=== PATIENT | male | born 1945 | race Caucasian/White ===

== ENCOUNTER → 2016-10-08 | Outpatient (CLI) | payer OTHER ==
[~2016-10-08] MED LIST: ASPI-586 PO; diclofenac; sertraline
--- OUTSIDE RECORDS SUMMARY | 2016-10-08 10:46 | XMS REPORT | Continuity of Care Document ---
Author Author [facility] Organization [facility] Address Unknown Phone Unavailable Care Team Providers Care Pot Annealer Name Role Phone PCP Unavailable Source Comments Some departments are not documenting in the electronic medical record. If you do not see the information that you expected, contact Release of Information in the Health Information Management department at [phone] for further assistance in locating additional records.[facility] Active Allergies and Adverse Reactions Allergen Noted Date Severity Reactions Comments Codeine 10/11/2006 High Allergy recorded in SMS: Codeine~Reactions: NAUSEA Current Medications Not on file Active Problems Not on file Social History Tobacco Use Types Packs/Day Years Used Date Never Assessed Plan of Care Health Maintenance Due Date Last Done Comments Physical (Comprehensive) 1952 Exam Pertussis Vaccine 1957 Tetanus Vaccine 1963 Colorectal Cancer 02/13/1996 Screening Shingles Vaccine 2006 Prevnar/Pneumovax (#1) 2011 Influenza Vaccine 03/28/2016 Results from Last 3 Months Not on file
--- NOTE | 2016-10-09 15:28 | Diagnostic Imaging Report ---
EXAMINATION: PET-CT. TECHNIQUE: Serum glucose level at the time of the study is: 100 mg/dL. 11.2 mCi of FDG was administered intravenously followed by obtaining PET images with corresponding noncontrast CT scan images. The CT scan was performed for anatomic correlation and attenuation correction and was not performed according to the diagnostic protocol of the areas covered. The scan was performed over the whole body. INDICATION: Pulmonary nodules. FINDINGS: The brain demonstrates symmetric FDG uptake with no definite focal lesion identified. There is slightly asymmetric, more prominent increased FDG uptake in the posterior aspect of the nasopharynx which does not appear to be associated with an obvious mass based on the CT scan. There is also diffuse activity seen in the tongue and palate region. This is possibly inflammatory or physiologic. There is also prominent muscle activity in the root of the neck seen with no definitive hypermetabolic lymph node in the cervical chain seen. In the lung, there is a hypermetabolic nodule with a maximum SUV of 6.2 cm in the right upper lobe. This is associated with the CT scan measurement of 1 cm. In the left upper lobe, there is a larger nodule measuring 1.5 cm. This has minimally enlarged compared to the 08/16/2016 CT scan. The maximum SUV in this left upper lobe nodule at the level of the aortic arch is 10. There is no other hypermetabolic lung nodule and no hypermetabolically enlarged lymph node in the mediastinum or wes on either side. Images of the abdomen and pelvis demonstrate excretion of contrast in the urinary tract. There is right hip replacement. No hypermetabolic mass or enlarged lymph node is seen. There is an infrarenal AAA seen measuring 5.1 cm in maximum caliber. This is extending into the iliac arteries with a right common iliac aneurysm measuring 2 cm extending to the iliac bifurcation with normal caliber of the internal iliac and external iliac arteries on the right side. The left common iliac artery is also dilated just proximal to the bifurcation at 1.5 cm in caliber. There is no hypermetabolic suspicious mass seen in the lower extremities. There is right knee replacement resulting in beam hardening artifacts. IMPRESSION: 1. Hypermetabolic suspicious pulmonary nodules in the right upper lobe and in the left upper lobe with no associated hilar or mediastinal lymphadenopathy. No other suspicious hypermetabolic activity is seen. These nodules are most likely related to synchronous early lung cancers. 2. Significant increased FDG activity around the oral cavity and nasopharynx is favored to be physiologic or inflammatory in nature. Correlate with physical exam. 3. Infrarenal abdominal aortic aneurysm measuring 5.1 CM in caliber. The findings were discussed with the Dr. Lunsford at the [place], by Dr. Amina Jo 10/10/2016 2 PM. Dictated by: Dictated on workstation # [id number]
== END ==
LOC: RAD 10:43
PROVIDERS: ATTEND Internal Medicine
DX: D38.1 Neoplasm of uncertain behavior of trachea, bronchus and lung (principal)
CPT/HCPCS: 78816

== ENCOUNTER → 2016-10-14 | Outpatient (CLI) | payer OTHER ==
[~2016-10-14] MED LIST changes: +GADOBUTROL 7.5 MMOL/7.5 ML (GADAVIST) VIAL IV ONE
--- OUTSIDE RECORDS SUMMARY | 2016-10-14 11:28 | XMS REPORT | Continuity of Care Document ---
Author Author [facility] Organization [facility] Address Unknown Phone Unavailable Care Team Providers Care Carnallite Plant Operator Name Role Phone PCP Unavailable Source Comments Some departments are not documenting in the electronic medical record. If you do not see the information that you expected, contact Release of Information in the Health Information Management department at [phone] for further assistance in locating additional records.[facility] Active Allergies and Adverse Reactions Allergen [...]
--- NOTE | 2016-10-14 13:25 | Diagnostic Imaging Report ---
PROCEDURE: MR imaging of the brain with and without contrast. TECHNIQUE: Multiplanar, multisequence MR imaging of the brain was performed with and without contrast. INDICATION: Right eye ptosis. Lung nodules. 7 mL of Gadovist is administered intravenously. FINDINGS: There is no diffusion restriction to suggest an acute infarct or other diffusion abnormality. The brain parenchyma demonstrates minimal periventricular and deep white matter T2 hyperintense signal abnormality without associated significant mass effect or postcontrast enhancement compatible with chronic microvascular ischemic changes. This is expected for the patient's age. There is no enhancing mass. No demyelinating plaques. There is no hydrocephalus. No extra-axial fluid collection is seen. The central vascular flow voids appear unremarkable. The pituitary gland is normal in size. No hypothalamic or pineal region mass. There is mild mucosal thickening seen in the maxillary sinuses and mucus retention cyst in the right maxillary sinus. The orbits appear symmetric with no gross abnormality identified in the globes, the extraocular muscles or the optic nerves. IMPRESSION: No acute infarct or enhancing mass. Dictated by: Dictated on workstation # [id number]
== END ==
LOC: RAD 11:25
PROVIDERS: ATTEND Psychiatry & Neurology Neurology
DX: H02.401 Unspecified ptosis of right eyelid (principal)
CPT/HCPCS: 70553

== ENCOUNTER → 2016-10-17 | Day surgery (SDC) | payer OTHER ==
[2016-10-17] VITALS (14 sets, daily range): BP systolic 130–179; BP diastolic 73–101
[~2016-10-17] VITALS: Ht 170.2 cm; Wt 72.6 kg
[~2016-10-17] MED LIST changes: -GADOBUTROL 7.5 MMOL/7.5 ML (GADAVIST) VIAL IV ONE; +HYDROcodone/APAP 5 MG/325 MG (LORTAB) TAB PO PRN; +LIDOCAINE 1% INJ 20 ML (XYLOCAINE) VIAL INJ ONE; +LIDOCAINE 1% INJ 20 ML (XYLOCAINE) VIAL ONE; +fentaNYL INJECTION 100 MCG/2 ML AMP ONE
[2016-10-17 07:30] LABS: MEAN PLATELET VOLUME 10.5 FL (7.4-10.4); RED BLOOD COUNT 4.98 10^6/uL (4.35-5.85); RED CELL DISTRIBUTION WIDTH 14.2 % (10.0-14.5); WHITE BLOOD COUNT 8.4 10^3/uL (4.3-11.0)
[2016-10-17 07:40] LABS: PROTHROMBIN TIME PATIENT 13.3 SEC (12.2-14.7)
--- NOTE | 2016-10-17 09:44 | Diagnostic Imaging Report ---
EXAMINATION: CT-guided biopsy-lung. INDICATION: Bilateral suspicious lung nodules may represent synchronous primary tumors. Current history and physical and other medical records are reviewed prior to the procedure. CONSENT: Informed consent was obtained from the patient. The risks, benefits, potential complications and alternatives were reviewed and all questions answered to the patient's satisfaction. The patient's vital signs, cardiac rhythm, and pulse oximetry were observed throughout the procedure by qualified nursing personnel. Sedation/medications: none. FINDINGS: 1.5 cm suspicious left upper lobe nodule. PROCEDURE: After maximal sterile barrier technique preparation and draping, 1% lidocaine was utilized for local anesthesia. With the patient in supine position, and via anterior intercostal approach, a 19-gauge guide needle is introduced into the left upper lobe nodule under CT scan guidance. After confirming adequate positioning with saved CT images, multiple 20 gauge core biopsy specimens were obtained. Autologous blood patch injected in the tract as the guide needle was removed The patient tolerated the procedure well with no immediate complications. IMPRESSION: Successful CT-guided biopsy of left upper lobe pulmonary nodule. Dictated by: Dictated on workstation # [id number]
--- NOTE | 2016-10-17 09:44 | Discharge Instructions ---
Discharge Instructions Home Medicaitons Changes Hold any current blood thinner home medications for [24 hours]. VERONICA MURPHY MD Oct 17, 2016 09:44
--- NOTE | 2016-10-17 13:28 | Diagnostic Imaging Report ---
Portable upright radiograph of the chest. INDICATION: Post lung biopsy. FINDINGS: There is left basilar opacity likely related to atelectasis. There is no pneumothorax. Left suprahilar pulmonary nodule is seen. The right apical nodule seen on the recent CT and PET scan studies is faintly visualized. The heart size is normal. IMPRESSION: Left basilar mild atelectasis. Left suprahilar and right upper lobe nodule. Dictated by: Dictated on workstation # [id number]
--- OUTSIDE RECORDS SUMMARY | 2016-10-20 08:27 | XMS REPORT | Continuity of Care Document ---
Author Author [facility] Organization [facility] Address Unknown Phone Unavailable Care Team Providers Care Personal Financial Representative Name Role Phone PCP Unavailable Source Comments Some departments are not documenting in the electronic medical record. If you do not see the information that you expected, contact Release of Information in the Health Information Management department at [phone] for further assistance in locating additional records.[facility] Active Allergies and Adverse Reactions Allergen Noted Date Severity Reactions Comments Codeine 10/11/2006 High Allergy recorded in SMS: Codeine~Reactions: NAUSEA Current Medications Not on file Active Problems Not on file Social History Tobacco Use Types Packs/Day Years Used Date Never Assessed Plan of Care Health Maintenance Due Date Last Done Comments Hepatitis C Screening 1945 Physical (Comprehensive) 1953 Exam Pertussis Vaccine 1957 Tetanus Vaccine 1963 Colorectal Cancer 02/13/1996 Screening Shingles Vaccine 2006 Prevnar/Pneumovax (#1) 2011 Influenza Vaccine 03/28/2017 Results from Last 3 Months Not on file
== END | disposition home or self-care (01) ==
LOC: DELPENDDIS → RAD 06:53
PROVIDERS: ATTEND Internal Medicine
DX: C34.12 Malignant neoplasm of upper lobe, left bronchus or lung (principal); I25.10 Atherosclerotic heart disease of native coronary artery without angina pectoris; I10 Essential (primary) hypertension; Z95.5 Presence of coronary angioplasty implant and graft
CPT/HCPCS: 36415; 71035; 77012; 81235; 85027; 85610; 85730; 88305; 88344; 88368; 88381

== ENCOUNTER 2016-12-24 10:25 | Day surgery (SDC) | payer OTHER ==
[2016-12-24] VITALS (15 sets, daily range): BP systolic 109–187; BP diastolic 66–115
[~2016-12-24] VITALS: Ht 170.2 cm; Wt 72.6 kg
[~2016-12-24 10:25] MED LIST changes: -HYDROcodone/APAP 5 MG/325 MG (LORTAB) TAB PO PRN; -LIDOCAINE 1% INJ 20 ML (XYLOCAINE) VIAL INJ ONE; -LIDOCAINE 1% INJ 20 ML (XYLOCAINE) VIAL ONE; -fentaNYL INJECTION 100 MCG/2 ML AMP ONE
[2016-12-24] MEDS ORDERED: LIDOCAINE 1% INJ 20 ML (XYLOCAINE) VIAL INJ ONE (10:45)
[2016-12-24 10:51] LABS: RED BLOOD COUNT 5.31 10^6/uL (4.35-5.85); RED CELL DISTRIBUTION WIDTH 14.1 % (10.0-14.5); WHITE BLOOD COUNT 10.1 10^3/uL (4.3-11.0)
[2016-12-24 11:09] LABS: PROTHROMBIN TIME PATIENT 12.6 SEC (12.2-14.7)
--- NOTE | 2016-12-24 13:22 | Pre-Procedure Progress Note ---
Pre-Procedure Progress Note H&P Reviewed The H&P was reviewed, patient examined and no changes noted. Date H&P Reviewed: December 24, 2016 Time H&P Reviewed: 12:00 Pre-Procedure Diagnosis: lung nodule VERONICA MURPHY MD December 24, 2016 13:22
--- NOTE | 2016-12-24 13:23 | Discharge Instructions ---
Discharge Instructions Home Medicaitons Changes Hold Aspirin for [24 hours]. VERONICA MURPHY MD December 24, 2016 13:23
[2016-12-24] MEDS ORDERED: HYDROcodone/APAP 5 MG/325 MG (LORTAB) TAB PO PRN (13:30)
--- NOTE | 2016-12-24 14:14 | Diagnostic Imaging Report ---
EXAMINATION: CT-guided biopsy-lung. INDICATION: Right upper lobe nodule suspicious for cancer. The patient has a biopsy-proven left upper lobe lung cancer. Current history and physical and other medical records are reviewed prior to the procedure. CONSENT: Informed consent was obtained from the patient. The risks, benefits, potential complications and alternatives were reviewed and all questions answered to the patient's satisfaction. The patient's vital signs, cardiac rhythm, and pulse oximetry were observed throughout the procedure by qualified nursing personnel. Sedation/medications: none. FINDINGS: Right upper lobe suspicious nodule. PROCEDURE: After maximal sterile barrier technique preparation and draping, 1% lidocaine was utilized for local anesthesia. With the patient in right side down position, and via posterior intercostal approach, a 19-gauge guide needle is introduced into the right upper lobe nodule under CT scan guidance. After confirming adequate positioning with saved CT images, multiple 20 gauge core biopsy specimens were obtained. 3 cc of autologous blood patch injected in the tract as the guide needle was removed The patient tolerated the procedure well with no immediate complications. Expected small amount of hemorrhage is seen around the nodule however. IMPRESSION: Successful CT-guided biopsy of right upper lobe nodule. Dictated by: Dictated on workstation # [id number]
--- NOTE | 2016-12-24 15:45 | Diagnostic Imaging Report ---
EXAMINATION: Portable expiratory upright view of the chest. INDICATION: Lung nodule status post biopsy. FINDINGS: There is consolidation in the right upper lobe, compatible with a small to moderate pulmonary hemorrhage around the biopsy site. There is mild left basilar atelectasis. No pneumothorax. No significant effusion. The heart size is normal. IMPRESSION: Small to moderate pulmonary hemorrhage in the right upper lobe near the biopsy site. No pneumothorax. Dictated by: Dictated on workstation # [id number]
== END 2016-12-24 17:25 | disposition home or self-care (01) ==
LOC: RAD 10:25
PROVIDERS: ATTEND Internal Medicine Hematology & Oncology
DX: C34.11 Malignant neoplasm of upper lobe, right bronchus or lung (principal); C34.12 Malignant neoplasm of upper lobe, left bronchus or lung; F17.210 Nicotine dependence, cigarettes, uncomplicated; I25.10 Atherosclerotic heart disease of native coronary artery without angina pectoris; I11.0 Hypertensive heart disease with heart failure; I50.32 Chronic diastolic (congestive) heart failure; J44.9 Chronic obstructive pulmonary disease, unspecified; F43.10 Post-traumatic stress disorder, unspecified; Z95.5 Presence of coronary angioplasty implant and graft; Z85.818 Personal history of malignant neoplasm of other sites of lip, oral cavity, and pharynx; Z85.830 Personal history of malignant neoplasm of bone; Z92.21 Personal history of antineoplastic chemotherapy; Z92.3 Personal history of irradiation
CPT/HCPCS: 36415; 71035; 77012; 85027; 85610; 85730; 88305; 88344

== ENCOUNTER 2017-02-20 10:00 | Outpatient (RCR) | payer OTHER ==
[2017-02-20 10:32] LABS: BASOPHILS % (AUTO) 0 % (0-10); EOSINOPHILS # (AUTO) 0.9 10^3/uL (0.0-0.3); EOSINOPHILS % (AUTO) 17 % (0-10); LYMPHOCYTES # (AUTO) 0.9 X 10^3 (1.0-4.0); LYMPHOCYTES % (AUTO) 16 % (12-44); MEAN CORPUSCULAR HEMOGLOBIN 29 PG (25-34); MEAN CORPUSCULAR HGB CONC 33 G/DL (32-36); MEAN CORPUSCULAR VOLUME 88 FL (80-99); MEAN PLATELET VOLUME 9.8 FL (7.4-10.4); MONOCYTES # (AUTO) 0.9 X 10^3 (0.0-1.0); MONOCYTES % (AUTO) 16 % (0-12); NEUTROPHILS # (AUTO) 2.9 X 10^3 (1.8-7.8); NEUTROPHILS % (AUTO) 52 % (42-75); PLATELET COUNT 160 10^3/uL (130-400); RED BLOOD COUNT 4.78 10^6/uL (4.35-5.85); RED CELL DISTRIBUTION WIDTH 14.6 % (10.0-14.5); WHITE BLOOD COUNT 5.6 10^3/uL (4.3-11.0)
[2017-02-20 11:45] LABS: ALANINE AMINOTRANSFERASE 14 U/L (0-55); ALBUMIN 3.7 GM/DL (3.2-4.5); ANION GAP 10 MMOL/L (5-14); ASPARTATE AMINO TRANSFERASE 19 U/L (5-34); BILIRUBIN,TOTAL 0.4 MG/DL (0.1-1.0); BLOOD UREA NITROGEN 8 MG/DL (7-18); BUN/CREATININE RATIO 12; CALCIUM 8.8 MG/DL (8.5-10.1); CARBON DIOXIDE 25 MMOL/L (21-32); CHLORIDE 98 MMOL/L (98-107); CREATININE SERUM 0.68 MG/DL (0.60-1.30); GFR ESTIMATED > 60; GLUCOSE 104 MG/DL (70-105); POTASSIUM 4.5 MMOL/L (3.6-5.0); SODIUM 133 MMOL/L (135-145); TOTAL PROTEIN 6.5 GM/DL (6.4-8.2)
== END 2017-02-25 11:45 | disposition home or self-care (01) ==
LOC: ONC 10:00
PROVIDERS: ATTEND Internal Medicine Hematology & Oncology
DX: C34.12 Malignant neoplasm of upper lobe, left bronchus or lung (principal); C34.11 Malignant neoplasm of upper lobe, right bronchus or lung; F17.210 Nicotine dependence, cigarettes, uncomplicated; I25.10 Atherosclerotic heart disease of native coronary artery without angina pectoris; I11.0 Hypertensive heart disease with heart failure; I50.32 Chronic diastolic (congestive) heart failure; J44.9 Chronic obstructive pulmonary disease, unspecified; E11.9 Type 2 diabetes mellitus without complications; F43.10 Post-traumatic stress disorder, unspecified; Z85.818 Personal history of malignant neoplasm of other sites of lip, oral cavity, and pharynx; Z85.830 Personal history of malignant neoplasm of bone; Z92.21 Personal history of antineoplastic chemotherapy; Z92.3 Personal history of irradiation; Z79.899 Other long term (current) drug therapy
CPT/HCPCS: 36415; 80053; 84153; 84439; 84443; 85025; 99213; 99214

== ENCOUNTER → 2017-05-28 | Outpatient (CLI) | payer OTHER ==
[~2017-05-28] MED LIST changes: +CATHETER FLUSH 10 ML SYR IV PRN; +IOHEXOL 350 MG/ML 100 ML (OMNIPAQUE 350) VIAL IV ONE; +NS 100 ML (IVPB) BAG IV ONE
--- NOTE | 2017-05-28 16:24 | Diagnostic Imaging Report ---
EXAMINATION: CT neck and chest performed with intravenous contrast. 100 mL of Omnipaque 350 is administered intravenously. INDICATION: Lung cancer. COMPARISON: PET/CT of 10/08/2016. FINDINGS: CT NECK: There is mucosal thickening seen in the supraglottic aspect of the larynx in a diffuse fashion without a focal area of a discrete mass lesion identified. The rest of the mucosal pharyngeal space appear unremarkable. The thyroid, the parotid and the submandibular glands appear unremarkable. No significantly enlarged lymph nodes are seen in the cervical chain. The visualized portions of the orbits appear grossly unremarkable. There is mild mucosal retention cyst in the inferior aspect of the right maxillary sinus and mild mucosal thickening along the medial aspect of the mastoid air cells bilaterally. The middle ear cavities are clear. The osseous structures demonstrate no destructive mass. CT CHEST: There is a 1 cm right lung apex nodule and a 0.9 cm left upper lobe nodule. The right lung apex nodule is unchanged from 10/08/2016 exam. The left upper lobe nodule is significantly smaller compared to prior measurements of 1.5 cm. The lungs demonstrate otherwise no significant consolidation, mass or other suspicious nodule. There is nonspecific tiny nodule measuring 3 mm in the lateral aspect of the right upper lobe, appears to be stable from 08/16/2016 exam of uncertain significance. The heart size is normal. No mediastinal mass. No significantly enlarged lymph node is seen. No hilar or axillary significant lymphadenopathy. No aortic dissection. No pericardial or pleural effusion. The osseous structures appear grossly unremarkable. IMPRESSION: CT NECK: Mucosal thickening in a diffuse fashion in the supraglottic larynx of uncertain etiology. Consider inflammatory or infectious laryngitis. No definite focal mass. ENT evaluation is recommended. CT CHEST: 1. Significant improvement in the left upper lobe nodule measuring now 0.9 cm. 2. Stable 1 cm right lung apex nodule. 3. Indeterminate stable 3 mm lateral right upper lobe nodule seen on axial image 17. Followup exams recommended. Dictated by: Dictated on workstation # [id number]
== END ==
LOC: RAD 11:49
PROVIDERS: ATTEND Internal Medicine Hematology & Oncology
DX: C34.11 Malignant neoplasm of upper lobe, right bronchus or lung (principal); R91.8 Other nonspecific abnormal finding of lung field; J38.7 Other diseases of larynx
CPT/HCPCS: 70491; 71260

== ENCOUNTER 2017-06-03 14:23 | Outpatient (RCR) | payer OTHER ==
[2017-04-29 14:36] LABS: BASOPHILS % (AUTO) 0 % (0-10); EOSINOPHILS # (AUTO) 0.7 10^3/uL (0.0-0.3); EOSINOPHILS % (AUTO) 11 % (0-10); HEMATOCRIT 42 % (40-54); HEMOGLOBIN 14.5 G/DL (13.3-17.7); LYMPHOCYTES % (AUTO) 17 % (12-44); MEAN CORPUSCULAR HEMOGLOBIN 30 PG (25-34); MEAN CORPUSCULAR HGB CONC 34 G/DL (32-36); MEAN CORPUSCULAR VOLUME 86 FL (80-99); MEAN PLATELET VOLUME 9.8 FL (7.4-10.4); MONOCYTES # (AUTO) 0.9 X 10^3 (0.0-1.0); MONOCYTES % (AUTO) 14 % (0-12); NEUTROPHILS # (AUTO) 3.7 X 10^3 (1.8-7.8); NEUTROPHILS % (AUTO) 59 % (42-75); PLATELET COUNT 176 10^3/uL (130-400); RED CELL DISTRIBUTION WIDTH 14.7 % (10.0-14.5); WHITE BLOOD COUNT 6.3 10^3/uL (4.3-11.0)
[2017-04-29 14:56] LABS: ALANINE AMINOTRANSFERASE 13 U/L (0-55); ALBUMIN 3.9 GM/DL (3.2-4.5); ALKALINE PHOSPHATASE 56 U/L (40-136); BILIRUBIN,TOTAL 0.5 MG/DL (0.1-1.0); BUN/CREATININE RATIO 17; CALCIUM 8.7 MG/DL (8.5-10.1); CARBON DIOXIDE 28 MMOL/L (21-32); CHLORIDE 98 MMOL/L (98-107); GFR ESTIMATED > 60; GLUCOSE 66 MG/DL (70-105); POTASSIUM 4.4 MMOL/L (3.6-5.0); SODIUM 133 MMOL/L (135-145); TOTAL PROTEIN 6.9 GM/DL (6.4-8.2)
[~2017-06-03 14:23] MED LIST changes: -CATHETER FLUSH 10 ML SYR IV PRN; -IOHEXOL 350 MG/ML 100 ML (OMNIPAQUE 350) VIAL IV ONE; -NS 100 ML (IVPB) BAG IV ONE
[2017-06-03 14:43] LABS: BASOPHILS % (AUTO) 0 % (0-10); EOSINOPHILS # (AUTO) 1.1 10^3/uL (0.0-0.3); EOSINOPHILS % (AUTO) 12 % (0-10); HEMATOCRIT 44 % (40-54); HEMOGLOBIN 15.1 G/DL (13.3-17.7); LYMPHOCYTES # (AUTO) 1.2 X 10^3 (1.0-4.0); LYMPHOCYTES % (AUTO) 13 % (12-44); MEAN CORPUSCULAR HEMOGLOBIN 30 PG (25-34); MEAN CORPUSCULAR HGB CONC 35 G/DL (32-36); MEAN CORPUSCULAR VOLUME 86 FL (80-99); MEAN PLATELET VOLUME 9.8 FL (7.4-10.4); MONOCYTES # (AUTO) 1.3 X 10^3 (0.0-1.0); MONOCYTES % (AUTO) 14 % (0-12); NEUTROPHILS # (AUTO) 5.6 X 10^3 (1.8-7.8); NEUTROPHILS % (AUTO) 62 % (42-75); PLATELET COUNT 182 10^3/uL (130-400); RED BLOOD COUNT 5.05 10^6/uL (4.35-5.85); RED CELL DISTRIBUTION WIDTH 14.6 % (10.0-14.5); WHITE BLOOD COUNT 9.2 10^3/uL (4.3-11.0)
[2017-06-03 15:01] LABS: ALANINE AMINOTRANSFERASE 14 U/L (0-55); ALBUMIN 3.9 GM/DL (3.2-4.5); ALKALINE PHOSPHATASE 64 U/L (40-136); BILIRUBIN,TOTAL 0.5 MG/DL (0.1-1.0); BUN/CREATININE RATIO 14; CARBON DIOXIDE 25 MMOL/L (21-32); CHLORIDE 98 MMOL/L (98-107); CREATININE SERUM 0.69 MG/DL (0.60-1.30); GFR ESTIMATED > 60; GLUCOSE 95 MG/DL (70-105); POTASSIUM 4.8 MMOL/L (3.6-5.0); SODIUM 133 MMOL/L (135-145); TOTAL PROTEIN 6.8 GM/DL (6.4-8.2)
== END 2017-07-28 | disposition home or self-care (01) ==
LOC: ONC 14:23
PROVIDERS: ATTEND Internal Medicine Hematology & Oncology
DX: C34.12 Malignant neoplasm of upper lobe, left bronchus or lung (principal); C34.11 Malignant neoplasm of upper lobe, right bronchus or lung; F17.210 Nicotine dependence, cigarettes, uncomplicated; I25.10 Atherosclerotic heart disease of native coronary artery without angina pectoris; I11.0 Hypertensive heart disease with heart failure; I50.32 Chronic diastolic (congestive) heart failure; J44.9 Chronic obstructive pulmonary disease, unspecified; E11.9 Type 2 diabetes mellitus without complications; F43.10 Post-traumatic stress disorder, unspecified; E53.8 Deficiency of other specified B group vitamins; Z85.818 Personal history of malignant neoplasm of other sites of lip, oral cavity, and pharynx; Z85.830 Personal history of malignant neoplasm of bone; Z92.21 Personal history of antineoplastic chemotherapy; Z92.3 Personal history of irradiation; Z79.899 Other long term (current) drug therapy
CPT/HCPCS: 36415; 80053; 85025; 99213

== ENCOUNTER 2017-10-03 10:33 | Emergency (ER) | payer OTHER ==
[~2017-10-03] VITALS: Ht 170.2 cm; Wt 68.0 kg
[2017-10-03] MEDS ORDERED: OFLO10DR24 OT (10:43)
[2017-10-03] MEDS ORDERED: AMOX500C2 PO (10:43)
--- NOTE | 2017-10-03 10:44 | ED EENT ---
History of Present Illness General Chief Complaint: Pediatric Illness/Problems Stated Complaint: RT EAR DRAINAGE/HARD OF HEARING PT Source: patient Exam Limitations: no limitations History of Present Illness Date Seen by Provider: Oct 03, 2017 Time Seen by Provider: 10:40 Initial Comments To ER with reports of right ear drainage for the past 2 or 3 days. He slept with his hearing aid and last night and awakened with crust around the hearing aid and a painful right ear. Timing/Duration: abrupt Severity: moderate Location: ear (R) Associated Symptoms: denies symptoms Allergies and Home Medications Allergies Coded Allergies: No Known Drug Allergies (Unverified , 10/14/16) Home Medications Aspirin 81 Mg Tablet.dr, 81 MG PO DAILY, (Reported) Patient Home Medication List Home Medication List Reviewed: Yes Review of Systems Constitutional: see HPI Eyes: No Symptoms Reported Ears: See HPI, Pain, Purulent Discharge Nose: no symptoms reported Mouth: no symptoms reported Throat: no symptoms reported Respiratory: no symptoms reported Cardiovascular: no symptoms reported Musculoskeletal: no symptoms reported Past Qgbblau-Yslyku-Nuhnmh Hx Patient Social History Type Used: Cigarettes Recent Foreign Travel: No Contact w/Someone Who Travel: No Physical Exam General Appearance: WD/WN, no apparent distress Eyes: bilateral eye normal inspection, bilateral eye PERRL, bilateral eye EOMI Ears: right ear other (tympanic membrane unable to be visualized due to the purulent drainage and swelling of the ear canal. There is swelling and drainage in the ear canal.), bilateral ear auricle normal Mouth/Throat: normal mouth inspection, pharynx normal Neck: non-tender, full range of motion Cardiovascular: regular rate, rhythm, no murmur Respiratory: normal breath sounds, no respiratory distress, no accessory muscle use Gastrointestinal: normal bowel sounds Neurologic/Psychiatric: alert, normal mood/affect Skin: normal color, warm/dry There is no erythema or tenderness over the mastoid process. Departure Impression Impression: Primary Impression: Otitis externa Disposition: HOME, SELF-CARE Condition: Stable Departure-Patient Inst. Decision time for Depature: 10:41 Referrals: NO,LOCAL PHYSICIAN (PCP/Family) Primary Care Physician Patient Instructions: Outer Ear Infection Add. Discharge Instructions: 1. Apply the eardrops as directed.. Do not wear your hearing aid in the right ear for the next 5 days 2. Oral antibiotics as directed. Follow-up with your doctor next week for recheck. Return to ER for any worsening. All discharge instructions reviewed with patient and/or family. Voiced understanding. Scripts Ofloxacin (Floxin) 10 Ml Drops 10 DROPS OT BID for 7 Days, #1 DROPS Prov: HUBERT CASANOVA APRN 10/03/17 Amoxicillin (Amoxicillin) 500 Mg Capsule 500 MG PO TID, #21 CAP Prov: HUBERT CASANOVA APRN 10/03/17 HUBERT CASANOVA APRN Oct 03, 2017 10:44
--- OUTSIDE RECORDS SUMMARY | 2017-10-05 04:20 | XMS REPORT | Clinical Summary ---
Author Author [facility] Organization [facility] Address Unknown Phone Unavailable Care Team Providers Care Step Down Specialist Name Role Phone PCP Unavailable Source Comments Some departments are not documenting in the electronic medical record. If you do not see the information that you expected, contact Release of Information in the Health Information Management department at [phone] for further assistance in locating additional records.[facility] Allergies Active Allergy Reactions Severity Noted Date Comments [place] 10/11/2006 Allergy recorded in SMS: Codeine~Reactions: NAUSEA Current Medications Not on file Active Problems Not on file Social History Tobacco Use Types Packs/Day Years Used Date Never Assessed Sex Assigned at Date Recorded Not on file Last Filed Vital Signs Not on file Plan of Treatment Health Maintenance Due Date Last Done Comments HEPATITIS C SCREENING 1945 PHYSICAL (COMPREHENSIVE) 1952 EXAM PERTUSSIS VACCINE 1957 TETANUS VACCINE 1963 COLORECTAL CANCER 02/13/1996 SCREENING SHINGLES VACCINE 2006 PREVNAR/PNEUMOVAX (#1) 2011 INFLUENZA VACCINE 04/27/2018 Results Not on filefrom Last 3 Months
== END 2017-10-03 10:49 | disposition home or self-care (01) ==
LOC: EDUNIT# 10:33 → ER 10:34
DX: H60.91 Unspecified otitis externa, right ear (principal); Z79.82 Long term (current) use of aspirin
CPT/HCPCS: 99282

== ENCOUNTER → 2017-11-11 | Outpatient (CLI) | payer OTHER ==
[~2017-11-11] MED LIST changes: +AMOX500C2 PO; +BARIUM SUSPENSION 2.1% (VANILLA SILQ) 450 ML PO ONE; +CATHETER FLUSH 10 ML SYR IV PRN; +IOHEXOL 350 MG/ML 100 ML (OMNIPAQUE 350) VIAL IV ONE; +NS 250 ML (IVPB) BAG IV ONE; +OFLO10DR24 OT
--- NOTE | 2017-11-11 12:38 | Diagnostic Imaging Report ---
INDICATION: History of throat and lung carcinoma. TECHNIQUE: CT imaging of the neck, chest, abdomen following the administration of contrast. CORRELATION STUDY: 05/28/2017. FINDINGS: CT neck: There is again seen rather extensive mucosal thickening enhancement and inflammatory type change about supraglottic soft tissues as well as of the base of the oropharynx. There is some circumferential narrowing present. This perhaps is slightly less severe from prior study. While there is diffuse enhancement, definitive enhancing mass lesion is not otherwise suggested. The vallecula appears to be slightly less edematous enhancement at the base of the oral pharynx. Parapharyngeal fat planes are maintained. Few prominent but nonpathologic enlarged cervical lymph nodes are present. The parotid glands are unremarkable. Submandibular glands are distorted. Rather extensive mucosal thickening and calcification of the carotid arteries including common carotid artery, carotid bifurcation as well as internal carotid arteries with significant areas of narrowing suggested. Asymmetrically smaller right internal jugular vein. Mild asymmetric areas of mucosal thickening particularly ethmoid air cells. Patient is edentulous. There is opacification multiple mastoid air cells, changed from prior study. Extensive intracranial vascular calcification. A significant narrowing and/or perhaps near occlusion of the distal vertebral arteries particularly on the left. CT CHEST: Heart size within normal limits. Coronary artery calcification with at least moderate severity. No pathologically enlarged mediastinal lymph nodes. Calcified right hilar lymph nodes present. Advanced emphysematous change but the lung parenchyma. Irregular parenchymal density in the posterior right upper lobe is present. There is a slightly more focal solid component centrally measuring 8 mm, previously measuring approximately 10 mm. However, there is increasing surrounding groundglass changes. Several, at least 3 small nodules in the right lower lobe are present. At least one of these may be calcified. Largest measures up to 4-5 mm. Consolidated, scarlike formation with distortion of central aspect left upper lung field appears generally stable. This extends to the left wes. CT ABDOMEN: Liver, gallbladder, spleen, pancreas and adrenal glands unchanged and unremarkable. Low-density mass superior pole left kidney favoring probable cyst. There is presence of a fusiform infrarenal abdominal aortic aneurysm. Aneurysmal sac size 5.8 x 5.2 cm. Moderate peripheral thrombus is noted with irregular contour of the contrast opacified channel. May be very small dissection at the proximal aspect. The aneurysm extends beyond the area imaged likely at the level of the aortic bifurcation. Calcification of the take off of the great vessels is present. Aneurysm appears increased in size from study of one year earlier measuring 5.1 x 4.5 cm at that time. Partially visualized gastrointestinal tract demonstrates no evidence for obstruction. Few prominent fluid filled loops of small bowel left mid abdomen. Very faint sclerosis over the right iliac bone of unknown etiology or significance at this time. Mild loss of vertebral body height are present of the thoracic and lumbar spine. No acute appearing compression deformity. IMPRESSION: CT neck: 1. Extensive edema, thickening, enhancement inflammatory appearance about the supraglottic soft tissues. This appears perhaps slightly less pronounced. Definitive focal enhancing mass lesion does not appear to be present. 2. Extensive vascular calcification including carotid arteries and vertebral arteries. Scattered areas of narrowing both intracranially and extracranially are present. CT CHEST: 1. Relatively stable, scarlike linear parenchymal density about the left upper lobe. 2. Nodule over the right lung apex persists with solid component generally stable. However, surrounding groundglass opacity appears adversely changed. This could be inflammatory in nature, neoplasm is definitely in the differential at this time. 3. Multiple additional smaller nodules are present. These may very well reflect a calcified and noncalcified granulomas. Followup imaging evaluation is recommended. CT ABDOMEN: 1. Negative for abdominal metastatic disease. 2. Presence of an infrarenal abdominal aortic aneurysm incompletely visualized. The visualized segment measuring 5.8 x 5.2 cm. Does appear increased in size since prior study of September 2016. Report was faxed to Yissel/fire management officer of Dr Latia Alfredo by arun at 12:39 p.m. Dictated by: Dictated on workstation # [id number]
== END ==
LOC: RAD 09:48
PROVIDERS: ATTEND Internal Medicine Hematology & Oncology
DX: C34.11 Malignant neoplasm of upper lobe, right bronchus or lung (principal); I65.23 Occlusion and stenosis of bilateral carotid arteries; R60.0 Localized edema; I67.2 Cerebral atherosclerosis; I71.4 Abdominal aortic aneurysm, without rupture; Z85.819 Personal history of malignant neoplasm of unspecified site of lip, oral cavity, and pharynx
CPT/HCPCS: 70491; 71260; 74160

== ENCOUNTER 2017-11-18 14:10 | Outpatient (RCR) | payer OTHER ==
[2017-08-26 14:35] LABS: BASOPHILS % (AUTO) 0 % (0-10); EOSINOPHILS % (AUTO) 12 % (0-10); HEMATOCRIT 43 % (40-54); HEMOGLOBIN 15.1 G/DL (13.3-17.7); LYMPHOCYTES # (AUTO) 1.3 X 10^3 (1.0-4.0); LYMPHOCYTES % (AUTO) 17 % (12-44); MEAN CORPUSCULAR HEMOGLOBIN 30 PG (25-34); MEAN CORPUSCULAR HGB CONC 35 G/DL (32-36); MEAN CORPUSCULAR VOLUME 87 FL (80-99); MEAN PLATELET VOLUME 9.6 FL (7.4-10.4); MONOCYTES # (AUTO) 1.1 X 10^3 (0.0-1.0); MONOCYTES % (AUTO) 14 % (0-12); NEUTROPHILS # (AUTO) 4.5 X 10^3 (1.8-7.8); NEUTROPHILS % (AUTO) 57 % (42-75); PLATELET COUNT 183 10^3/uL (130-400); RED BLOOD COUNT 4.96 10^6/uL (4.35-5.85); RED CELL DISTRIBUTION WIDTH 14.8 % (10.0-14.5); WHITE BLOOD COUNT 7.9 10^3/uL (4.3-11.0)
[2017-08-26 15:03] LABS: ALANINE AMINOTRANSFERASE 14 U/L (0-55); ALBUMIN 3.7 GM/DL (3.2-4.5); ALKALINE PHOSPHATASE 57 U/L (40-136); BILIRUBIN,TOTAL 0.4 MG/DL (0.1-1.0); BUN/CREATININE RATIO 12; CALCIUM 8.7 MG/DL (8.5-10.1); CARBON DIOXIDE 27 MMOL/L (21-32); CHLORIDE 97 MMOL/L (98-107); CREATININE SERUM 0.66 MG/DL (0.60-1.30); GFR ESTIMATED > 60; GLUCOSE 81 MG/DL (70-105); POTASSIUM 4.4 MMOL/L (3.6-5.0); SODIUM 132 MMOL/L (135-145); TOTAL PROTEIN 6.5 GM/DL (6.4-8.2)
[2017-11-11 10:16] LABS: BASOPHILS % (AUTO) 0 % (0-10); EOSINOPHILS # (AUTO) 1.2 10^3/uL (0.0-0.3); EOSINOPHILS % (AUTO) 19 % (0-10); HEMATOCRIT 41 % (40-54); HEMOGLOBIN 13.8 G/DL (13.3-17.7); LYMPHOCYTES # (AUTO) 1.1 X 10^3 (1.0-4.0); LYMPHOCYTES % (AUTO) 18 % (12-44); MEAN CORPUSCULAR HEMOGLOBIN 30 PG (25-34); MEAN CORPUSCULAR HGB CONC 34 G/DL (32-36); MEAN CORPUSCULAR VOLUME 89 FL (80-99); MEAN PLATELET VOLUME 9.8 FL (7.4-10.4); MONOCYTES # (AUTO) 0.9 X 10^3 (0.0-1.0); MONOCYTES % (AUTO) 15 % (0-12); NEUTROPHILS # (AUTO) 2.8 X 10^3 (1.8-7.8); NEUTROPHILS % (AUTO) 47 % (42-75); PLATELET COUNT 214 10^3/uL (130-400); RED BLOOD COUNT 4.59 10^6/uL (4.35-5.85); RED CELL DISTRIBUTION WIDTH 14.5 % (10.0-14.5)
[2017-11-11 10:37] LABS: ALANINE AMINOTRANSFERASE 9 U/L (0-55); ALBUMIN 3.6 GM/DL (3.2-4.5); ALKALINE PHOSPHATASE 63 U/L (40-136); BILIRUBIN,TOTAL 0.4 MG/DL (0.1-1.0); BUN/CREATININE RATIO 13; CALCIUM 8.5 MG/DL (8.5-10.1); CARBON DIOXIDE 28 MMOL/L (21-32); CHLORIDE 95 MMOL/L (98-107); CREATININE SERUM 0.77 MG/DL (0.60-1.30); GFR ESTIMATED > 60; GLUCOSE 143 MG/DL (70-105); POTASSIUM 3.9 MMOL/L (3.6-5.0); SODIUM 129 MMOL/L (135-145); TOTAL PROTEIN 6.2 GM/DL (6.4-8.2)
[~2017-11-18 14:10] MED LIST changes: -BARIUM SUSPENSION 2.1% (VANILLA SILQ) 450 ML PO ONE; -CATHETER FLUSH 10 ML SYR IV PRN; -IOHEXOL 350 MG/ML 100 ML (OMNIPAQUE 350) VIAL IV ONE; -NS 250 ML (IVPB) BAG IV ONE
== END 2017-11-24 | disposition home or self-care (01) ==
LOC: ONC 14:10
PROVIDERS: ATTEND Internal Medicine Hematology & Oncology
DX: C34.12 Malignant neoplasm of upper lobe, left bronchus or lung (principal); C34.11 Malignant neoplasm of upper lobe, right bronchus or lung; F17.210 Nicotine dependence, cigarettes, uncomplicated; I25.10 Atherosclerotic heart disease of native coronary artery without angina pectoris; I11.0 Hypertensive heart disease with heart failure; I50.32 Chronic diastolic (congestive) heart failure; J44.9 Chronic obstructive pulmonary disease, unspecified; E11.9 Type 2 diabetes mellitus without complications; F43.10 Post-traumatic stress disorder, unspecified; E53.8 Deficiency of other specified B group vitamins; Z85.818 Personal history of malignant neoplasm of other sites of lip, oral cavity, and pharynx; Z85.830 Personal history of malignant neoplasm of bone; Z92.21 Personal history of antineoplastic chemotherapy; Z92.3 Personal history of irradiation; Z79.899 Other long term (current) drug therapy
CPT/HCPCS: 36415; 80053; 82378; 84443; 85025; 99213

== ENCOUNTER → 2017-11-21 | Outpatient (CLI) | payer OTHER, MEDICARE ==
[~2017-11-21] MED LIST changes: +GADOBUTROL 7.5 MMOL/7.5 ML (GADAVIST) VIAL IV ONE
--- NOTE | 2017-11-21 17:49 | Diagnostic Imaging Report ---
PROCEDURE: MRI lumbar spine with and without contrast. TECHNIQUE: Multiplanar, multisequence MRI of the lumbar spine was performed with and without contrast. INDICATION: Low back pain, no known injury. History of head and neck cancer as well as lung cancer. COMPARISON: Relevant comparisons limited to CT fusion PET performed on 10/08/2016. FINDINGS: There is abnormal marrow replacement T1 hypo and T2 hyperintense in the L3 vertebral body with diffuse abnormal enhancement following contrast. There is a mild superior endplate concavity resulting in about 20% stature loss. The altered signal in the edematous pattern however is out of proportion to this mild likely recent fracture and pathological injury owing to neoplastic infiltration is suspected. Endplate concavity is greatest eccentric to the left. There was no paravertebral mass, hemorrhage, or fluid collection. Abnormal marrow extends posteriorly into the left L3 pedicle. No epidural soft tissue mass. The remaining lumbar levels revealed no additional suspicious marrow signal abnormalities. This patient has a very large infrarenal abdominal aortic aneurysm measuring a diameter of 5.5 cm, not convincingly changed from the prior however the saved images do not allow me to measure it on that study. 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 The disease extends into the left pedicle posteriorly. There is no extraosseous mass or epidural disease. The remaining lumbar levels are unremarkable. No intrathecal abnormality. Large atherosclerotic infrarenal abdominal aortic aneurysm without perianeurysmal hemorrhage or fluid collection. Dictated by: Dictated on workstation # [id number]
== END ==
LOC: RAD 16:01
PROVIDERS: ATTEND Internal Medicine Hematology & Oncology
DX: M43.8X6 Other specified deforming dorsopathies, lumbar region (principal); I71.4 Abdominal aortic aneurysm, without rupture; I70.0 Atherosclerosis of aorta; Z85.118 Personal history of other malignant neoplasm of bronchus and lung; Z85.89 Personal history of malignant neoplasm of other organs and systems
CPT/HCPCS: 72158

== ENCOUNTER → 2017-12-18 | Outpatient (CLI) | payer MEDICARE, OTHER ==
[~2017-12-18] MED LIST changes: +CATHETER FLUSH 10 ML SYR IV PRN; -GADOBUTROL 7.5 MMOL/7.5 ML (GADAVIST) VIAL IV ONE; +REGADENOSON 0.4 MG/5 ML SYR (LEXISCAN) IV ONE
[2017-12-18 08:40] VITALS: BP 139/78
[2017-12-18 09:18] VITALS: BP 144/71
[2017-12-18 16:59] VITALS: BP 139/78
--- NOTE | 2017-12-18 16:59 | Cardiology Stress Test Report ---
Stress Test Report Type of NM Stress Test: Test Type: LEXISCAN 0.4MG/5ML Date of Procedure/Referring: Date of Procedure: December 18, 2017 PCP Jyoti Hurd MD Admitting Physician No,Local Physician Indications: Chest pain Baseline Heart Rate: 80 Baseline Blood Pressure: Blood Pressure Systolic: 139 Blood Pressure Diastolic: 78 Baseline EKG: Baseline EKG: sinus rhythm Summary: The patient was brought to the stress lab after informed consent was taken. Stress test was performed according to the Lexiscan protocol. 0.4 mg of IV Lexiscan was given. Baseline EKG showed sinus rhythm at 80 BPM. Blood pressure 139/78 mmHg. Maximum heart rate of 108 bpm, blood pressure 151/70 mmHg. Low-grade exercise was performed. Patient did not have any chest pain, arrhythmias or EKG changes during the stress test. 10.87 mCi of Myoview were given for rest imaging and 28.8 mCi of Myoview given for stress imaging. Transient ischemic dilatation score of 1.11. Ejection fraction 72 percent. Normal wall motion. Normal perfusion during rest and stress. Conclusion: Pharmacological stress test is negative. Normal LV function. Normal myocardial perfusion imaging during stress and rest. Jyoti HURD MD December 18, 2017 4:59 pm
== END ==
LOC: CARD 06:51
PROVIDERS: ATTEND Internal Medicine Interventional Cardiology
DX: Z01.810 Encounter for preprocedural cardiovascular examination (principal); I25.10 Atherosclerotic heart disease of native coronary artery without angina pectoris; E78.5 Hyperlipidemia, unspecified; I10 Essential (primary) hypertension; Z72.0 Tobacco use
CPT/HCPCS: 78452; 93017

== ENCOUNTER 2018-02-02 13:36 | Outpatient (RCR) | payer OTHER, MEDICARE ==
[2018-01-07 14:11] LABS: BASOPHILS % (AUTO) 0 % (0-10); EOSINOPHILS # (AUTO) 0.8 10^3/uL (0.0-0.3); EOSINOPHILS % (AUTO) 9 % (0-10); HEMATOCRIT 43 % (40-54); HEMOGLOBIN 15.1 G/DL (13.3-17.7); LYMPHOCYTES # (AUTO) 1.6 X 10^3 (1.0-4.0); LYMPHOCYTES % (AUTO) 16 % (12-44); MEAN CORPUSCULAR HEMOGLOBIN 30 PG (25-34); MEAN CORPUSCULAR HGB CONC 35 G/DL (32-36); MEAN CORPUSCULAR VOLUME 85 FL (80-99); MEAN PLATELET VOLUME 9.6 FL (7.4-10.4); MONOCYTES # (AUTO) 1.4 X 10^3 (0.0-1.0); MONOCYTES % (AUTO) 14 % (0-12); NEUTROPHILS # (AUTO) 5.8 X 10^3 (1.8-7.8); NEUTROPHILS % (AUTO) 61 % (42-75); PLATELET COUNT 222 10^3/uL (130-400); RED BLOOD COUNT 5.03 10^6/uL (4.35-5.85); RED CELL DISTRIBUTION WIDTH 14.9 % (10.0-14.5); WHITE BLOOD COUNT 9.5 10^3/uL (4.3-11.0)
[2018-01-07 14:33] LABS: ALANINE AMINOTRANSFERASE 11 U/L (0-55); ALBUMIN 3.8 GM/DL (3.2-4.5); ALKALINE PHOSPHATASE 69 U/L (40-136); BILIRUBIN,TOTAL 0.4 MG/DL (0.1-1.0); BUN/CREATININE RATIO 12; CALCIUM 8.6 MG/DL (8.5-10.1); CARBON DIOXIDE 24 MMOL/L (21-32); CHLORIDE 97 MMOL/L (98-107); CREATININE SERUM 0.68 MG/DL (0.60-1.30); GFR ESTIMATED > 60; GLUCOSE 76 MG/DL (70-105); POTASSIUM 4.5 MMOL/L (3.6-5.0); SODIUM 129 MMOL/L (135-145); TOTAL PROTEIN 6.7 GM/DL (6.4-8.2)
[~2018-02-02 13:36] MED LIST changes: -CATHETER FLUSH 10 ML SYR IV PRN; -REGADENOSON 0.4 MG/5 ML SYR (LEXISCAN) IV ONE
== END 2018-02-25 | disposition home or self-care (01) ==
LOC: ONC 13:36
PROVIDERS: ATTEND Internal Medicine Hematology & Oncology
DX: C34.12 Malignant neoplasm of upper lobe, left bronchus or lung (principal); C34.11 Malignant neoplasm of upper lobe, right bronchus or lung; F17.210 Nicotine dependence, cigarettes, uncomplicated; I25.10 Atherosclerotic heart disease of native coronary artery without angina pectoris; I11.0 Hypertensive heart disease with heart failure; I50.32 Chronic diastolic (congestive) heart failure; J44.9 Chronic obstructive pulmonary disease, unspecified; E11.9 Type 2 diabetes mellitus without complications; F43.10 Post-traumatic stress disorder, unspecified; E53.8 Deficiency of other specified B group vitamins; Z85.818 Personal history of malignant neoplasm of other sites of lip, oral cavity, and pharynx; Z85.830 Personal history of malignant neoplasm of bone; Z92.21 Personal history of antineoplastic chemotherapy; Z92.3 Personal history of irradiation; Z79.899 Other long term (current) drug therapy
CPT/HCPCS: 36415; 80053; 85025; 99213

== ENCOUNTER → 2018-11-05 | Outpatient (CLI) | payer OTHER ==
[~2018-11-05] MED LIST changes: +BARIUM SUSPENSION 2.1% (VANILLA SILQ) 450 ML PO ONE; +HOLD METFORMIN - RECEIVED CONTRAST 20 ML VIAL IV SCH; +IOHEXOL 350 MG/ML 100 ML (OMNIPAQUE 350) VIAL IV ONE
--- NOTE | 2018-11-05 14:26 | Diagnostic Imaging Report ---
PROCEDURE: CT chest, abdomen, and pelvis with contrast. TECHNIQUE: Multiple contiguous axial images were obtained through the chest, abdomen, and pelvis after the administration of intravenous contrast. Auto Exposure Controls were utilized during the CT exam to meet ALARA standards for radiation dose reduction. INDICATION: Lung cancer, complaining of back pain and abdominal pain. COMPARISON: Chest CT compared to 11/11/2017. The most recent relevant abdominopelvic imaging was nonenhanced transmission CT performed for the purpose of CT fusion PET of 10/08/2016. FINDINGS: Chest: Suprahilar medial left upper lobe regional airway thickening and mild focal groundglass opacities, unchanged. This did not form a measurable discrete soft tissue density lung mass and is unchanged. The residual subtle opacity may merely reflect scar from previously treated lesion. In the right upper lobe posteriorly abutting the fissure is an unchanged small nodule measuring 7 mm. Peripheral to that nodule is some airspace opacity, also unchanged. Few calcified benign subpleural granuloma, stable, chronic, and benign. No new lung mass or adverse development. There is no lymphadenopathy. No effusion or pneumothorax. No acute chest wall pathology. Abdomen and pelvis: An infrarenal abdominal aortic aneurysm shows extensive peripheral mural soft plaque. Aneurysm has increased in size today measuring 5.7 cm transverse x 5.5 cm AP. On the previous CT fusion PET, it measured 5.1 x 4.4 cm. Its length is 11 cm and it commences about 3.5 cm caudal to the renal arteries. 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 Atherosclerotic ectasia of the left common iliac with an unchanged diameter of 1.3 cm. No external or internal iliac aneurysm. Artifacts generated by right hip prosthesis limit lower pelvic evaluation. There are heavy calcified plaques in the distal external iliacs and common femorals. The proximal right common femoral and distal external lumen obscured by the orthopedic hardware. No vessel rupture. No findings of leak. No perianeurysmal inflammation. There are heavy plaques at the renal artery ostia as well as diffuse mixed soft and hard plaque throughout the right renal artery. No findings of end-organ ischemia or infarct. No identifiable solid or hollow visceral arterial aneurysm. Liver, gallbladder, bile ducts, spleen, adrenals, and pancreas are all unremarkable. Renal cysts are stable. No solid or enhancing renal mass. There is no bowel obstruction. There is no ascites, abscess, hematoma, or fluid collection. There is no abdominopelvic lymphadenopathy and no suspicious osseous lesion. There has been no findings to suggest development of abdominopelvic metastatic disease in this patient. A treated L3 vertebral body compression fracture with kyphoplasty cement showed no progressive stature loss. No acute bony abnormality. IMPRESSION: 1. Chest: Likely post-therapeutic changes to the medial suprahilar left upper lobe, stable. Subpleural nodule in the right upper lobe, unchanged. No thoracic adenopathy. Benign granulomatous disease. No new abnormality. 2. Abdomen and pelvis: Enlarging but unruptured infrarenal fusiform abdominal aortic aneurysm and right common iliac aneurysm with stable left common iliac ectasia. 3. No findings suggestive of abdominopelvic metastatic disease. Dictated by: Dictated on workstation # [id number]
== END ==
LOC: RAD 08:26
PROVIDERS: ATTEND Internal Medicine Hematology & Oncology
DX: C34.12 Malignant neoplasm of upper lobe, left bronchus or lung (principal); I71.4 Abdominal aortic aneurysm, without rupture; I72.3 Aneurysm of iliac artery
CPT/HCPCS: 71260; 74177

== ENCOUNTER 2018-11-09 13:53 | Outpatient (RCR) | payer OTHER ==
[2018-08-17 12:52] LABS: BASOPHILS % (AUTO) 0 % (0-10); EOSINOPHILS # (AUTO) 0.8 10^3/uL (0.0-0.3); EOSINOPHILS % (AUTO) 13 % (0-10); HEMATOCRIT 41 % (40-54); HEMOGLOBIN 13.7 G/DL (13.3-17.7); LYMPHOCYTES # (AUTO) 0.8 X 10^3 (1.0-4.0); LYMPHOCYTES % (AUTO) 13 % (12-44); MEAN CORPUSCULAR HEMOGLOBIN 29 PG (25-34); MEAN CORPUSCULAR HGB CONC 34 G/DL (32-36); MEAN CORPUSCULAR VOLUME 86 FL (80-99); MONOCYTES # (AUTO) 0.7 X 10^3 (0.0-1.0); MONOCYTES % (AUTO) 12 % (0-12); NEUTROPHILS # (AUTO) 3.9 X 10^3 (1.8-7.8); NEUTROPHILS % (AUTO) 62 % (42-75); PLATELET COUNT 178 10^3/uL (130-400); RED CELL DISTRIBUTION WIDTH 14.6 % (10.0-14.5); WHITE BLOOD COUNT 6.3 10^3/uL (4.3-11.0)
[2018-08-17 13:09] LABS: ALANINE AMINOTRANSFERASE 8 U/L (0-55); ALBUMIN 3.7 GM/DL (3.2-4.5); ALKALINE PHOSPHATASE 67 U/L (40-136); BILIRUBIN,TOTAL 0.5 MG/DL (0.1-1.0); BUN/CREATININE RATIO 13; CALCIUM 8.9 MG/DL (8.5-10.1); CARBON DIOXIDE 28 MMOL/L (21-32); CHLORIDE 98 MMOL/L (98-107); CREATININE SERUM 0.76 MG/DL (0.60-1.30); GFR ESTIMATED > 60; GLUCOSE 113 MG/DL (70-105); POTASSIUM 4.3 MMOL/L (3.6-5.0); SODIUM 133 MMOL/L (135-145); TOTAL PROTEIN 6.6 GM/DL (6.4-8.2)
[2018-11-05 08:17] LABS: HEMOGLOBIN 14.7 G/DL (13.3-17.7); WHITE BLOOD COUNT 8.1 10^3/uL (4.3-11.0)
[2018-11-05 08:18] LABS: BASOPHILS % (AUTO) 0 % (0-10); EOSINOPHILS # (AUTO) 0.1 10^3/uL (0.0-0.3); EOSINOPHILS % (AUTO) 2 % (0-10); HEMATOCRIT 43 % (40-54); LYMPHOCYTES # (AUTO) 1.4 X 10^3 (1.0-4.0); LYMPHOCYTES % (AUTO) 17 % (12-44); MEAN CORPUSCULAR HEMOGLOBIN 30 PG (25-34); MEAN CORPUSCULAR HGB CONC 34 G/DL (32-36); MEAN CORPUSCULAR VOLUME 88 FL (80-99); MEAN PLATELET VOLUME 10.5 FL (7.4-10.4); MONOCYTES # (AUTO) 1.3 X 10^3 (0.0-1.0); MONOCYTES % (AUTO) 16 % (0-12); NEUTROPHILS # (AUTO) 5.3 X 10^3 (1.8-7.8); NEUTROPHILS % (AUTO) 65 % (42-75); PLATELET COUNT 156 10^3/uL (130-400); RED CELL DISTRIBUTION WIDTH 14.9 % (10.0-14.5)
[2018-11-05 08:36] LABS: ALANINE AMINOTRANSFERASE 15 U/L (0-55); ALBUMIN 3.7 GM/DL (3.2-4.5); ALKALINE PHOSPHATASE 78 U/L (40-136); BILIRUBIN,TOTAL 0.5 MG/DL (0.1-1.0); BUN/CREATININE RATIO 13; CALCIUM 8.9 MG/DL (8.5-10.1); CARBON DIOXIDE 28 MMOL/L (21-32); CHLORIDE 92 MMOL/L (98-107); CREATININE SERUM 0.71 MG/DL (0.60-1.30); GFR ESTIMATED > 60; GLUCOSE 107 MG/DL (70-105); POTASSIUM 4.6 MMOL/L (3.6-5.0); SODIUM 127 MMOL/L (135-145); TOTAL PROTEIN 6.5 GM/DL (6.4-8.2)
[~2018-11-09 13:53] MED LIST changes: -BARIUM SUSPENSION 2.1% (VANILLA SILQ) 450 ML PO ONE; -HOLD METFORMIN - RECEIVED CONTRAST 20 ML VIAL IV SCH; -IOHEXOL 350 MG/ML 100 ML (OMNIPAQUE 350) VIAL IV ONE
== END 2018-11-15 | disposition home or self-care (01) ==
LOC: ONC 13:53
PROVIDERS: ATTEND Internal Medicine Hematology & Oncology
DX: C34.12 Malignant neoplasm of upper lobe, left bronchus or lung (principal); C34.11 Malignant neoplasm of upper lobe, right bronchus or lung; F17.210 Nicotine dependence, cigarettes, uncomplicated; I25.10 Atherosclerotic heart disease of native coronary artery without angina pectoris; I11.0 Hypertensive heart disease with heart failure; I50.32 Chronic diastolic (congestive) heart failure; J44.9 Chronic obstructive pulmonary disease, unspecified; E11.9 Type 2 diabetes mellitus without complications; F43.10 Post-traumatic stress disorder, unspecified; E53.8 Deficiency of other specified B group vitamins; Z85.818 Personal history of malignant neoplasm of other sites of lip, oral cavity, and pharynx; Z85.830 Personal history of malignant neoplasm of bone; Z92.21 Personal history of antineoplastic chemotherapy; Z92.3 Personal history of irradiation; Z79.899 Other long term (current) drug therapy; M43.8X6 Other specified deforming dorsopathies, lumbar region; I71.4 Abdominal aortic aneurysm, without rupture; I70.0 Atherosclerosis of aorta; Z85.89 Personal history of malignant neoplasm of other organs and systems
CPT/HCPCS: 36415; 80053; 85025; 99213

== ENCOUNTER 2019-01-07 14:30 | Outpatient (CLI) | payer OTHER ==
[~2019-01-07] VITALS: Ht 170.2 cm; Wt 68.0 kg
== END 2019-01-07 14:45 ==
LOC: PREOP 14:30
PROVIDERS: ATTEND Surgery
DX: Z01.818 Encounter for other preprocedural examination (principal)

== ENCOUNTER 2019-01-12 08:43 | Day surgery (SDC) | payer OTHER ==
[~2019-01-12] VITALS: Ht 170.2 cm; Wt 68.0 kg
--- OUTSIDE RECORDS SUMMARY | 2019-01-12 08:47 | XMS REPORT | Clinical Summary ---
Author Author [facility] Organization [facility] Address Unknown Phone Unavailable Care Team Providers Care Manager Quality Improvement Name Role Phone PCP Unavailable Source Comments Some departments are not documenting in the electronic medical record. If you d o not see the information that you expected, contact Release of Information in [facility] Information Management department at [phone] for further assistan ce in locating additional records.[facility] Allergies Comments Active Allergy Reactions Severity Noted Date Allergy recorded in SMS: Codeine~Reactions: NAUSEA Codeine High 10/11/2006 Medications Not on file Active Problems Not on file Social History Date Tobacco Use Types Packs/Day Years Used Never Assessed Sex Assigned at Date Recorded Not on file Industry Job Start Date Occupation Not on file Not on file Not on file Travel End Travel History Travel Start No recent travel history available. Last Filed Vital Signs Not on file Plan of Treatment Health Maintenance Due Date Last Done Comments HEPATITIS C SCREENING 1945 PHYSICAL (COMPREHENSIVE) 1953 EXAM DTAP/TDAP VACCINES (1 - 02/13/1964 Tdap) COLORECTAL CANCER 02/13/1996 SCREENING SHINGLES RECOMBINANT 02/13/1996 VACCINE (1 of 2) PNEUMONIA (PCV13/PPSV23) 2011 VACCINES (1 of 2 - PCV13) INFLUENZA VACCINE 04/27/2019 Results Not on filefrom Last 3 Months
--- OUTSIDE RECORDS SUMMARY | 2019-01-12 08:47 | XMS REPORT | Encounter Summary ---
Author Author [facility] Organization [facility] Address Unknown Phone Unavailable Care Team Providers Care Community Development Technician Name Role Phone PCP Unavailable Encounter Details Care Team Description Date Type Department 07/28/2006 Orders Only The [facility] [address] [place] [address] Social History Date Tobacco Use Types Packs/Day Years Used Never Assessed Sex Assigned at Date Recorded Not on file Industry Job Start Date Occupation Not on file Not on file Not on file Travel End Travel History Travel Start No recent travel history available. documented as of this encounter Progress Notes * Interface, Meter Tester Primary - 07/08/2007 9:21 PM WHEEL OF FORTUNE DEALER MR #/BILLING ID #: [id number] ROOM #: CIC-02 CERAMICS TEST ENGINEER: Oliver Ocampo M.D./Dmitry Villarreal M.D. - Mentally Retarded Teacher DATE OF HISTORY AND PHYSICAL: October 10, 2006 CHIEF COMPLAINT: Chest pain HISTORY OF PRESENT ILLNESS: Mr. Peck is a 61 year old male who was transferred from [facility] for acute management of S T elevation myocardial infarction. The patient complained of having chest pain which started this morning. H e described this chest pain as a pressure, more in the lower part of the c hest and upper part of abdomen. He felt his pain started radiating up to his neck and then to both shoulders. He drove himself to [facility]. He also had associated significant diaphoresis and nausea associ ated with this pain. At the [facility], his initial EKG showed signif icant ST elevation in leads II, III and aVF. The patient was given thromb olytics and transferred to for further management of his chest pain. P ost-thrombolytics, his chest pain got somewhat relieved, but not completel y. On presentation to , the patient was still complaining of chest pain 3/1 0 in severity. He also complained of feeling nauseated and some dizziness associated with the chest pain. The patient's EKG was repeated on his pr esentation to [facility], which still showed persistent ST elevation. The patient was immediately taken to the labor employment associate for further management of his ST el evation AK. PAST MEDICAL HISTORY: 1. Diabetes type II. 2. Hypertension. 3. History of chondrosarcoma of the legs. 4. History of esophageal reflux disease. ALLERGIES: Codeine. SOCIAL HISTORY: Patient is . He is a [place] [employer]. He smokes 1 pack/day for over 40 years. He denied any IV drug use. He occasionally drinks alcohol, and sometimes cook his food in alcohol. FAMILY HISTORY: No premature coronary artery disease in the family, but h is uncles due to heart attack at age 70. PHYSICAL EXAM: Patient is alert and oriented and looks very anxious. His pupils are equally round and reactive light. Extra ocular muscles are in tact. Neck is supple. No lymphadenopathy. His JVD is 10 cm/H20. His ch est was clear to auscultation bilaterally. Cardiovascular exam: normal S 1, S2 without any murmur or rub. He was obese. No hepatosplenomegaly. Genevieve anderson has a prior surgical scar in the lower abdomen for some cyst removal. T here is no peripheral edema. There is pigmented patches on both is legs w hich is chronic as per patient. His ARCHITECTURAL INSPECTOR exam was non-focal without any mo tor or sensory deficits. His EKG showed normal sinus rhythm with ST elevation in leads II, III and AVF. ASSESSMENT/PLAN: This is a 61 year old male with ST elevation M I. We will take the patient immediately to the labor employment associate, as per ST elevation AK protocol. The patient was already given aspirin, subcu Lovenox, as we ll as thrombolytics at [facility] prior to transfer. Patient will be admitted to Cardiac ICU service post-angioplasty. We will continue him on lisinopril and we will start him on beta brennan a s a post myocardial infarction treatment, which will also help his blood p ressure. We will also check his lipid profile and start him on a statin a fter his PCI. We will also discuss with the patient regarding smoking cessation, and nia snyder to address this during his hospitalization. Dictated by Dmitry Villarreal M.D. - Mentally Retarded Teacher for Oliver Ocampo M.D. JADON/RACQUEL:gilma D:10-10-06 T:10-11-06 Signed by Oliver Ocampo MD on 10/15/2006 at 6:42 AM L OF FORTUNE DEALER documented in this encounter Procedure Notes * Lcr Conversion, Provider - 10/11/2006 7:55 AM CDT Associated Order(s): ECHOCARDIOGRAM PROCEDURE ECHO REPORT Billing ID: [id number] MAC ID#: [id number] Patient Room#: [facility] 2 Study done at patient bedside. Procedure Ordered By: Oliver Ocampo M.D. Interpreting MD: Oliver Saunders D.O. Location of Interp: [facility] Dryer Operator: MS Indications For Test: S/P PCI (RCA x 2) Blood Pressure: 119/80 CARDIAC DIMENSIONS (Normal Range) LVID(D) 4.5 cm (3.5 - 5.6) IVS 1.1 cm (0.6 - 1.1) Aortic Root 3.5 cm (2.0 - 3.7) LVID(S) 2.6 cm (1.5 - 3.5) LVPW 1.0 cm (0.6 - 1.1) LA 2.5 cm (1.9 - 4.0) RESTING 2D ECHO Left Ventricular Ejection Fraction: 60-65% Normal Left Ventricular Wall Thickness Posterobasal Hypokinesis Normal Left Ventricular Size Normal Left Atrial Size Normal Right Atrial Size Normal RV Size And Systolic Function Normal Mitral Valve Normal Tricuspid Valve Prominent Epicardial Fat Pad No Evidence Of Significant Pericardial Effusion Inferior Vena Cava Not Well Seen DOPPLER (Spectral and Color Flow) No Doppler Evidenced Of Coarctation No Color Flow Or Doppler Evidence Of Hemodynamically Significant Valve Dys function Unable To Estimate A Pulmonary Artery Pressure From This Study Signed by Oliver Saunders DO on 10/13/2006 at 8:11 AM * Linda Conversion, Provider - 10/10/2006 8:08 AM CDT Associated Order(s): CARDIAC CATH REPORT CATH REPORT NIGEL MR #/Billing ID #: [id number] DATE: 10/10/06 CERAMICS TEST ENGINEER: Rasta Bush M.D. HISTORY/INDICATIONS: Mr. Peck is a 61-year-old gentleman with mult iple cardiac risk factors who presented to the [facility] er with evidence of acute inferior myocardial infarction. He was given th rombolytic therapy and subcu Lovenox therapy. He appeared to fail thromb olytic therapy without reperfusion and was ambulated to the [facility] to undergo emergent left heart catheterization and percuta neous coronary intervention. PROCEDURES PERFORMED: 1. Left heart cardiac catheterization 2. Selective coronary angiography 3. Single plane left ventriculography 4. Percutaneous coronary intervention of the right coronary artery with p lacement of two bare metal stents. DESCRIPTION OF PROCEDURE: The patient was informed and consented of the risks, benefits, and alterna tives. Patient verbalized understanding and wished to proceed. Access was obtained in the right femoral artery with placement of a 6 Fren ch sheath. Access was obtained in the right femoral vein with placement o f a 4 [place] Lucian sheath. JL-4, JR-4, and pigtail catheters were used for the diagnostic portion of the procedure. A total of 180 cc of Visipaque contrast was used for the diagnostic interv ention portion of the procedure. At the conclusion of the patient's case, the patient's chest pain had been improving but was still residually present. The patient's sheath was sut ured into place and he was transported to the telemetry unit in stable con dition. The patient had been given aspirin and beta brennan therapy at the [facility]. The patient was given an additional 40 mg of IV Lovenox therapy for anticoagulation. At the conclusion of the case, the patient was transported to the CCU in s table but guarded position. FINDINGS: LEFT MAIN CORONARY ARTERY: The left main had minimal plaquing within it and then trifurcated into a ramus intermedius artery, left circumflex artery, a nd left anterior descending coronary artery. There was minimal plaq uing within the left main. LEFT ANTERIOR DESCENDING CORONARY ARTERY: The left anterior descend ing coronary artery gave rise to a high diagonal branch and had mild plaquing within it and then had diffuse mild plaquing in the mid portion where there was 50% steno sis at the takeoff of a small diagonal branch. The LAD was a type II vessel that reached the apex. RAMUS INTERMEDIUS: The ramus intermedius artery had a 60-70% stenosis in its proximal portion. The ramus subtends a very small territory and was a small ca liber vessel of approximately 1 to 1.5 mm. LEFT CIRCUMFLEX ARTERY: The left circumflex was nondominant and gave rise to two major obtuse marginals. In the proximal portion of the circumflex art deepika, there was a 70% stenosis within the vessel. RIGHT CORONARY ARTERY: The right coronary artery was technically dom inant and gave rise to a small to moderate RPD branch and moderate RPLV branch. The proximal portion had a 40-50% stenosis, the mid portion an 80% stenosis, while followed by diffuse 60% stenosis and a 95% stenosis with SOSA grade 2 flow and evidence of residual thr ombus. The PDA had a 50-60% stenosis within it. Left Ventriculography: Left ventriculography was performed in the standa rd DING view. The overall ejection fraction was approximately 40%. There was severe hypokinesis of the inferior basal, infradiaphragmatic segment. There was no significant mitral regurgitation noted. LV cavity size was normal. There was eviden ce of mild left ventricular hypertrophy. Details of the Interventional Portion of the Procedure: A JR-4 6 [place] Lucian guide gave adequate seating and support. A Luge wire was able to traverse the lesion with minimal difficulty. Pre-dilation was then performed util izing a 2.5 x 20 mm Voyager balloon. Subsequently a 3.[address] x [address] a[address] distally and deployed at 14 atmospheres. This was overlapped with a 3.5 x 18 mm Vision stent that was deployed in an overlapping fashion more proximally. The entire stented region was then post dilated using a 3.75 x 23 mm Powersail balloon. Three sequential inflations were performe d throughout stented area, up to 14 atmospheres. There was no evidence of edge dissection, plaque prolapse, or perforation. SOSA grade 2 flow had been maintained. The guide wire was then removed confirming the above res ults in the orthogonal views. Hemodynamics: LV pressure of 130/20, no aortic valve gradient on pull ba ck. IMPRESSIONS: 1. Moderate to severe proximal left circumflex stenosis. 2. Moderate to severe proximal ramus intermedius artery stenosis (very sm all vessel that subtends a small territory). 3. Moderate mid LAD stenosis 4. Subtotal distal RCA with diffuse high-grade mid disease as described a chuy. 5. Culprit for the patient's acute inferior ST elevation myocardial infar ction. 6. Successful PCI of the RCA a. Status post placement of two bare metal stents, a 3.0 x 30 mm Zet a distally overlapping with a 3.5 x 18 mm Vision stent (the entire stented region was post dil ated 3.75 mm). 7. Moderate LV dysfunction with severe inferior hypokinesis. 8. Elevated left ventricular end-diastolic pressure. RECOMMENDATIONS: 1. CCU treatment and care. 2. Discontinuation of sheath in approximately 12 hours secondary to throm bolytics. 3. Post AK and cardiomyopathy Rx as indicated. 4. Aggressive risk reduction. 5. Non-invasive evaluation of other lesions, including proximal left circ umflex stenosis. MICHELE/lady D: 10/10 T: 10/11 Signed by Rasta Bush MD on 10/20/2006 at 10:36 AM documented in this encounter Plan of Treatment Not on filedocumented as of this encounter Procedures Comments Procedure Name Priority Date/Time Associated Diagnosis GENERAL CHEMISTRY 10/13/2006 11:52 AM CDT GENERAL CHEMISTRY 10/13/2006 8:03 AM CDT GENERAL CHEMISTRY 10/13/2006 6:14 AM CDT GENERAL CHEMISTRY 10/13/2006 5:58 AM CDT BLOOD COUNTS 10/13/2006 5:58 AM CDT GENERAL CHEMISTRY 10/12/2006 9:58 PM CDT GENERAL CHEMISTRY 10/12/2006 6:12 PM CDT GENERAL CHEMISTRY 10/12/2006 11:45 AM CDT URINALYSIS 10/12/2006 8:52 AM CDT MICRO RESULTS 10/12/2006 8:52 AM CDT GENERAL CHEMISTRY 10/12/2006 7:33 AM CDT ENZYMES 10/12/2006 4:00 AM CDT COAGULATION 10/12/2006 4:00 AM CDT GENERAL CHEMISTRY 10/12/2006 4:00 AM CDT BLOOD COUNTS 10/12/2006 4:00 AM CDT GENERAL CHEMISTRY 10/11/2006 8:56 PM CDT GENERAL CHEMISTRY 10/11/2006 5:02 PM CDT CARDIAC MARKERS 10/11/2006 3:10 PM CDT GENERAL CHEMISTRY 10/11/2006 12:00 PM CDT GENERAL CHEMISTRY 10/11/2006 8:17 AM CDT ECHOCARDIOGRAM PROCEDURE 10/11/2006 7:55 AM CDT CARDIAC MARKERS 10/11/2006 6:50 AM CDT LIPIDS 10/11/2006 3:35 AM CDT COAGULATION 10/11/2006 3:35 AM CDT GENERAL CHEMISTRY 10/11/2006 3:35 AM CDT BLOOD COUNTS 10/11/2006 3:35 AM CDT CARDIAC MARKERS 10/11/2006 12:45 AM CDT ENZYMES 10/11/2006 12:45 AM CDT GENERAL CHEMISTRY 10/11/2006 12:45 AM CDT BLOOD COUNTS 10/11/2006 12:45 AM CDT GENERAL CHEMISTRY 10/10/2006 9:49 PM CDT GENERAL CHEMISTRY 10/10/2006 6:57 PM CDT CARDIAC CATH REPORT 10/10/2006 8:08 AM CDT documented in this encounter Results * GENERAL CHEMISTRY (10/13/2006 11:52 AM CDT) Glucose, POC 124 (H) 70 - 110 MG/DL [facility] CONVERSION Specimen Performing Organization Address [facility] Phone Number [facility] CONVERSION * GENERAL CHEMISTRY (10/13/2006 8:03 AM CDT) Glucose, POC 114 (H) 70 - 110 MG/DL [facility] CONVERSION Specimen Performing Organization Address [facility] Phone Number [facility] CONVERSION * GENERAL CHEMISTRY (10/13/2006 6:14 AM CDT) Glucose, POC 110 70 - 110 MG/DL [facility] CONVERSION Specimen Performing Organization Address [facility] Phone Number [facility] CONVERSION * BLOOD COUNTS (10/13/2006 5:58 AM CDT) White Blood 16.30 (H) 4.5 - 11.0 K/UL [facility] Cells CONVERSION RBC 4.90 4.4 - 5.5 M/UL [facility] CONVERSION Hemoglobin 14.5 13.5 - 16.5 GM/DL [facility] CONVERSION Hematocrit 43.3 40 - 50 % [facility] CONVERSION MCV 89.0 80 - 100 FL [facility] CONVERSION MCH 30.0 26 - 34 PG [facility] CONVERSION MCHC 34.0 32.0 - 36.0 G/DL [facility] CONVERSION RDW 14.0 11 - 15 % [facility] CONVERSION Platelet Count 289 150 - 400 K/UL [facility] CONVERSION MPV 9.0 7 - 11 FL [facility] CONVERSION Specimen Performing Organization Address [facility] Phone Number [facility] * GENERAL CHEMISTRY (10/13/2006 5:58 AM CDT) Sodium 133 (L) 137 - 147 MMOL/L [facility] CONVERSION Potassium 3.4 (L) 3.5 - 5.1 MMOL/L [facility] CONVERSION Chloride 98 98 - 110 MMOL/L [facility] CONVERSION CO2 26 21 - 30 MMOL/L [facility] CONVERSION Anion Gap 9 8 - 12 [facility] CONVERSION Glucose 121 (H) 70 - 110 MG/DL [facility] CONVERSION Blood Urea 20 8 - 20 MG/DL [facility] Nitrogen CONVERSION Creatinine 1.0 0.5 - 1.2 MG/DL [facility] CONVERSION Calcium 8.6 (L) 9.0 - 11.0 MG/DL [facility] CONVERSION Specimen Performing Organization Address [facility] Phone Number [facility] CONVERSION * GENERAL CHEMISTRY (10/12/2006 9:58 PM CDT) Glucose, POC 120 (H) 70 - 110 MG/DL [facility] CONVERSION Specimen Performing Organization Address [facility] Phone Number [facility] CONVERSION * GENERAL CHEMISTRY (10/12/2006 6:12 PM CDT) Glucose, POC 154 (H) 70 - 110 MG/DL [facility] CONVERSION Specimen Performing Organization Address [facility] Phone Number [facility] CONVERSION * GENERAL CHEMISTRY (10/12/2006 11:45 AM CDT) Glucose, POC 126 (H) 70 - 110 MG/DL [facility] CONVERSION Specimen Performing Organization Address City/State/Zipcode Phone Number [facility] CONVERSION * MICRO RESULTS (10/12/2006 8:52 AM CDT) Battery Name URINE CULTURE [facility] CONVERSION Specimen URINE [facility] Description CONVERSION Special NONE [facility] Requests CONVERSION Culture NO GROWTH [facility] CONVERSION Report Status FINAL 10/13/2006 [facility] CONVERSION Specimen Performing Organization Address [facility] Phone Number [facility]VERSION * URINALYSIS (10/12/2006 8:52 AM CDT) Color,UA YELLOW [facility] CONVERSION Turbidity,UA CLEAR CLEAR [facility] CONVERSION Specific 1.007 1.003 - 1.035 [facility] [place]-Urine CONVERSION pH,UA 6.5 4.6 - 8.0 [facility] CONVERSION Protein,UA NEG NEG [facility] CONVERSION Glucose,UA NEG NEG [facility] CONVERSION Ketones,UA NEG NEG [facility] CONVERSION Bilirubin,UA NEG NEG [facility] CONVERSION Blood,UA NEG NEG [facility] CONVERSION Urobilinogen,UA NORMAL NORM [facility] CONVERSION Nitrite,UA NEG NEG [facility] CONVERSION Leukocytes,UA NEG NEG [facility] CONVERSION WBCs,UA 0-2 0 - 2 /HPF [facility] CONVERSION RBCs,UA 2-10 0 - 2 /HPF [facility] CONVERSION Comment,UA Not Reported [facility] CONVERSION Specimen Performing Organization Address [facility] Phone Number [facility] CONVERSION * GENERAL CHEMISTRY (10/12/2006 7:33 AM CDT) Glucose, POC 152 (H) 70 - 110 MG/DL [facility] CONVERSION Specimen Performing Organization Address City/State/Zipcode Phone Number [facility] CONVERSION * BLOOD COUNTS (10/12/2006 4:00 AM CDT) Pathologist [facility] White Blood 24.00 (H) 4.5 - 11.0 K/UL [facility] Cells CONVERSION RBC 4.60 4.4 - 5.5 M/UL [facility] CONVERSION Hemoglobin 13.9 13.5 - 16.5 GM/DL [facility] CONVERSION Hematocrit 40.3 40 - 50 % [facility] CONVERSION MCV 89.0 80 - 100 FL [facility] CONVERSION MCH 30.0 26 - 34 PG [facility] CONVERSION MCHC 34.0 32.0 - 36.0 G/DL [facility] CONVERSION RDW 14.0 11 - 15 % [facility] CONVERSION Platelet Count 298 150 - 400 K/UL [facility] CONVERSION MPV 9.0 7 - 11 FL [facility] CONVERSION Neutrophils 84 (H) 41 - 77 % [facility] CONVERSION Absolute 20.22 (H) 1.8 - 7.0 K/UL [facility] Neutrophil CONVERSION Count Lymphocytes 8 (L) 24 - 44 % [facility] CONVERSION Monocytes 7 4 - 12 % [facility] CONVERSION Eosinophils 0 0 - 5 % [facility] CONVERSION Basophils 1 0 - 2 % [facility] CONVERSION Absolute Lymph 1.95 1.0 - 4.8 K/UL [facility] Count CONVERSION Absolute 1.60 (H) 0 - 0.80 K/UL [facility] Monocyte Count CONVERSION Absolute 0.01 0 - 0.45 K/UL [facility] Eosinophil CONVERSION Count Absolute 0.27 (H) 0 - 0.20 K/UL [facility] Basophil Count CONVERSION Specimen Performing Organization Address [facility] Phone Number [facility] CONVERSION * GENERAL CHEMISTRY (10/12/2006 4:00 AM CDT) Sodium 135 (L) 137 - 147 MMOL/L [facility] CONVERSION Potassium 4.0 3.5 - 5.1 MMOL/L [facility] CONVERSION Chloride 102 98 - 110 MMOL/L [facility] CONVERSION Glucose 192 (H) 70 - 110 MG/DL [facility] CONVERSION Blood Urea 18 8 - 20 MG/DL [facility] Nitrogen CONVERSION Creatinine 1.0 0.5 - 1.2 MG/DL [facility] CONVERSION Calcium 8.4 (L) 9.0 - 11.0 MG/DL [facility] CONVERSION Total Protein 6.0 6.0 - 8.0 G/DL [facility] CONVERSION Total Bilirubin 0.5 0.3 - 1.2 MG/DL [facility] CONVERSION Albumin 3.2 (L) 3.5 - 5.0 G/DL [facility] CONVERSION CO2 28 21 - 30 MMOL/L [facility] CONVERSION Anion Gap 5 (L) 8 - 12 [facility] CONVERSION Hemoglobin A1C 6.0 5.0 - 6.5 % [facility] CONVERSION Hemoglobin A1C For non-diabetic patients, the 5.0 - 6.5 % [facility] normal reference range is CONVERSION 5.0-6.5%. For patients with Type I or Type II Diabetes Mellitus, the ADA recommends maintaining the A1c level <7.3%.However, at levels below 5.8%, the risk of hypoglycemia increases.Patients with an A1c of >9.8% are considered to be extremely hyperglycemic. Please note the reference range is higher by 0.3%.This is due to the new world standardizing organizations making diabetic monitoring the same internationally. Magnesium 2.3 1.6 - 2.6 MG/DL [facility] CONVERSION Specimen Performing Organization Address City/[facility] Phone Number [facility] CONVERSION * COAGULATION (10/12/2006 4:00 AM CDT) Protime 11.1 10.6 - 12.6 SEC [facility] CONVERSION INR 0.9 [facility] CONVERSION APTT 20.9 (L) 24.0 - 34.0 SEC [facility] CONVERSION Specimen Performing Organization Address [facility] Phone Number [facility] CONVERSION * ENZYMES (10/12/2006 4:00 AM CDT) Alk Phosphatase 51 25 - 110 U/L [facility] CONVERSION AST (SGOT) 60 (H) 7 - 40 U/L [facility] CONVERSION ALT (SGPT) 48 7 - 56 U/L [facility] CONVERSION Specimen Performing Organization Address [facility] Phone Number [facility] CONVERSION * GENERAL CHEMISTRY (10/11/2006 8:56 PM CDT) Glucose, POC 183 (H) 70 - 110 MG/DL [facility] CONVERSION Specimen Performing Organization Address [facility] Phone Number [facility] CONVERSION * GENERAL CHEMISTRY (10/11/2006 5:02 PM CDT) Glucose, POC 153 (H) 70 - 110 MG/DL [facility] CONVERSION Specimen Performing Organization Address [facility] Phone Number [facility] CONVERSION * CARDIAC MARKERS (10/11/2006 3:10 PM CDT) CKMB 68.4 (H) 0.6 - 6.3 NG/ML [facility] CONVERSION Myoglobin-Serum 91 0 - 105 NG/ML [facility] -Chemistry CONVERSION Troponin-I 7.38 (H) 0.0 - 0.05 NG/ML [facility] CONVERSION Specimen Performing Organization Address [facility] Phone Number [facility] CONVERSION * GENERAL CHEMISTRY (10/11/2006 12:00 PM CDT) Glucose, POC 211 (H) 70 - 110 MG/DL [facility] CONVERSION Specimen Performing Organization Address [facility] Phone Number [facility] CONVERSION * GENERAL CHEMISTRY (10/11/2006 8:17 AM CDT) Glucose, POC 146 (H) 70 - 110 MG/DL [facility] CONVERSION Specimen Performing Organization Address City/State/Zipcode Phone Number [facility] CONVERSION * ECHOCARDIOGRAM PROCEDURE (10/11/2006 7:55 AM CDT) Transcriptions 10/11/2006 7:55 AM CDT ECHO REPORT Billing ID: [id number] [facility] ID#: [id number] Patient Room#: [facility] 2 Study done at patient bedside. Procedure Ordered By: Oilver Ocampo M.D. Interpreting MD: Oliver Saunders D.O. Location of Interp: [facility] Dryer Operator: MS Indications For Test: S/P PCI (RCA x 2) Blood Pressure: 119/80 CARDIAC DIMENSIONS (Normal Range) LVID(D) 4.5 cm (3.5 - 5.6) IVS 1.1 cm (0.6 - 1.1) Aortic Root 3.5 cm (2.0 - 3.7) LVID(S) 2.6 cm (1.5 - 3.5) LVPW 1.0 cm (0.6 - 1.1) LA 2.5 cm (1.9 - 4.0) RESTING 2D ECHO Left Ventricular Ejection Fraction: 60-65% Normal Left Ventricular Wall Thickness Posterobasal Hypokinesis Normal Left Ventricular Size Normal Left Atrial Size Normal Right Atrial Size Normal RV Size And Systolic Function Normal Mitral Valve Normal Tricuspid Valve Prominent Epicardial Fat Pad No Evidence Of Significant Pericardial Effusion Inferior Vena Cava Not Well Seen DOPPLER (Spectral and Color Flow) No Doppler Evidenced Of Coarctation No Color Flow Or Doppler Evidence Of Hemodynamically Significant Valve Dys function Unable To Estimate A Pulmonary Artery Pressure From This Study Signed by Oliver Saunders DO on 10/13/2006 at 8:11 AM * CARDIAC MARKERS (10/11/2006 6:50 AM CDT) CKMB 97.8 (H) 0.6 - 6.3 NG/ML [facility] CONVERSION Myoglobin-Serum 121 (H) 0 - 105 NG/ML [facility] -Chemistry CONVERSION Troponin-I 9.61 (H) 0.0 - 0.05 NG/ML [facility] CONVERSION Specimen Performing Organization Address [facility] Phone Number [facility] CONVERSION * BLOOD COUNTS (10/11/2006 3:35 AM CDT) White Blood 15.60 (H) 4.5 - 11.0 K/UL [facility] Cells CONVERSION RBC 5.20 4.4 - 5.5 M/UL [facility] CONVERSION Hemoglobin 15.4 13.5 - 16.5 GM/DL [facility] CONVERSION Hematocrit 46.0 40 - 50 % [facility] CONVERSION MCV 89.0 80 - 100 FL [facility] CONVERSION MCH 30.0 26 - 34 PG [facility] CONVERSION MCHC 34.0 32.0 - 36.0 G/DL [facility] CONVERSION RDW 13.6 11 - 15 % [facility] CONVERSION Platelet Count 301 150 - 400 K/UL [facility] CONVERSION MPV 9.0 7 - 11 FL [facility] CONVERSION Neutrophils 92 (H) 41 - 77 % [facility] CONVERSION Absolute 14.27 (H) 1.8 - 7.0 K/UL [facility] Neutrophil CONVERSION Count Lymphocytes 7 (L) 24 - 44 % [facility] CONVERSION Monocytes 0 (L) 4 - 12 % [facility] CONVERSION Eosinophils 0 0 - 5 % [facility] CONVERSION Basophils 1 0 - 2 % [facility] CONVERSION Absolute Lymph 1.06 1.0 - 4.8 K/UL [facility] Count CONVERSION Absolute 0.07 0 - 0.80 K/UL [facility] Monocyte Count CONVERSION Absolute 0.01 0 - 0.45 K/UL [facility] Eosinophil CONVERSION Count Absolute 0.15 0 - 0.20 K/UL [facility] Basophil Count CONVERSION Specimen Performing Organization Address [facility] Phone [facility] * GENERAL CHEMISTRY (10/11/2006 3:35 AM CDT) Sodium 132 (L) 137 - 147 MMOL/L [facility] CONVERSION Potassium 4.1 3.5 - 5.1 MMOL/L [facility] CONVERSION Chloride 102 98 - 110 MMOL/L [facility] CONVERSION CO2 24 21 - 30 MMOL/L [facility] CONVERSION Anion Gap 6 (L) 8 - 12 [facility] CONVERSION Glucose 165 (H) 70 - 110 MG/DL [facility] CONVERSION Blood Urea 10 8 - 20 MG/DL [facility] Nitrogen CONVERSION Creatinine 1.0 0.5 - 1.2 MG/DL [facility] CONVERSION Calcium 8.5 (L) 9.0 - 11.0 MG/DL [facility] CONVERSION Hemoglobin A1C 6.1 5.0 - 6.5 % [facility] CONVERSION Hemoglobin A1C For non-diabetic patients, the 5.0 - 6.5 % [facility] normal reference range is CONVERSION 5.0-6.5%. For patients with Type I or Type II Diabetes Mellitus, the ADA recommends maintaining the A1c level <7.3%.However, at levels below 5.8%, the risk of hypoglycemia increases.Patients with an A1c of >9.8% are considered to be extremely hyperglycemic. Please note the reference range is higher by 0.3%.This is due to the new world standardizing organizations making diabetic monitoring the same internationally. Specimen Performing Organization Address [facility] Phone Number [facility] * COAGULATION (10/11/2006 3:35 AM CDT) Protime 11.6 10.6 - 12.6 SEC [facility] CONVERSION INR 1.0 [facility] CONVERSION APTT 24.0 24.0 - 34.0 SEC [facility] CONVERSION Specimen Performing Organization Address [facility] Phone Number [facility] * LIPIDS (10/11/2006 3:35 AM CDT) Cholesterol 146 <200 MG/DL [facility] CONVERSION Triglycerides 68 <150 MG/DL [facility] CONVERSION HDL 33 (L) >40 MG/DL [facility] CONVERSION LDL 116 (H) <100 MG/DL [facility] CONVERSION VLDL 14 MG/DL [facility] CONVERSION Specimen Performing Organization Address [facility] Phone Number [facility] CONVERSION * BLOOD COUNTS (10/11/2006 12:45 AM CDT) White Blood 14.80 (H) 4.5 - 11.0 K/UL [facility] Cells CONVERSION RBC 5.20 4.4 - 5.5 M/UL [facility] CONVERSION Hemoglobin 15.7 13.5 - 16.5 GM/DL [facility] CONVERSION Hematocrit 46.3 40 - 50 % [facility] CONVERSION MCV 88.0 80 - 100 FL [facility] CONVERSION MCH 30.0 26 - 34 PG [facility] CONVERSION MCHC 34.0 32.0 - 36.0 G/DL [facility] CONVERSION RDW 13.4 11 - 15 % [facility] CONVERSION Platelet Count 318 150 - 400 K/UL [facility] CONVERSION MPV 8.0 7 - 11 FL [facility] CONVERSION Neutrophils 93 (H) 41 - 77 % [facility] CONVERSION Absolute 13.65 (H) 1.8 - 7.0 K/UL [facility] Neutrophil CONVERSION Count Lymphocytes 6 (L) 24 - 44 % [facility] CONVERSION Monocytes 0 (L) 4 - 12 % [facility] CONVERSION Eosinophils 0 0 - 5 % [facility] CONVERSION Basophils 1 0 - 2 % [facility] CONVERSION Absolute Lymph 0.91 (L) 1.0 - 4.8 K/UL [facility] Count CONVERSION Absolute 0.04 0 - 0.80 K/UL [facility] Monocyte Count CONVERSION Absolute 0.01 0 - 0.45 K/UL [facility] Eosinophil CONVERSION Count Absolute 0.18 0 - 0.20 K/UL [facility] Basophil Count CONVERSION Specimen Performing Organization Address [facility] Phone Number [facility]VERSION * GENERAL CHEMISTRY (10/11/2006 12:45 AM CDT) Sodium 131 (L) 137 - 147 MMOL/L [facility] CONVERSION Potassium 4.4 3.5 - 5.1 MMOL/L [facility] CONVERSION Chloride 102 98 - 110 MMOL/L [facility] CONVERSION Glucose 162 (H) 70 - 110 MG/DL [facility] CONVERSION Blood Urea 10 8 - 20 MG/DL [facility] Nitrogen CONVERSION Creatinine 1.0 0.5 - 1.2 MG/DL [facility] CONVERSION Calcium 8.3 (L) 9.0 - 11.0 MG/DL [facility] CONVERSION Total Protein 6.7 6.0 - 8.0 G/DL [facility] CONVERSION Total Bilirubin 0.8 0.3 - 1.2 MG/DL [facility] CONVERSION Albumin 3.7 3.5 - 5.0 G/DL [facility] CONVERSION CO2 23 21 - 30 MMOL/L [facility] CONVERSION Anion Gap 6 (L) 8 - 12 [facility] CONVERSION Specimen Performing Organization Address [facility] Phone Number [facility] CONVERSION * CARDIAC MARKERS (10/11/2006 12:45 AM CDT) Myoglobin-Serum 100 0 - 105 NG/ML [facility] -Chemistry CONVERSION Troponin-I 15.84 (H) 0.0 - 0.05 NG/ML [facility] CONVERSION CKMB 108.0 (H) 0.6 - 6.3 NG/ML [facility] CONVERSION Specimen Performing Organization Address [facility] Phone [facility] * ENZYMES (10/11/2006 12:45 AM CDT) Alk Phosphatase 69 25 - 110 U/L [facility] CONVERSION AST (SGOT) 98 (H) 7 - 40 U/L [facility] CONVERSION ALT (SGPT) 56 7 - 56 U/L [facility] CONVERSION Specimen Performing Organization Address [facility] Phone [facility] * GENERAL CHEMISTRY (10/10/2006 9:49 PM CDT) Glucose, POC 130 (H) 70 - 110 MG/DL [facility] CONVERSION Specimen Performing Organization Address [facility] Phone Number [facility]VERSION * GENERAL CHEMISTRY (10/10/2006 6:57 PM CDT) Glucose, POC 106 70 - 110 MG/DL [facility] CONVERSION Specimen Performing Organization Address [facility] Phone Number [facility]VERSION * CARDIAC CATH REPORT (10/10/2006 8:08 AM CDT) Transcriptions 10/10/2006 8:08 AM CDT CATH REPORT MR #/Billing ID #: [id number] DATE: 10/10/06 CERAMICS TEST ENGINEER: Rasta Bush M.D. HISTORY/INDICATIONS: Mr. Peck is a 61-year-old gentleman with mult iple cardiac risk factors who presented to the [facility] with evidence of acute inferior myocardial infarction. He was given th rombolytic therapy and subcu Lovenox therapy. He appeared to fail thromb olytic therapy without reperfusion and was ambulated to the [facility] to undergo emergent left heart catheterization and percuta neous coronary intervention. PROCEDURES PERFORMED: 1. Left heart cardiac catheterization 2. Selective coronary angiography 3. Single plane left ventriculography 4. Percutaneous coronary intervention of the right coronary artery with p lacement of two bare metal stents. DESCRIPTION OF PROCEDURE: The patient was informed and consented of the risks, benefits, and alterna tives. Patient verbalized understanding and wished to proceed. Access was obtained in the right femoral artery with placement of a 6 Fren ch sheath. Access was obtained in the right femoral vein with placement o f a 4 [place]ian sheath. JL-4, JR-4, and pigtail catheters were used for the diagnostic portion of the procedure. A total of 180 cc of Visipaque contrast was used for the diagnostic interv ention portion of the procedure. At the conclusion of the patient's case, the patient's chest pain had been improving but was still residually present. The patient's sheath was sut ured into place and he was transported to the telemetry unit in stable con dition. The patient had been given aspirin and beta brennan therapy at the [facility]. The patient was given an additional 40 mg of IV Lovenox therapy for anticoagulation. At the conclusion of the case, the patient was transported to the CCU in s table but guarded position. FINDINGS: LEFT MAIN CORONARY ARTERY: The left main had minimal plaquing within it and then trifurcated into a ramus intermedius artery, left circumflex artery, a nd left anterior descending coronary artery. There was minimal plaq uing within the left main. LEFT ANTERIOR DESCENDING CORONARY ARTERY: The left anterior descend ing coronary artery gave rise to a high diagonal branch and had mild plaquing within it and then had diffuse mild plaquing in the mid portion where there was 50% steno sis at the takeoff of a small diagonal branch. The LAD was a type II vessel that reached the apex. RAMUS INTERMEDIUS: The ramus intermedius artery had a 60-70% stenosis in its proximal portion. The ramus subtends a very small territory and was a small ca liber vessel of approximately 1 to 1.5 mm. LEFT CIRCUMFLEX ARTERY: The left circumflex was nondominant and gave rise to two major obtuse marginals. In the proximal portion of the circumflex art deepika, there was a 70% stenosis within the vessel. RIGHT CORONARY ARTERY: The right coronary artery was technically dom inant and gave rise to a small to moderate RPD branch and moderate RPLV branch. The proximal portion had a 40-50% stenosis, the mid portion an 80% stenosis, while followed by diffuse 60% stenosis and a 95% stenosis with SOSA grade 2 flow and evidence of residual thr ombus. The PDA had a 50-60% stenosis within it. Left Ventriculography: Left ventriculography was performed in the standa rd DING view. The overall ejection fraction was approximately 40%. There was severe hypokinesis of the inferior basal, infradiaphragmatic segment. There was no significant mitral regurgitation noted. LV cavity size was normal. There was eviden ce of mild left ventricular hypertrophy. Details of the Interventional Portion of the Procedure: A JR-4 6 [place]ian guide gave adequate seating and support. A Luge wire was able to traverse the lesion with minimal difficulty. Pre-dilation was then performed util izing a 2.5 x 20 mm Voyager balloon. Subsequently a 3.[address] x [address] a[address] distally and deployed at 14 atmospheres. This was overlapped with a 3.5 x 18 mm Vision stent that was deployed in an overlapping fashion more proximally. The entire stented region was then post dilated using a 3.75 x 23 mm Powersail balloon. Three sequential inflations were performe d throughout stented area, up to 14 atmospheres. There was no evidence of edge dissection, plaque prolapse, or perforation. SOSA grade 2 flow had been maintained. The guide wire was then removed confirming the above res ults in the orthogonal views. Hemodynamics: LV pressure of 130/20, no aortic valve gradient on pull ba ck. IMPRESSIONS: 1. Moderate to severe proximal left circumflex stenosis. 2. Moderate to severe proximal ramus intermedius artery stenosis (very sm all vessel that subtends a small territory). 3. Moderate mid LAD stenosis 4. Subtotal distal RCA with diffuse high-grade mid disease as described a chuy. 5. Culprit for the patient's acute inferior ST elevation myocardial infar ction. 6. Successful PCI of the RCA a. Status post placement of two bare metal stents, a 3.0 x 30 mm Zet a distally overlapping with a 3.5 x 18 mm Vision stent (the entire stented region was post dil ated 3.75 mm). 7. Moderate LV dysfunction with severe inferior hypokinesis. 8. Elevated left ventricular end-diastolic pressure. RECOMMENDATIONS: 1. CCU treatment and care. 2. Discontinuation of sheath in approximately 12 hours secondary to throm bolytics. 3. Post AK and cardiomyopathy Rx as indicated. 4. Aggressive risk reduction. 5. Non-invasive evaluation of other lesions, including proximal left circ umflex stenosis. MICHELE/lady D: 10/10 T: 10/11 Signed by Rasta Bush MD on 10/20/2006 at 10:36 AM documented in this encounter Visit Diagnoses Not on filedocumented in this encounter
--- OUTSIDE RECORDS SUMMARY | 2019-01-12 08:48 | XMS REPORT | Continuity of Care Document ---
Author Organization Unknown Address Unknown Allergies Active Description Code Type Severity Reaction Onset Reported/Identified Relationship to Patient Clinical Status Yes No Known Drug Allergies [id number] Drug Allergy Unknown N/A 10/14/2016 Medications There is no data. 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 NEOPLASM OF UPPER LOBE, LEFT B 06/26/1144 JOSE SAWYER MD, Ot E11.9 TYPE 2 DIABETES MELLITUS WITHOUT COMPLIC 06/26/1144 JOSE SAWYER MD, Ot F17.210 NICOTINE DEPENDENCE, CIGARETTES, UNCOMPL 06/26/1144 JOSE SAWYER MD, Ot F43.10 POST-TRAUMATIC STRESS DISORDER, UNSPECIF 06/26/1144 JOSE SAWYER MD, Ot I11.0 HYPERTENSIVE HEART DISEASE WITH HEART FA 06/26/1144 JOSE SAWYER MD, Ot I25.10 ATHSCL HEART DISEASE OF [place] CORONARY 06/26/1144 JOSE SAWYER MD, Ot I50.32 CHRONIC DIASTOLIC (CONGESTIVE) HEART ELIZABETH 06/26/1144 JOSE SAWYER MD, Ot J44.9 CHRONIC OBSTRUCTIVE PULMONARY DISEASE, U 06/26/1144 JOSE SAWYER MD, Ot Z79.899 OTHER DETENTION (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 06/26/1144 JOSE SAWYER MD, Ot 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, 06/26/1144 JOSE SAWYER MD, Ot Z85.830 PERSONAL HISTORY OF MALIGNANT NEOPLASM O 06/26/1144 JOSE SAWYER MD, Ot Z92.21 PERSONAL HISTORY OF ANTINEOPLASTIC CHEMO 06/26/1144 JOSE SAWYER MD, Ot Z92.3 PERSONAL HISTORY OF IRRADIATION 10/09/2016 NIMESH GALVIN, SHANNAN Ot 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[place] 10/09/2016 SHANNAN BEAVERS MD Ot 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[place] 10/10/2016 SHANNAN BEAVERS MD Ot 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[place] 10/10/2016 NIMESH GALVIN, SHANNAN Ot 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 NEOPLASM OF UPPER LOBE, LEFT B 11/04/2016 SHANNAN BEAVERS MD Ot I10 ESSENTIAL (PRIMARY) HYPERTENSION 11/04/2016 SHANNAN BEAVERS MD Ot I25.10 ATHSCL HEART DISEASE OF [place] CORONARY 11/04/2016 SHANNAN BEAVERS MD Ot Z95.5 PRESENCE OF CORONARY ANGIOPLASTY IMPLANT 11/06/2016 SHANNAN BEAVERS MD Ot 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 NEOPLASM OF UPPER LOBE, LEFT B 11/06/2016 SHANNAN BEAVERS MD Ot I10 ESSENTIAL (PRIMARY) HYPERTENSION 11/06/2016 SHANNAN BEAVERS MD Ot I25.10 ATHSCL HEART DISEASE OF [place] CORONARY 11/06/2016 SHANNAN BEAVERS MD Ot Z95.5 PRESENCE OF CORONARY ANGIOPLASTY IMPLANT 11/06/2016 SHANNAN BEAVERS MD Ot 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 NEOPLASM OF UPPER LOBE, LEFT B 11/06/2016 SHANNAN BEAVERS MD Ot I10 ESSENTIAL (PRIMARY) HYPERTENSION 11/06/2016 SHANNAN BEAVERS MD Ot I25.10 ATHSCL HEART DISEASE OF [place] CORONARY 11/06/2016 SHANNAN BEAVERS MD Ot Z95.5 PRESENCE OF CORONARY ANGIOPLASTY IMPLANT 11/07/2016 SHANNAN BEAVERS MD Ot 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 NEOPLASM OF UPPER LOBE, LEFT B 11/07/2016 SHANNAN BEAVERS MD Ot I10 ESSENTIAL (PRIMARY) HYPERTENSION 11/07/2016 SHANNAN BEAVERS MD Ot I25.10 ATHSCL HEART DISEASE OF [place] CORONARY 11/07/2016 SHANNAN BEAVERS MD Ot Z95.5 PRESENCE OF CORONARY ANGIOPLASTY IMPLANT 11/08/2016 SUSIE GALVIN, PROMPAN Ot H02.401 UNSPECIFIED PTOSIS OF RIGHT EYELID 11/10/2016 SHANNAN BEAVERS MD Ot 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 NEOPLASM OF UPPER LOBE, LEFT B 11/10/2016 SHANNAN BEAVERS MD Ot I10 ESSENTIAL (PRIMARY) HYPERTENSION 11/10/2016 SHANNAN BEAVERS MD Ot I25.10 ATHSCL HEART DISEASE OF [place] CORONARY 11/10/2016 SHANNAN BEAVERS MD Ot Z95.5 PRESENCE OF CORONARY ANGIOPLASTY IMPLANT 12/06/2016 JOSE SAWYER MD Ot 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 NEOPLASM OF UPPER LOBE, LEFT B 12/24/2016 JOSE SAWYER MD Ot C34.11 MALIGNANT NEOPLASM OF UPPER LOBE, RIGHT 12/24/2016 JOSE SAWYER MD Ot 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 NEOPLASM OF UPPER LOBE, LEFT B 12/24/2016 JOSE SAWYER MD Ot F17.210 NICOTINE DEPENDENCE, CIGARETTES, UNCOMPL 12/24/2016 JOSE SAWYER MD Ot F43.10 POST-TRAUMATIC STRESS DISORDER, UNSPECIF 12/24/2016 JOSE SAWYER MD Ot I11.0 HYPERTENSIVE HEART DISEASE WITH HEART FA 12/24/2016 JOSE SAWYER MD Ot I25.10 ATHSCL HEART DISEASE OF [place] CORONARY 12/24/2016 JOSE SAWYER MD, Ot I50.32 CHRONIC DIASTOLIC (CONGESTIVE) HEART ELIZABETH 12/24/2016 JOSE SAWYER MD, Ot J44.9 CHRONIC OBSTRUCTIVE PULMONARY DISEASE, U 12/24/2016 JOSE SAWYER MD, Ot 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, 12/24/2016 JOSE SAWYER MD, Ot Z85.830 PERSONAL HISTORY OF MALIGNANT NEOPLASM O 12/24/2016 JOSE SAWYER MD, Ot Z92.21 PERSONAL HISTORY OF ANTINEOPLASTIC CHEMO 12/24/2016 JOSE SAWYER MD, Ot Z92.3 PERSONAL HISTORY OF IRRADIATION 12/24/2016 JOSE SAWYER MD, Ot Z95.5 PRESENCE OF CORONARY ANGIOPLASTY IMPLANT 12/31/2016 JOSE SAWYER MD, Ot C34.11 MALIGNANT NEOPLASM OF UPPER LOBE, RIGHT 12/31/2016 JOSE SAWYER MD, Ot 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 NEOPLASM OF UPPER LOBE, LEFT B 12/31/2016 JOSE SAWYER MD, Ot F17.210 NICOTINE DEPENDENCE, CIGARETTES, UNCOMPL 12/31/2016 JOSE SAWYER MD, Ot F43.10 POST-TRAUMATIC STRESS DISORDER, UNSPECIF 12/31/2016 JOSE SAWYER MD, Ot I11.0 HYPERTENSIVE HEART DISEASE WITH HEART FA 12/31/2016 JOSE SAWYER MD, Ot I25.10 ATHSCL HEART DISEASE OF [place] CORONARY 12/31/2016 JOSE SAWYER MD, Ot I50.32 CHRONIC DIASTOLIC (CONGESTIVE) HEART ELIZABETH 12/31/2016 JOSE SAWYER MD, Ot J44.9 CHRONIC OBSTRUCTIVE PULMONARY DISEASE, U 12/31/2016 JOSE SAWYER MD, Ot 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, 12/31/2016 JOSE SAWYER MD, Ot Z85.830 PERSONAL HISTORY OF MALIGNANT NEOPLASM O 12/31/2016 JOSE SAWYER MD, Ot Z92.21 PERSONAL HISTORY OF ANTINEOPLASTIC CHEMO 12/31/2016 JOSE SAWYER MD, Ot Z92.3 PERSONAL HISTORY OF IRRADIATION 12/31/2016 JOSE SAWYER MD, Ot Z95.5 PRESENCE OF CORONARY ANGIOPLASTY IMPLANT 01/01/2017 JOSE SAWYER MD, Ot 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 NEOPLASM OF UPPER LOBE, LEFT B 01/02/2017 JOSE SAWYER MD, Ot C34.11 MALIGNANT NEOPLASM OF UPPER LOBE, RIGHT 01/02/2017 JOSE SAWYER MD, Ot 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 NEOPLASM OF UPPER LOBE, LEFT B 01/02/2017 JOSE SAWYER MD Ot F17.210 NICOTINE DEPENDENCE, CIGARETTES, UNCOMPL 01/02/2017 JOSE SAWYER MD, Ot F43.10 POST-TRAUMATIC STRESS DISORDER, UNSPECIF 01/02/2017 JOSE SAWYER MD, Ot I11.0 HYPERTENSIVE HEART DISEASE WITH HEART FA 01/02/2017 JOSE SAWYER MD, Ot I25.10 ATHSCL HEART DISEASE OF [place] CORONARY 01/02/2017 JOSE SAWYER MD, Ot I50.32 CHRONIC DIASTOLIC (CONGESTIVE) HEART ELIZABETH 01/02/2017 JOSE SAWYER MD, Ot J44.9 CHRONIC OBSTRUCTIVE PULMONARY DISEASE, U 01/02/2017 JOSE SAWYER MD, Ot 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, 01/02/2017 JOSE SAWYER MD, Ot Z85.830 PERSONAL HISTORY OF MALIGNANT NEOPLASM O 01/02/2017 JOSE SAWYER MD, Ot Z92.21 PERSONAL HISTORY OF ANTINEOPLASTIC CHEMO 01/02/2017 JOSE SAWYER MD, Ot Z92.3 PERSONAL HISTORY OF IRRADIATION 01/02/2017 JOSE SAWYER MD Ot Z95.5 PRESENCE OF CORONARY ANGIOPLASTY IMPLANT 02/25/2017 JOSE SAWYER MD, Ot C34.11 MALIGNANT NEOPLASM OF UPPER LOBE, RIGHT 02/25/2017 JOSE SAWYER MD, Ot 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 NEOPLASM OF UPPER LOBE, LEFT B 02/25/2017 JOSE SAWYER MD Ot E11.9 TYPE 2 DIABETES MELLITUS WITHOUT COMPLIC 02/25/2017 JOSE SAWYER MD, Ot F17.210 NICOTINE DEPENDENCE, CIGARETTES, UNCOMPL 02/25/2017 JOSE SAWYER MD, Ot F43.10 POST-TRAUMATIC STRESS DISORDER, UNSPECIF 02/25/2017 JOSE SAWYER MD, Ot I11.0 HYPERTENSIVE HEART DISEASE WITH HEART FA 02/25/2017 JOSE SAWYER MD, Ot I25.10 ATHSCL HEART DISEASE OF [place] CORONARY 02/25/2017 JOSE SAWYER MD, Ot I50.32 CHRONIC DIASTOLIC (CONGESTIVE) HEART ELIZABETH 02/25/2017 JOSE SAWYER MD, Ot J44.9 CHRONIC OBSTRUCTIVE PULMONARY DISEASE, U 02/25/2017 JOSE SAWYER MD, Ot Z79.899 OTHER DETENTION (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 02/25/2017 JOSE SAWYER MD, Ot 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, 02/25/2017 JOSE SAWYER MD, Ot Z85.830 PERSONAL HISTORY OF MALIGNANT NEOPLASM O 02/25/2017 JOSE SAWYER MD Ot Z92.21 PERSONAL HISTORY OF ANTINEOPLASTIC CHEMO 02/25/2017 JOSE SAWYER MD, Ot Z92.3 PERSONAL HISTORY OF IRRADIATION 04/30/2017 HAROLDO GUZMAN MD, Ot C34.11 MALIGNANT NEOPLASM OF UPPER LOBE, RIGHT 04/30/2017 HAROLDO GUZMAN MD, Ot 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 NEOPLASM OF UPPER LOBE, LEFT B 04/30/2017 HAROLDO GUZMAN MD, Ot E11.9 TYPE 2 DIABETES MELLITUS WITHOUT COMPLIC 04/30/2017 HAROLDO GUZMAN MD, Ot E53.8 DEFICIENCY OF OTHER SPECIFIED B GROUP 04/30/2017 HAROLDO GUZMAN MD, Ot F17.210 NICOTINE DEPENDENCE, CIGARETTES, UNCOMPL 04/30/2017 HAROLDO GUZMAN MD, Ot F43.10 POST-TRAUMATIC STRESS DISORDER, UNSPECIF 04/30/2017 HAROLDO GUZMAN MD, Ot I11.0 HYPERTENSIVE HEART DISEASE WITH HEART FA 04/30/2017 HAROLDO GUZMAN MD, Ot I25.10 ATHSCL HEART DISEASE OF [place] CORONARY 04/30/2017 HAROLDO GUZMAN MD, Ot I50.32 CHRONIC DIASTOLIC (CONGESTIVE) HEART ELIZABETH 04/30/2017 HAROLDO GUZMAN MD, Ot J44.9 CHRONIC OBSTRUCTIVE PULMONARY DISEASE, U 04/30/2017 HAROLDO GUZMAN MD, Ot 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 04/30/2017 HAROLDO GUZMAN MD, Ot 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, 04/30/2017 HAROLDO GUZMAN MD, Ot Z85.830 PERSONAL HISTORY OF MALIGNANT NEOPLASM O 04/30/2017 HAROLDO GUZMAN MD, Ot Z92.21 PERSONAL HISTORY OF ANTINEOPLASTIC CHEMO 04/30/2017 HAROLDO GUZMAN MD, Ot Z92.3 PERSONAL HISTORY OF IRRADIATION 07/28/2017 HAROLDO GUZMAN MD, Ot C34.11 MALIGNANT NEOPLASM OF UPPER LOBE, RIGHT 07/28/2017 HAROLDO GUZMAN MD, Ot 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 NEOPLASM OF UPPER LOBE, LEFT B 07/28/2017 HAROLDO GUZMAN MD, Ot E11.9 TYPE 2 DIABETES MELLITUS WITHOUT COMPLIC 07/28/2017 HAROLDO GUZMAN MD Ot E53.8 DEFICIENCY OF OTHER SPECIFIED B GROUP 07/28/2017 HAROLDO GUZMAN MD, Ot F17.210 NICOTINE DEPENDENCE, CIGARETTES, UNCOMPL 07/28/2017 HAROLDO GUZMAN MD, Ot F43.10 POST-TRAUMATIC STRESS DISORDER, UNSPECIF 07/28/2017 HAROLDO GUZMAN MD, Ot I11.0 HYPERTENSIVE HEART DISEASE WITH HEART FA 07/28/2017 HAROLDO GUZMAN MD, Ot I25.10 ATHSCL HEART DISEASE OF [place] CORONARY 07/28/2017 HAROLDO GUZMAN MD, Ot I50.32 CHRONIC DIASTOLIC (CONGESTIVE) HEART ELIZABETH 07/28/2017 HAROLDO GUZMAN MD, Ot J44.9 CHRONIC OBSTRUCTIVE PULMONARY DISEASE, U 07/28/2017 HAROLDO GUZMAN MD, Ot 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 07/28/2017 HAROLDO GUZMAN MD, Ot 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, 07/28/2017 HAROLDO GUZMAN MD, Ot Z85.830 PERSONAL HISTORY OF MALIGNANT NEOPLASM O 07/28/2017 HAROLDO GUZMAN MD, Ot Z92.21 PERSONAL HISTORY OF ANTINEOPLASTIC CHEMO 07/28/2017 HAROLDO GUZMAN MD, Ot Z92.3 PERSONAL HISTORY OF IRRADIATION 07/30/2017 HAROLDO GUZMAN MD, Ot C34.11 MALIGNANT NEOPLASM OF UPPER LOBE, RIGHT 07/30/2017 HAROLDO GUZMAN MD, Ot 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 NEOPLASM OF UPPER LOBE, LEFT B 07/30/2017 HAROLDO GUZMAN MD, Ot E11.9 TYPE 2 DIABETES MELLITUS WITHOUT COMPLIC 07/30/2017 HAROLDO GUZMAN MD, Ot E53.8 DEFICIENCY OF OTHER SPECIFIED B GROUP 07/30/2017 HAROLDO GUZMAN MD, Ot F17.210 NICOTINE DEPENDENCE, CIGARETTES, UNCOMPL 07/30/2017 HAROLDO GUZMAN MD, Ot F43.10 POST-TRAUMATIC STRESS DISORDER, UNSPECIF 07/30/2017 HAROLDO GUZMAN MD, Ot I11.0 HYPERTENSIVE HEART DISEASE WITH HEART FA 07/30/2017 HAROLDO GUZMAN MD, Ot I25.10 ATHSCL HEART DISEASE OF [place] CORONARY 07/30/2017 HAROLDO GUZMAN MD, Ot I50.32 CHRONIC DIASTOLIC (CONGESTIVE) HEART ELIZABETH 07/30/2017 HAROLDO GUZMAN MD, Ot J44.9 CHRONIC OBSTRUCTIVE PULMONARY DISEASE, U 07/30/2017 HAROLDO GUZMAN MD, Ot 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 07/30/2017 HAROLDO GUZMAN MD, Ot 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, 07/30/2017 HAROLDO GUZMAN MD, Ot Z85.830 PERSONAL HISTORY OF MALIGNANT NEOPLASM O 07/30/2017 HAROLDO GUZMAN MD, Ot Z92.21 PERSONAL HISTORY OF ANTINEOPLASTIC CHEMO 07/30/2017 HAROLDO GUZMAN MD, Ot Z92.3 PERSONAL HISTORY OF IRRADIATION 08/26/2017 HAROLDO GUZMAN MD, Ot C34.11 MALIGNANT NEOPLASM OF UPPER LOBE, RIGHT 08/26/2017 HAROLDO GUZMAN MD, Ot 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 NEOPLASM OF UPPER LOBE, LEFT B 08/26/2017 HAROLDO GUZMAN MD, Ot E11.9 TYPE 2 DIABETES MELLITUS WITHOUT COMPLIC 08/26/2017 HAROLDO GUZMAN MD, Ot E53.8 DEFICIENCY OF OTHER SPECIFIED B GROUP 08/26/2017 HAROLDO GUZMAN MD, Ot F17.210 NICOTINE DEPENDENCE, CIGARETTES, UNCOMPL 08/26/2017 HAROLDO GUZMAN MD, Ot F43.10 POST-TRAUMATIC STRESS DISORDER, UNSPECIF 08/26/2017 HAROLDO GUZMAN MD, Ot I11.0 HYPERTENSIVE HEART DISEASE WITH HEART FA 08/26/2017 HAROLDO GUZMAN MD, Ot I25.10 ATHSCL HEART DISEASE OF [place] CORONARY 08/26/2017 HAROLDO GUZMAN MD, Ot I50.32 CHRONIC DIASTOLIC (CONGESTIVE) HEART ELIZABETH 08/26/2017 HAROLDO GUZMAN MD, Ot J44.9 CHRONIC OBSTRUCTIVE PULMONARY DISEASE, U 08/26/2017 HAROLDO GUZMAN MD, Ot 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 08/26/2017 HAROLDO GUZMAN MD, Ot 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, 08/26/2017 HAROLDO GUZMAN MD, Ot Z85.830 PERSONAL HISTORY OF MALIGNANT NEOPLASM O 08/26/2017 HAROLDO GUZMAN MD, Ot Z92.21 PERSONAL HISTORY OF ANTINEOPLASTIC CHEMO 08/26/2017 HAROLDO GUZMAN MD, Ot Z92.3 PERSONAL HISTORY OF IRRADIATION 08/27/2017 HAROLDO GUZMAN MD, Ot C34.11 MALIGNANT NEOPLASM OF UPPER LOBE, RIGHT 08/27/2017 HAROLDO GUZMAN MD, Ot 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 NEOPLASM OF UPPER LOBE, LEFT B 08/27/2017 HAROLDO GUZMAN MD, Ot E11.9 TYPE 2 DIABETES MELLITUS WITHOUT COMPLIC 08/27/2017 HAROLDO GUZMAN MD, Ot E53.8 DEFICIENCY OF OTHER SPECIFIED B GROUP 08/27/2017 HAROLDO GUZMAN MD, Ot F17.210 NICOTINE DEPENDENCE, CIGARETTES, UNCOMPL 08/27/2017 HAROLDO GUZMAN MD, Ot F43.10 POST-TRAUMATIC STRESS DISORDER, UNSPECIF 08/27/2017 HAROLDO GUZMAN MD, Ot I11.0 HYPERTENSIVE HEART DISEASE WITH HEART FA 08/27/2017 HAROLDO GUZMAN MD, Ot I25.10 ATHSCL HEART DISEASE OF [place] CORONARY 08/27/2017 HAROLDO GUZMAN MD, Ot I50.32 CHRONIC DIASTOLIC (CONGESTIVE) HEART ELIZABETH 08/27/2017 HAROLDO GUZMAN MD, Ot J44.9 CHRONIC OBSTRUCTIVE PULMONARY DISEASE, U 08/27/2017 HAROLDO GUZMAN MD, Ot Z79.899 OTHER DETENTION (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 08/27/2017 HAROLDO GUZMAN MD, Ot 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, 08/27/2017 HAROLDO GUZMAN MD, Ot Z85.830 PERSONAL HISTORY OF MALIGNANT NEOPLASM O 08/27/2017 HAROLDO GUZMAN MD, Ot Z92.21 PERSONAL HISTORY OF ANTINEOPLASTIC CHEMO 08/27/2017 HAROLDO GUZMAN MD, Ot Z92.3 PERSONAL HISTORY OF IRRADIATION 10/03/2017 HUBERT CASANOVA APRN Ot H60.91 UNSPECIFIED OTITIS EXTERNA, RIGHT EAR 10/03/2017 HUBERT CASANOVA APRN Ot H92.11 OTORRHEA, RIGHT EAR 10/03/2017 HUBERT CASANOVA APRN Ot Z79.82 DETENTION (CURRENT) USE OF ASPIRIN 10/06/2017 HUBERT CASANOVA APRN Ot H60.91 UNSPECIFIED OTITIS EXTERNA, RIGHT EAR 10/06/2017 HUBERT CASANOVA APRN Ot H92.11 OTORRHEA, RIGHT EAR 10/06/2017 HUBERT CASANOVA APRN Ot Z79.82 DETENTION (CURRENT) USE OF ASPIRIN 11/07/2017 SHANNAN BEAVERS MD Ot 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[place] 11/07/2017 SUSIE GALVIN, PROMBERNADETTE Ot H02.401 UNSPECIFIED PTOSIS OF RIGHT EYELID 11/07/2017 SHANNAN BEAVERS MD Ot 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 NEOPLASM OF UPPER LOBE, LEFT B 11/07/2017 SHANNAN BEAVERS MD Ot I10 ESSENTIAL (PRIMARY) HYPERTENSION 11/07/2017 SHANNAN BEAVERS MD Ot I25.10 ATHSCL HEART DISEASE OF [place] CORONARY 11/07/2017 SHANNAN BEVAERS MD Ot Z95.5 PRESENCE OF CORONARY ANGIOPLASTY IMPLANT 11/07/2017 HAROLDO GUZMAN MD, Ot C34.11 MALIGNANT NEOPLASM OF UPPER LOBE, RIGHT 11/07/2017 HAROLDO GUZMAN MD Ot J38.7 OTHER DISEASES OF [place] 11/07/2017 HAROLDO GUZMAN MD Ot R91.8 OTHER NONSPECIFIC ABNORMAL FINDING OF [place] 11/07/2017 HAROLDO GUZMAN MD, Ot C34.11 MALIGNANT NEOPLASM OF UPPER LOBE, RIGHT 11/07/2017 HAROLDO GUZMAN MD, Ot 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 NEOPLASM OF UPPER LOBE, LEFT B 11/07/2017 HAROLDO GUZMAN MD Ot E11.9 TYPE 2 DIABETES MELLITUS WITHOUT COMPLIC 11/07/2017 HAROLDO GUZMAN MD Ot E53.8 DEFICIENCY OF OTHER SPECIFIED B GROUP 11/07/2017 HAROLDO GUZMAN MD Ot F17.210 NICOTINE DEPENDENCE, CIGARETTES, UNCOMPL 11/07/2017 HAROLDO GUZMAN MD, Ot F43.10 POST-TRAUMATIC STRESS DISORDER, UNSPECIF 11/07/2017 HAROLDO GUZMAN MD, Ot I11.0 HYPERTENSIVE HEART DISEASE WITH HEART FA 11/07/2017 HAROLDO GUZMAN MD Ot I25.10 ATHSCL HEART DISEASE OF [place] CORONARY 11/07/2017 HAROLDO GUZMAN MD Ot I50.32 CHRONIC DIASTOLIC (CONGESTIVE) HEART ELIZABETH 11/07/2017 HAROLDO GUZMAN MD, Ot J44.9 CHRONIC OBSTRUCTIVE PULMONARY DISEASE, U 11/07/2017 HAROLDO GUZMAN MD, Ot 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 11/07/2017 HAROLDO GUZMAN MD, Ot 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, 11/07/2017 HAROLDO GUZMAN MD, Ot Z85.830 PERSONAL HISTORY OF MALIGNANT NEOPLASM O 11/07/2017 HAROLDO GUZMAN MD, Ot Z92.21 PERSONAL HISTORY OF ANTINEOPLASTIC CHEMO 11/07/2017 HAROLDO GUZMAN MD, Ot Z92.3 PERSONAL HISTORY OF IRRADIATION 11/10/2017 SHANNAN BEAVERS MD Ot 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[place] 11/10/2017 SUSIE GALVIN, FLOYD Ot H02.401 UNSPECIFIED PTOSIS OF RIGHT EYELID 11/10/2017 SHANNAN BEAVERS MD Ot 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 NEOPLASM OF UPPER LOBE, LEFT B 11/10/2017 SHANNAN BEAVERS MD Ot I10 ESSENTIAL (PRIMARY) HYPERTENSION 11/10/2017 SHANNAN BEAVERS MD Ot I25.10 ATHSCL HEART DISEASE OF [place] CORONARY 11/10/2017 SHANNAN BEAVERS MD Ot Z95.5 PRESENCE OF CORONARY ANGIOPLASTY IMPLANT 11/10/2017 HAROLDO GUZMAN MD, Ot C34.11 MALIGNANT NEOPLASM OF UPPER LOBE, RIGHT 11/10/2017 HAROLDO GUZMAN MD Ot J38.7 OTHER DISEASES OF [place] 11/10/2017 HAROLDO GUZMAN MD Ot R91.8 OTHER NONSPECIFIC ABNORMAL FINDING OF [place] 11/10/2017 HAROLDO GUZMAN MD, Ot C34.11 MALIGNANT NEOPLASM OF UPPER LOBE, RIGHT 11/10/2017 HAROLDO GUZMAN MD, Ot 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 NEOPLASM OF UPPER LOBE, LEFT B 11/10/2017 HAROLDO GUZMAN MD, Ot E11.9 TYPE 2 DIABETES MELLITUS WITHOUT COMPLIC 11/10/2017 HAROLDO GUZMAN MD, Ot E53.8 DEFICIENCY OF OTHER SPECIFIED B GROUP 11/10/2017 HAROLDO GUZMAN MD, Ot F17.210 NICOTINE DEPENDENCE, CIGARETTES, UNCOMPL 11/10/2017 HAROLDO GUZMAN MD, Ot F43.10 POST-TRAUMATIC STRESS DISORDER, UNSPECIF 11/10/2017 HAROLDO GUZMAN MD, Ot I11.0 HYPERTENSIVE HEART DISEASE WITH HEART FA 11/10/2017 HAROLDO GUZMAN MD, Ot I25.10 ATHSCL HEART DISEASE OF [place] CORONARY 11/10/2017 HAROLDO GUZMAN MD, Ot I50.32 CHRONIC DIASTOLIC (CONGESTIVE) HEART ELIZABETH 11/10/2017 HAROLDO GUZMAN MD, Ot J44.9 CHRONIC OBSTRUCTIVE PULMONARY DISEASE, U 11/10/2017 HAROLDO GUZMAN MD, Ot 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 11/10/2017 HAROLDO GUZMAN MD, Ot 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, 11/10/2017 HAROLDO GUZMAN MD, Ot Z85.830 PERSONAL HISTORY OF MALIGNANT NEOPLASM O 11/10/2017 HAROLDO GUZMAN MD, Ot Z92.21 PERSONAL HISTORY OF ANTINEOPLASTIC CHEMO 11/10/2017 HAROLDO GUZMAN MD, Ot Z92.3 PERSONAL HISTORY OF IRRADIATION 11/11/2017 SHANNAN BEAVERS MD Ot 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[place] 11/11/2017 SUSIE GALVIN, PROMPAN Ot H02.401 UNSPECIFIED PTOSIS OF RIGHT EYELID 11/11/2017 SHANNAN BEAVERS MD Ot 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 NEOPLASM OF UPPER LOBE, LEFT B 11/11/2017 SHANNAN BEAVERS MD Ot I10 ESSENTIAL (PRIMARY) HYPERTENSION 11/11/2017 SHANNAN BEAVERS MD Ot I25.10 ATHSCL HEART DISEASE OF [place] CORONARY 11/11/2017 SHANNAN BEAVERS MD Ot Z95.5 PRESENCE OF CORONARY ANGIOPLASTY IMPLANT 11/11/2017 HAROLDO GUZMAN MD, Ot C34.11 MALIGNANT NEOPLASM OF UPPER LOBE, RIGHT 11/11/2017 HAROLDO GUZMAN MD, Ot J38.7 OTHER DISEASES OF [place] 11/11/2017 HAROLDO GUZMAN MD Ot R91.8 OTHER NONSPECIFIC ABNORMAL FINDING OF [place] 11/11/2017 HAROLDO GUZMAN MD Ot C34.11 MALIGNANT NEOPLASM OF UPPER LOBE, RIGHT 11/11/2017 HAROLDO GUZMAN MD, Ot 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 NEOPLASM OF UPPER LOBE, LEFT B 11/11/2017 HAROLDO GUZMAN MD, Ot E11.9 TYPE 2 DIABETES MELLITUS WITHOUT COMPLIC 11/11/2017 HAROLDO GUZMAN MD, Ot E53.8 DEFICIENCY OF OTHER SPECIFIED B GROUP 11/11/2017 HAROLDO GUZMAN MD, Ot F17.210 NICOTINE DEPENDENCE, CIGARETTES, UNCOMPL 11/11/2017 HAROLDO GUZMAN MD, Ot F43.10 POST-TRAUMATIC STRESS DISORDER, UNSPECIF 11/11/2017 HAROLDO GUZMAN MD, Ot I11.0 HYPERTENSIVE HEART DISEASE WITH HEART FA 11/11/2017 HAROLDO GUZMAN MD, Ot I25.10 ATHSCL HEART DISEASE OF [place] CORONARY 11/11/2017 HAROLDO GUZMAN MD, Ot I50.32 CHRONIC DIASTOLIC (CONGESTIVE) HEART ELIZABETH 11/11/2017 HAROLDO GUZMAN MD, Ot J44.9 CHRONIC OBSTRUCTIVE PULMONARY DISEASE, U 11/11/2017 HAROLDO GUZMAN MD, Ot 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 11/11/2017 HAROLDO GUZMAN MD, Ot 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, 11/11/2017 HAROLDO GUZMAN MD, Ot Z85.830 PERSONAL HISTORY OF MALIGNANT NEOPLASM O 11/11/2017 HAROLDO GUZMAN MD, Ot Z92.21 PERSONAL HISTORY OF ANTINEOPLASTIC CHEMO 11/11/2017 HAROLDO GUZMAN MD, Ot Z92.3 PERSONAL HISTORY OF IRRADIATION 11/12/2017 HAROLDO GUZMAN MD, Ot C34.11 MALIGNANT NEOPLASM OF UPPER LOBE, RIGHT 11/12/2017 HAROLDO GUZMAN MD, Ot I65.23 OCCLUSION AND STENOSIS OF BILATERAL [place] 11/12/2017 HAROLDO GUZMAN MD, Ot I67.2 CEREBRAL ATHEROSCLEROSIS 11/12/2017 HAROLDO GUZMAN MD, Ot I71.4 ABDOMINAL AORTIC ANEURYSM, WITHOUT RUPTU 11/12/2017 HAROLDO GUZMAN MD, Ot R60.0 LOCALIZED EDEMA 11/12/2017 HAROLDO GUZMAN MD, Ot Z85.819 PRSNL HX OF MALIG NEOPLM OF UNSP SITE LI 11/18/2017 HAROLDO GUZMAN MD, Ot C34.11 MALIGNANT NEOPLASM OF UPPER LOBE, RIGHT 11/18/2017 HAROLDO GUZMAN MD Ot 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 NEOPLASM OF UPPER LOBE, LEFT B 11/18/2017 HAROLDO GUZMAN MD Ot E11.9 TYPE 2 DIABETES MELLITUS WITHOUT COMPLIC 11/18/2017 HAROLDO GUZMAN MD, Ot E53.8 DEFICIENCY OF OTHER SPECIFIED B GROUP 11/18/2017 HAROLDO GUZMAN MD Ot F17.210 NICOTINE DEPENDENCE, CIGARETTES, UNCOMPL 11/18/2017 HAROLDO GUZMAN MD, Ot F43.10 POST-TRAUMATIC STRESS DISORDER, UNSPECIF 11/18/2017 HAROLDO GUZMAN MD, Ot I11.0 HYPERTENSIVE HEART DISEASE WITH HEART FA 11/18/2017 HAROLDO GUZMAN MD, Ot I25.10 ATHSCL HEART DISEASE OF [place] CORONARY 11/18/2017 HAROLDO GUZMAN MD, Ot I50.32 CHRONIC DIASTOLIC (CONGESTIVE) HEART [place]IZ[place] 11/18/2017 HAROLDO GUZMAN MD, Ot J44.9 CHRONIC OBSTRUCTIVE PULMONARY DISEASE, U 11/18/2017 HAROLDO GUZMAN MD, Ot Z79.899 OTHER DETENTION (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 11/18/2017 HAROLDO GUZMAN MD, Ot 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, 11/18/2017 HAROLDO GUZMAN MD, Ot Z85.830 PERSONAL HISTORY OF MALIGNANT NEOPLASM O 11/18/2017 HAROLDO GUZMAN MD, Ot Z92.21 PERSONAL HISTORY OF ANTINEOPLASTIC CHEMO 11/18/2017 HAROLDO GUZMAN MD, Ot Z92.3 PERSONAL HISTORY OF IRRADIATION 11/24/2017 HAROLDO GUZMAN MD, Ot C34.11 MALIGNANT NEOPLASM OF UPPER LOBE, RIGHT 11/24/2017 HAROLDO GUZMAN MD, Ot 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 NEOPLASM OF UPPER LOBE, LEFT B 11/24/2017 HAROLDO GUZMAN MD, Ot E11.9 TYPE 2 DIABETES MELLITUS WITHOUT COMPLIC 11/24/2017 HAROLDO GUZMAN MD, Ot E53.8 DEFICIENCY OF OTHER SPECIFIED B GROUP 11/24/2017 HAROLDO GUZMAN MD Ot F17.210 NICOTINE DEPENDENCE, CIGARETTES, UNCOMPL 11/24/2017 HAROLDO GUZMAN MD, Ot F43.10 POST-TRAUMATIC STRESS DISORDER, UNSPECIF 11/24/2017 HAROLDO GUZMAN MD, Ot I11.0 HYPERTENSIVE HEART DISEASE WITH HEART FA 11/24/2017 HAROLDO GUZMAN MD, Ot I25.10 ATHSCL HEART DISEASE OF [place] CORONARY 11/24/2017 HAROLDO GUZMAN MD, Ot I50.32 CHRONIC DIASTOLIC (CONGESTIVE) HEART [place]IZ[place] 11/24/2017 HAROLDO GUZMAN MD, Ot J44.9 CHRONIC OBSTRUCTIVE PULMONARY DISEASE, U 11/24/2017 HAROLDO GUZMAN MD, Ot Z79.899 OTHER DETENTION (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 11/24/2017 HAROLDO GUZMAN MD, Ot 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, 11/24/2017 HAROLDO GUZMAN MD, Ot Z85.830 PERSONAL HISTORY OF MALIGNANT NEOPLASM O 11/24/2017 HAROLDO GUZMAN MD, Ot Z92.21 PERSONAL HISTORY OF ANTINEOPLASTIC CHEMO 11/24/2017 HAROLDO GUZMAN MD, Ot Z92.3 PERSONAL HISTORY OF IRRADIATION 11/24/2017 HAROLDO GUZMAN MD, Ot I70.0 ATHEROSCLEROSIS OF [place] 11/24/2017 HAROLDO GUZMAN MD, Ot I71.4 ABDOMINAL AORTIC ANEURYSM, WITHOUT RUPTU 11/24/2017 HAROLDO GUZMAN MD, Ot M43.8X6 OTHER SPECIFIED DEFORMING DORSOPATHIES, 11/24/2017 HARLODO GUZMAN MD, Ot Z85.118 PERSONAL HISTORY OF MALIGNANT NEOPLASM O 11/24/2017 HAROLDO GUZMAN MD, Ot Z85.89 PERSONAL HISTORY OF MALIGNANT NEOPLASM O 11/25/2017 HAROLDO GUZMAN MD, Ot C34.11 MALIGNANT NEOPLASM OF UPPER LOBE, RIGHT 11/25/2017 HAROLDO GUZMAN MD, Ot 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 NEOPLASM OF UPPER LOBE, LEFT B 11/25/2017 HAROLDO GUZMAN MD, Ot E11.9 TYPE 2 DIABETES MELLITUS WITHOUT COMPLIC 11/25/2017 HAROLDO GUZMAN MD, Ot E53.8 DEFICIENCY OF OTHER SPECIFIED B GROUP 11/25/2017 HAROLDO GUZMAN MD, Ot F17.210 NICOTINE DEPENDENCE, CIGARETTES, UNCOMPL 11/25/2017 HAROLDO GUZMAN MD, Ot F43.10 POST-TRAUMATIC STRESS DISORDER, UNSPECIF 11/25/2017 HAROLDO GUZMAN MD, Ot I11.0 HYPERTENSIVE HEART DISEASE WITH HEART FA 11/25/2017 HAROLDO GUZMAN MD, Ot I25.10 ATHSCL HEART DISEASE OF [place] CORONARY 11/25/2017 HAROLDO GUZMAN MD, Ot I50.32 CHRONIC DIASTOLIC (CONGESTIVE) HEART ELIZABETH 11/25/2017 HAROLDO GUZMAN MD, Ot J44.9 CHRONIC OBSTRUCTIVE PULMONARY DISEASE, U 11/25/2017 HAROLDO GUZMAN MD, Ot Z79.899 OTHER DETENTION (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 11/25/2017 HAROLDO GUZMAN MD, Ot 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, 11/25/2017 HAROLDO GUZMAN MD, Ot Z85.830 PERSONAL HISTORY OF MALIGNANT NEOPLASM O 11/25/2017 HAROLDO GUZMAN MD, Ot Z92.21 PERSONAL HISTORY OF ANTINEOPLASTIC CHEMO 11/25/2017 HAROLDO GUZMAN MD, Ot Z92.3 PERSONAL HISTORY OF IRRADIATION 11/27/2017 HAROLDO GUZMAN MD, Ot C34.11 MALIGNANT NEOPLASM OF UPPER LOBE, RIGHT 11/27/2017 HAROLDO GUZMAN MD, Ot 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 NEOPLASM OF UPPER LOBE, LEFT B 11/27/2017 HAROLDO GUZMAN MD, Ot E11.9 TYPE 2 DIABETES MELLITUS WITHOUT COMPLIC 11/27/2017 HAROLDO GUZMAN MD, Ot E53.8 DEFICIENCY OF OTHER SPECIFIED B GROUP 11/27/2017 HAROLDO GUZMAN MD, Ot F17.210 NICOTINE DEPENDENCE, CIGARETTES, UNCOMPL 11/27/2017 HAROLDO GUZMAN MD, Ot F43.10 POST-TRAUMATIC STRESS DISORDER, UNSPECIF 11/27/2017 HAROLDO GUZMAN MD, Ot I11.0 HYPERTENSIVE HEART DISEASE WITH HEART FA 11/27/2017 HAROLDO GUZMAN MD, Ot I25.10 ATHSCL HEART DISEASE OF [place] CORONARY 11/27/2017 HAROLDO GUZMAN MD, Ot I50.32 CHRONIC DIASTOLIC (CONGESTIVE) HEART ELIZABETH 11/27/2017 HAROLDO GUZMAN MD, Ot J44.9 CHRONIC OBSTRUCTIVE PULMONARY DISEASE, U 11/27/2017 HAROLDO GUZMAN MD, Ot Z79.899 OTHER DETENTION (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 11/27/2017 HAROLDO GUZMAN MD, Ot 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, 11/27/2017 HAROLDO GUZMAN MD, Ot Z85.830 PERSONAL HISTORY OF MALIGNANT NEOPLASM O 11/27/2017 HAROLDO GUZMAN MD, Ot Z92.21 PERSONAL HISTORY OF ANTINEOPLASTIC CHEMO 11/27/2017 HAROLDO GUZMAN MD, Ot Z92.3 PERSONAL HISTORY OF IRRADIATION 11/27/2017 HAROLDO GUZMAN MD, Ot C34.11 MALIGNANT NEOPLASM OF UPPER LOBE, RIGHT 11/27/2017 HAROLDO GUZMAN MD, Ot 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 NEOPLASM OF UPPER LOBE, LEFT B 11/27/2017 HAROLDO GUZMAN MD, Ot E11.9 TYPE 2 DIABETES MELLITUS WITHOUT COMPLIC 11/27/2017 HAROLDO GUZMAN MD, Ot E53.8 DEFICIENCY OF OTHER SPECIFIED B GROUP 11/27/2017 HAROLDO GUZMAN MD, Ot F17.210 NICOTINE DEPENDENCE, CIGARETTES, UNCOMPL 11/27/2017 HAROLDO GUZMAN MD, Ot F43.10 POST-TRAUMATIC STRESS DISORDER, UNSPECIF 11/27/2017 HAROLDO GUZMAN MD, Ot I11.0 HYPERTENSIVE HEART DISEASE WITH HEART FA 11/27/2017 HAROLDO GUZMAN MD, Ot I25.10 ATHSCL HEART DISEASE OF [place] CORONARY 11/27/2017 HAROLDO GUZMAN MD, Ot I50.32 CHRONIC DIASTOLIC (CONGESTIVE) HEART ELIZABETH 11/27/2017 HAROLDO GUZMAN MD, Ot J44.9 CHRONIC OBSTRUCTIVE PULMONARY DISEASE, U 11/27/2017 HAROLDO GUZMAN MD, Ot 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 11/27/2017 HAROLDO GUZMAN MD, Ot 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, 11/27/2017 HAROLDO GUZMAN MD, Ot Z85.830 PERSONAL HISTORY OF MALIGNANT NEOPLASM O 11/27/2017 HAROLDO GUZMAN MD, Ot Z92.21 PERSONAL HISTORY OF ANTINEOPLASTIC CHEMO 11/27/2017 HAROLDO GUZMAN MD, Ot Z92.3 PERSONAL HISTORY OF IRRADIATION 11/28/2017 HAROLDO GUZMAN MD, Ot C34.11 MALIGNANT NEOPLASM OF UPPER LOBE, RIGHT 11/28/2017 HAROLDO GUZMAN MD, Ot 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 NEOPLASM OF UPPER LOBE, LEFT B 11/28/2017 HAROLDO GUZMAN MD, Ot E11.9 TYPE 2 DIABETES MELLITUS WITHOUT COMPLIC 11/28/2017 HAROLDO GUZMAN MD, Ot E53.8 DEFICIENCY OF OTHER SPECIFIED B GROUP 11/28/2017 HAROLDO GUZMAN MD, Ot F17.210 NICOTINE DEPENDENCE, CIGARETTES, UNCOMPL 11/28/2017 HAROLDO GUZMAN MD, Ot F43.10 POST-TRAUMATIC STRESS DISORDER, UNSPECIF 11/28/2017 HAROLDO GUZMAN MD, Ot I11.0 HYPERTENSIVE HEART DISEASE WITH HEART FA 11/28/2017 HAROLDO GUZMAN MD, Ot I25.10 ATHSCL HEART DISEASE OF [place] CORONARY 11/28/2017 HAROLDO GUZMAN MD, Ot I50.32 CHRONIC DIASTOLIC (CONGESTIVE) HEART ELIZABETH 11/28/2017 HAROLDO GUZMAN MD, Ot J44.9 CHRONIC OBSTRUCTIVE PULMONARY DISEASE, U 11/28/2017 HAROLDO GUZMAN MD, Ot 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 11/28/2017 HAROLDO GUZMAN MD, Ot 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, 11/28/2017 HAROLDO GUZMAN MD, Ot Z85.830 PERSONAL HISTORY OF MALIGNANT NEOPLASM O 11/28/2017 HAROLDO GUZMAN MD, Ot Z92.21 PERSONAL HISTORY OF ANTINEOPLASTIC CHEMO 11/28/2017 HAROLDO GUZMAN MD, Ot Z92.3 PERSONAL HISTORY OF IRRADIATION 12/19/2017 Jyoti IRELAND MD Ot E78.5 HYPERLIPIDEMIA, UNSPECIFIED 12/19/2017 Jyoti IRELAND MD Ot I10 ESSENTIAL (PRIMARY) HYPERTENSION 12/19/2017 Jyoti IRELAND MD, Ot I25.10 ATHSCL HEART DISEASE OF [place] CORONARY 12/19/2017 Jyoti IRELAND MD, Ot Z01.810 ENCOUNTER FOR PREPROCEDURAL CARDIOVASCUL 12/19/2017 Jyoti IRELAND MD Ot Z72.0 TOBACCO USE 01/26/2018 HAROLDO GUZMAN MD, Ot I70.0 ATHEROSCLEROSIS OF [place] 01/26/2018 HAROLDO GUZMAN MD, Ot I71.4 ABDOMINAL [place]IC ANEURYSM, WITHOUT RUPTU 01/26/2018 HAROLDO GUZMAN MD, Ot M43.8X6 OTHER SPECIFIED DEFORMING DORSOPATHIES, 01/26/2018 HAROLDO GUZMAN MD, Ot Z85.118 PERSONAL HISTORY OF MALIGNANT NEOPLASM O 01/26/2018 HAROLDO GUZMAN MD, Ot Z85.89 PERSONAL HISTORY OF MALIGNANT NEOPLASM O 02/25/2018 HAROLDO GUZMAN MD, Ot C34.11 MALIGNANT NEOPLASM OF UPPER LOBE, RIGHT 02/25/2018 HAROLDO GUZMAN MD, Ot 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 NEOPLASM OF UPPER LOBE, LEFT B 02/25/2018 HAROLDO GUZMAN MD Ot E11.9 TYPE 2 DIABETES MELLITUS WITHOUT COMPLIC 02/25/2018 HAROLDO GUZMAN MD, Ot E53.8 DEFICIENCY OF OTHER SPECIFIED B GROUP 02/25/2018 HAROLDO GUZMAN MD, Ot F17.210 NICOTINE DEPENDENCE, CIGARETTES, UNCOMPL 02/25/2018 HAROLDO GUZMAN MD, Ot F43.10 POST-TRAUMATIC STRESS DISORDER, UNSPECIF 02/25/2018 HAROLDO GUZMAN MD, Ot I11.0 HYPERTENSIVE HEART DISEASE WITH HEART FA 02/25/2018 HAROLDO GUZMAN MD, Ot I25.10 ATHSCL HEART DISEASE OF [place] CORONARY 02/25/2018 HAROLDO GUZMAN MD, Ot I50.32 CHRONIC DIASTOLIC (CONGESTIVE) HEART ELIZABETH 02/25/2018 HAROLDO GUZMAN MD, Ot J44.9 CHRONIC OBSTRUCTIVE PULMONARY DISEASE, U 02/25/2018 HAROLDO GUZMAN MD, Ot Z79.899 OTHER DETENTION (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 02/25/2018 HAROLDO GUZMAN MD, Ot 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, 02/25/2018 HAROLDO GUZMAN MD, Ot Z85.830 PERSONAL HISTORY OF MALIGNANT NEOPLASM O 02/25/2018 HAROLDO GUZMAN MD, Ot Z92.21 PERSONAL HISTORY OF ANTINEOPLASTIC CHEMO 02/25/2018 HAROLDO GUZMAN MD, Ot Z92.3 PERSONAL HISTORY OF IRRADIATION 11/06/2018 HAROLDO GUZMAN MD, Ot 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 NEOPLASM OF UPPER LOBE, LEFT B 11/06/2018 HAROLDO GUZMAN MD, Ot I71.4 ABDOMINAL AORTIC ANEURYSM, WITHOUT RUPTU 11/06/2018 HAROLDO GUZMAN MD, Ot 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 11/11/2018 HAROLDO GUZMAN MD, Ot 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 NEOPLASM OF UPPER LOBE, LEFT B 11/11/2018 HAROLDO GUZMAN MD, Ot I71.4 ABDOMINAL AORTIC ANEURYSM, WITHOUT RUPTU 11/11/2018 HAROLDO GUZMAN MD, Ot 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 11/15/2018 HAROLDO GUZMAN MD, Ot C34.11 MALIGNANT NEOPLASM OF UPPER LOBE, RIGHT 11/15/2018 HAROLDO GUZMAN MD, Ot 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 NEOPLASM OF UPPER LOBE, LEFT B 11/15/2018 HAROLDO GUZMAN MD, Ot E11.9 TYPE 2 DIABETES MELLITUS WITHOUT COMPLIC 11/15/2018 HAROLDO GUZMAN MD, Ot E53.8 DEFICIENCY OF OTHER SPECIFIED B GROUP 11/15/2018 HAROLDO GUZMAN MD, Ot F17.210 NICOTINE DEPENDENCE, CIGARETTES, UNCOMPL 11/15/2018 HAROLDO GUZMAN MD, Ot F43.10 POST-TRAUMATIC STRESS DISORDER, UNSPECIF 11/15/2018 HAROLDO GUZMAN MD, Ot I11.0 HYPERTENSIVE HEART DISEASE WITH HEART FA 11/15/2018 HAROLDO GUZMAN MD, Ot I25.10 ATHSCL HEART DISEASE OF [place] CORONARY 11/15/2018 HAROLDO GUZMAN MD, Ot I50.32 CHRONIC DIASTOLIC (CONGESTIVE) HEART ELIZABETH 11/15/2018 HAROLDO GUZMAN MD, Ot I70.0 ATHEROSCLEROSIS OF [place] 11/15/2018 HAROLDO GUZMAN MD, Ot I71.4 ABDOMINAL AORTIC ANEURYSM, WITHOUT RUPTU 11/15/2018 HAROLDO GUZMAN MD, Ot J44.9 CHRONIC OBSTRUCTIVE PULMONARY DISEASE, U 11/15/2018 HAROLDO GUZMAN MD, Ot M43.8X6 OTHER SPECIFIED DEFORMING DORSOPATHIES, 11/15/2018 HAROLDO GUZMAN MD, Ot Z79.899 OTHER DETENTION (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 11/15/2018 HAROLDO GUZMAN MD, Ot 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, 11/15/2018 HAROLDO GUZMAN MD, Ot Z85.830 PERSONAL HISTORY OF MALIGNANT NEOPLASM O 11/15/2018 HAROLDO GUZMAN MD, Ot Z85.89 PERSONAL HISTORY OF MALIGNANT NEOPLASM O 11/15/2018 HAROLDO GUZMAN MD, Ot Z92.21 PERSONAL HISTORY OF ANTINEOPLASTIC CHEMO 11/15/2018 XUN MD, OLIVAS-JOSE JUAN Ot Z92.3 PERSONAL HISTORY OF IRRADIATION 11/16/2018 HAROLDO GUZMAN MD, Ot C34.11 MALIGNANT NEOPLASM OF UPPER LOBE, RIGHT 11/16/2018 HAROLDO GUZMAN MD, Ot 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 NEOPLASM OF UPPER LOBE, LEFT B 11/16/2018 HAROLDO GUZMAN MD, Ot E11.9 TYPE 2 DIABETES MELLITUS WITHOUT COMPLIC 11/16/2018 HAROLDO GUZMAN MD, Ot E53.8 DEFICIENCY OF OTHER SPECIFIED B GROUP 11/16/2018 HAROLDO GUZMAN MD, Ot F17.210 NICOTINE DEPENDENCE, CIGARETTES, UNCOMPL 11/16/2018 HAORLDO GUZMAN MD, Ot F43.10 POST-TRAUMATIC STRESS DISORDER, UNSPECIF 11/16/2018 HAROLDO GUZMAN MD, Ot I11.0 HYPERTENSIVE HEART DISEASE WITH HEART FA 11/16/2018 HAROLDO GUZMAN MD, Ot I25.10 ATHSCL HEART DISEASE OF [place] CORONARY 11/16/2018 HAROLDO GUZMAN MD, Ot I50.32 CHRONIC DIASTOLIC (CONGESTIVE) HEART ELIZABETH 11/16/2018 HAROLDO GUZMAN MD, Ot I70.0 ATHEROSCLEROSIS OF [place] 11/16/2018 HAROLDO GUZMAN MD, Ot I71.4 ABDOMINAL AORTIC ANEURYSM, WITHOUT RUPTU 11/16/2018 HAROLDO GUZMAN MD, Ot J44.9 CHRONIC OBSTRUCTIVE PULMONARY DISEASE, U 11/16/2018 HAROLDO GUZMAN MD, Ot M43.8X6 OTHER SPECIFIED DEFORMING DORSOPATHIES, 11/16/2018 HAROLDO GUZMAN MD, Ot Z79.899 OTHER DETENTION (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 11/16/2018 HAROLDO GUZMAN MD, Ot 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, 11/16/2018 HAROLDO GUZMAN MD, Ot Z85.830 PERSONAL HISTORY OF MALIGNANT NEOPLASM O 11/16/2018 HAROLDO GUZMAN MD, Ot Z85.89 PERSONAL HISTORY OF MALIGNANT NEOPLASM O 11/16/2018 HAROLDO GUZMAN MD, Ot Z92.21 PERSONAL HISTORY OF ANTINEOPLASTIC CHEMO 11/16/2018 HAROLDO GUZMAN MD, Ot Z92.3 PERSONAL HISTORY OF IRRADIATION 11/17/2018 HAROLDO GUZMAN MD, Ot 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 NEOPLASM OF UPPER LOBE, LEFT B 11/17/2018 HAROLDO GUZMAN MD, Ot I71.4 ABDOMINAL AORTIC ANEURYSM, WITHOUT RUPTU 11/17/2018 HAROLDO GUZMAN MD, Ot 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 12/28/2018 SHANNAN BEAVERS MD Ot 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[place] 12/28/2018 SUSIE GALVIN, PROMBERNADETTE Ot H02.401 UNSPECIFIED PTOSIS OF RIGHT EYELID 12/28/2018 SHANNAN BEAVERS MD Ot 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 NEOPLASM OF UPPER LOBE, LEFT B 12/28/2018 SHANNAN BEAVERS MD Ot I10 ESSENTIAL (PRIMARY) HYPERTENSION 12/28/2018 SHANNAN BEAVERS MD Ot I25.10 ATHSCL HEART DISEASE OF [place] CORONARY 12/28/2018 SHANNAN BEAVERS MD Ot Z95.5 PRESENCE OF CORONARY ANGIOPLASTY IMPLANT 12/28/2018 HAROLDO GUZMAN MD, Ot C34.11 MALIGNANT NEOPLASM OF UPPER LOBE, RIGHT 12/28/2018 HAROLDO GUZMAN MD Ot J38.7 OTHER DISEASES OF [place] 12/28/2018 HAROLDO GUZMAN MD, Ot R91.8 OTHER NONSPECIFIC ABNORMAL FINDING OF [place] 12/28/2018 HAROLDO GUZMAN MD, Ot C34.11 MALIGNANT NEOPLASM OF UPPER LOBE, RIGHT 12/28/2018 HAROLDO GUZMAN MD, Ot I65.23 OCCLUSION AND STENOSIS OF BILATERAL [place] 12/28/2018 HAROLDO GUZMAN MD, Ot I67.2 CEREBRAL ATHEROSCLEROSIS 12/28/2018 HAROLDO GUZMAN MD, Ot I71.4 ABDOMINAL AORTIC ANEURYSM, WITHOUT RUPTU 12/28/2018 HAROLDO GUZMAN MD, Ot R60.0 LOCALIZED EDEMA 12/28/2018 HAROLDO GUZMAN MD, Ot Z85.819 PRSNL HX OF MALIG NEOPLM OF UNSP SITE LI 12/28/2018 HAROLDO GUZMAN MD, Ot I70.0 ATHEROSCLEROSIS OF [place] 12/28/2018 HAROLDO GUZMAN MD, Ot I71.4 ABDOMINAL AORTIC ANEURYSM, WITHOUT RUPTU 12/28/2018 HAROLDO GUZMAN MD, Ot M43.8X6 OTHER SPECIFIED DEFORMING DORSOPATHIES, 12/28/2018 HAROLDO GUZMAN MD, Ot Z85.118 PERSONAL HISTORY OF MALIGNANT NEOPLASM O 12/28/2018 HAROLDO GUZMAN MD, Ot Z85.89 PERSONAL HISTORY OF MALIGNANT NEOPLASM O 12/28/2018 SHU GALVIN, Jyoti VELÁSQUEZ Ot E78.5 HYPERLIPIDEMIA, UNSPECIFIED 12/28/2018 Jyoti IRELAND MD Ot I10 ESSENTIAL (PRIMARY) HYPERTENSION 12/28/2018 Jyoti IRELAND MD, Ot I25.10 ATHSCL HEART DISEASE OF [place] CORONARY 12/28/2018 Jyoti IRELAND MD, Ot Z01.810 ENCOUNTER FOR PREPROCEDURAL CARDIOVASCUL 12/28/2018 Jyoti IRELAND MD, Ot Z72.0 TOBACCO USE 12/28/2018 HAROLDO GUZMAN MD, Ot 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 NEOPLASM OF UPPER LOBE, LEFT B 12/28/2018 HAROLDO GUZMAN MD, Ot I71.4 ABDOMINAL AORTIC ANEURYSM, WITHOUT RUPTU 12/28/2018 HAROLDO GUZMAN MD, Ot 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 12/28/2018 HAROLDO GUZMAN MD, Ot C34.11 MALIGNANT NEOPLASM OF UPPER LOBE, RIGHT 12/28/2018 HAROLDO GUZMAN MD, Ot 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 NEOPLASM OF UPPER LOBE, LEFT B 12/28/2018 HAROLDO GUZMAN MD, Ot E11.9 TYPE 2 DIABETES MELLITUS WITHOUT COMPLIC 12/28/2018 HAROLDO GUZMAN MD, Ot E53.8 DEFICIENCY OF OTHER SPECIFIED B GROUP 12/28/2018 HAROLDO GUZMAN MD Ot F17.210 NICOTINE DEPENDENCE, CIGARETTES, UNCOMPL 12/28/2018 HAROLDO GUZMAN MD, Ot F43.10 POST-TRAUMATIC STRESS DISORDER, UNSPECIF 12/28/2018 HAROLDO GUZMAN MD, Ot I11.0 HYPERTENSIVE HEART DISEASE WITH HEART FA 12/28/2018 HAROLDO GUZMAN MD, Ot I25.10 ATHSCL HEART DISEASE OF [place] CORONARY 12/28/2018 HAROLDO GUZMAN MD, Ot I50.32 CHRONIC DIASTOLIC (CONGESTIVE) HEART ELIZABETH 12/28/2018 HAROLDO GUZMAN MD, Ot I70.0 ATHEROSCLEROSIS OF [place] 12/28/2018 HAROLDO GUZMAN MD, Ot I71.4 ABDOMINAL AORTIC ANEURYSM, WITHOUT RUPTU 12/28/2018 HAROLDO GUZMAN MD, Ot J44.9 CHRONIC OBSTRUCTIVE PULMONARY DISEASE, U 12/28/2018 HAROLDO GUZMAN MD Ot M43.8X6 OTHER SPECIFIED DEFORMING DORSOPATHIES, 12/28/2018 HAROLDO GUZMAN MD, Ot Z79.899 OTHER DETENTION (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 12/28/2018 HAROLDO GUZMAN MD, Ot 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, 12/28/2018 HAROLDO GUZMAN MD, Ot Z85.830 PERSONAL HISTORY OF MALIGNANT NEOPLASM O 12/28/2018 HAROLDO GUZMAN MD, Ot Z85.89 PERSONAL HISTORY OF MALIGNANT NEOPLASM O 12/28/2018 HAROLDO GUZMAN MD, Ot Z92.21 PERSONAL HISTORY OF ANTINEOPLASTIC CHEMO 12/28/2018 HAROLDO GUZMAN MD, Ot Z92.3 PERSONAL HISTORY OF IRRADIATION 01/06/2019 JAIME PAZ DO Ot Z01.818 ENCOUNTER FOR OTHER PREPROCEDURAL EXAMIN 01/07/2019 JAIME PAZ DO Ot Z01.818 ENCOUNTER FOR OTHER PREPROCEDURAL EXAMIN Procedures There is no data. Results Test Result Range Automated blood complete blood count (hemogram) panel - 10/17/16 07:20 Blood leukocytes automated count (number/volume) 8.4 10*3/uL 4.3-11.0 Blood erythrocytes automated count (number/volume) 4.98 10*6/uL 4.35-5.85 Venous blood hemoglobin measurement (mass/volume) 15.2 g/dL 13.3-17.7 Blood hematocrit (volume fraction) 44 % 40-54 Automated erythrocyte mean corpuscular volume 89 [foz_us] 80-99 Automated erythrocyte mean corpuscular hemoglobin (mass per erythrocyte) 31 pg 25-34 Automated erythrocyte mean corpuscular hemoglobin concentration measurement (mass/volume) 34 g/dL 32-36 Automated erythrocyte distribution width ratio 14.2 % 10.0- 14.5 Automated blood platelet count (count/volume) 166 10*3/uL 130-400 Automated blood platelet mean volume measurement 10.5 [foz_us] 7.4-10.4 PT panel in platelet poor plasma by coagulation assay - 10/17/16 07:20 Prothrombin time (PT) in platelet poor plasma by coagulation assay 13.3 s 12.2-14.7 INR in platelet poor plasma or blood by coagulation assay 1.0 0.8-1.4 Activated partial thromboplastin time (aPTT) in platelet poor plasma bycoagulation assay - 10/17/16 07:20 Activated partial thromboplastin time (aPTT) in platelet poor plasma bycoagulation assay 27 s 24-35 Automated blood complete blood count (hemogram) panel - 12/24/16 10:44 Blood leukocytes automated count (number/volume) 10.1 10*3/uL 4.3-11.0 Blood erythrocytes automated count (number/volume) 5.31 10*6/uL 4.35-5.85 Venous blood hemoglobin measurement (mass/volume) 15.6 g/dL 13.3-17.7 Blood hematocrit (volume fraction) 46 % 40-54 Automated erythrocyte mean corpuscular volume 87 [foz_us] 80-99 Automated erythrocyte mean corpuscular hemoglobin (mass per erythrocyte) 29 pg 25-34 Automated erythrocyte mean corpuscular hemoglobin concentration measurement (mass/volume) 34 g/dL 32-36 Automated erythrocyte distribution width ratio 14.1 % 10.0- 14.5 Automated blood platelet count (count/volume) 194 10*3/uL 130-400 Automated blood platelet mean volume measurement 10.0 [foz_us] 7.4-10.4 PT panel in platelet poor plasma by coagulation assay - 12/24/16 10:44 Prothrombin time (PT) in platelet poor plasma by coagulation assay 12.6 s 12.2-14.7 INR in platelet poor plasma or blood by coagulation assay 1.0 0.8-1.4 Activated partial thromboplastin time (aPTT) in platelet poor plasma bycoagulation assay - 12/24/16 10:44 Activated partial thromboplastin time (aPTT) in platelet poor plasma bycoagulation assay 28 s 24-35 Encounters ACCT No. Visit Date/Time Discharge Status Pt. Type Provider Facility Loc./Unit Complaint [id number] 01/07/2019 14:30:00 01/07/2019 14:45:00 DIS Outpatient JAIME PAZ DO [facility] PREOP COLONOSCOPY [id number] 11/16/2018 00:12:00 11/16/2018 23:59:59 CLS Preadmit THOMAS GALVIN, HAROLDO [facility] ONC [id number] 11/09/2018 13:53:00 11/15/2018 00:01:00 DIS Outpatient HAROLDO GUZMAN MD [facility] ONC [id number] 11/05/2018 08:26:00 11/05/2018 23:59:59 CLS Outpatient HAROLDO GUZMAN MD [facility] RAD LUNG CANCER UPPER LOBE [id number] 02/02/2018 13:36:00 02/02/2018 23:59:59 CLS Outpatient HAROLDO GUZMAN MD [facility] ONC [id number] 12/18/2017 06:51:00 12/18/2017 23:59:59 CLS Outpatient Jyoti IRELAND MD [facility] CARD CAD [id number] 12/15/2017 12:39:00 12/15/2017 23:59:59 CLS Preadmit Jyoti IRELAND MD [facility] CARD CAD [id number] 11/18/2017 14:10:00 11/24/2017 00:01:00 DIS Outpatient HAROLDO GUZMAN MD [facility] ONC [id number] 11/21/2017 16:01:00 11/21/2017 23:59:59 CLS Outpatient HAROLDO GUZMAN MD [facility] RAD M54.5 LOW BACK PAIN [id number] 11/11/2017 09:48:00 11/11/2017 23:59:59 CLS Outpatient HAROLDO GUZMAN MD [facility] 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 [id number] 10/03/2017 10:34:00 10/03/2017 10:49:00 DIS Emergency HUBERT CASANOVA APRN [facility] ER RT EAR DRAINAGE/HARD OF HEARING PT [id number] 06/03/2017 14:23:00 07/28/2017 00:01:00 DIS Outpatient HAROLDO GUZMAN MD [facility] ONC [id number] 05/28/2017 11:49:00 05/28/2017 23:59:59 CLS Outpatient HAROLDO GUZMAN MD [facility] 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 [id number] 02/20/2017 10:00:00 02/25/2017 11:45:00 DIS Outpatient JOSE SAWYER MD [facility] ONC [id number] 12/24/2016 10:25:00 12/24/2016 17:25:00 DIS Outpatient JOSE SAWYER MD [facility] RAD R91.8 [id number] 10/17/2016 06:53:00 10/17/2016 23:59:59 CLS Outpatient SHANNAN BEAVERS MD [facility] RAD D38.1 [id number] 10/14/2016 11:25:00 10/14/2016 23:59:59 CLS Outpatient FLOYD RICHARDS MD [facility] RAD RT EYE INTERMITTENT PTOSIS [id number] 10/08/2016 10:43:00 10/08/2016 23:59:59 CLS Outpatient SHANNAN BEAVERS MD [facility] RAD D38.1 [id number] 01/12/2019 10:00:00 PEN Preadmit JAIME PAZ DO [facility] ENDO +FIT TEST/HX POLYPS
[2019-01-12] MEDS ORDERED: LACTATED RINGERS 1,000 ML IV ONE (08:50)
[2019-01-12 09:00] VITALS: BP 160/87
--- NOTE | 2019-01-12 09:25 | Progress Note-Pre Operative ---
Pre-Operative Progress Note H&P Reviewed The H&P was reviewed, patient examined and no changes noted. Date Seen by Provider: Jan 12, 2019 Time Seen by Provider: : Date H&P Reviewed: Jan 12, 2019 Time H&P Reviewed: :25 Pre-Operative Diagnosis: +fit, hx polyps JAIME PAZ DO Jan 12, 2019 09:25
[2019-01-12] MEDS ORDERED: PSYL368P4 PO (09:35)
[2019-01-12] MEDS ORDERED: DIVA-76 PO (09:35)
[2019-01-12] MEDS ORDERED: OMEP20CA12 PO (09:35)
[2019-01-12] MEDS ORDERED: SIMV40TA4 PO (09:35)
[2019-01-12] MEDS ORDERED: METO50TA15 PO (09:35)
[2019-01-12] MEDS ORDERED: MELA3TAB PO (09:35)
[2019-01-12] MEDS ORDERED: SERT25TA5 PO (09:35)
[2019-01-12] MEDS ORDERED: PRAZ2CAP2 PO (09:35)
[2019-01-12] MEDS ORDERED: PROPOFOL INJECTION 50 ML IV ONE (11:17)
[2019-01-12 11:35] VITALS: BP 175/94
--- NOTE | 2019-01-12 11:54 | Progress Note-Post Operative ---
Post-Operative Progess Note Surgeon (s)/Shoe Lacer (s) Surgeon AJIME PAZ DO Shoe Lacer: NA Pre-Operative Diagnosis +fit, hx polyps Post-Operative Diagnosis COLON POLYPS, RECTAL INFLAMMATION Procedure & Operative Findings Date of Procedure 01/12/19 Procedure Performed/Findings COLONOSCOPY C HOT BX POLYPECTOMY X 5, AND RECTAL COLD BIOPSY Anesthesia Type PER HAZMAT TECHNICIAN Estimated Blood Loss Estimated blood loss (mL): NONE Specimens/Packing Specimens Removed COLON POLYPS X 5 AND RECTAL BX JAIME PAZ DO Jan 12, 2019 11:54
--- NOTE | 2019-01-12 11:55 | Discharge Inst-Simple/Standard ---
Discharge Inst-Standard Patient Instructions/Follow Up Plan of Care/Instructions/FU: 2 WEEKS BRANDI Activity as Tolerated: Yes Discharge Diet: Regular Diet JAIME PAZ DO Jan 12, 2019 11:55
[2019-01-12 12:05] VITALS: BP 153/87
--- NOTE | 2019-01-12 12:14 | Anesthesia-General Post-Op ---
MAC Patient Condition Mental Status/LOC: Same as Preop Cardiovascular: Satisfactory Nausea/Vomiting: Absent Respiratory: Satisfactory Pain: Controlled Complications: Absent Post Op Complications Complications None Follow Up Care/Instructions Patient Instructions None needed. Anesthesiology Discharge Order Discharge Order Patient is doing well, no complaints, stable vital signs, no apparent adverse anesthesia problems. No complications reported per nursing. HAL PATEL CRNA Jan 12, 2019 12:14
[2019-01-12 12:25] VITALS: BP 153/87
--- NOTE | 2019-01-12 16:22 | OPERATIVE REPORT ---
DATE OF SERVICE: 01/12/2019 PREOPERATIVE DIAGNOSES: Positive FIT test and history of polyps. POSTOPERATIVE DIAGNOSES: Colon polyps, rectal inflammation. PROCEDURE: Colonoscopy with hot biopsy polypectomy x5, rectal cold biopsy. SURGEON: Jaime Taylor DO ANESTHESIA: Per [employer]. ESTIMATED BLOOD LOSS: None. COMPLICATIONS: None. INDICATIONS: The patient is a 73-year-old male with a positive FIT test and history of polyps. He understands risks and benefits of procedure and wished to proceed with procedure. Consent was signed in the chart. PROCEDURE IN DETAIL: The patient was taken to the endoscopy suite, placed in a left lateral recumbent position. Timeout was performed. Digital rectal exam was performed. There were no palpable polyps, masses or ulcerations. Scope was inserted in the rectum and advanced all the way to the cecum with minimal difficulty. prep was adequate. In the cecum, there were 2 small polyps, which hot biopsy polypectomy was performed on these. Scope was then continued to be slowly retracted back. In the ascending colon, there are 2 small polyps, which hot biopsy polypectomy was performed on both of these. Scope was continued to be slowly retracted back. There were no polyps, mass or ulcerations within the transverse and descending colon. Within the sigmoid colon, a small polyp was present, which hot biopsy polypectomy was performed. Scope was continued to be slowly retracted back into the rectum where it was retroflexed noting no pathology on retroflexion when scope was returned to its normal position. There was some erythematous inflammation in both consistent with rectal inflammation. Cold biopsy of this area was obtained. Scope was then slowly retracted back until completely removed. The patient tolerated the procedure well without any complications. He was taken to recovery room in stable condition. RECOMMENDATIONS: The patient will follow up in office in two weeks to discuss pathology results. The patient recommended repeat colonoscopy in three years for reevaluation. If any issues before that, he will be seen at that time. Job ID: [id number] DocumentID: [id number] Dictated Date: 01/12/2019 11:58:33 Family Preservation Caseworker Date: 01/12/2019 16:21:50 Dictated By: JAIME TAYLOR DO
== END 2019-01-12 12:30 | disposition home or self-care (01) ==
LOC: ENDO 08:43
PROVIDERS: ATTEND Surgery
DX: D12.0 Benign neoplasm of cecum (principal); D12.2 Benign neoplasm of ascending colon; D12.5 Benign neoplasm of sigmoid colon; K62.89 Other specified diseases of anus and rectum; Z86.010 Personal history of colon polyps; C34.11 Malignant neoplasm of upper lobe, right bronchus or lung; I25.10 Atherosclerotic heart disease of native coronary artery without angina pectoris; I10 Essential (primary) hypertension; F17.210 Nicotine dependence, cigarettes, uncomplicated; K21.9 Gastro-esophageal reflux disease without esophagitis; E03.9 Hypothyroidism, unspecified; Z79.82 Long term (current) use of aspirin; Z79.899 Other long term (current) drug therapy; Z95.5 Presence of coronary angioplasty implant and graft

== ENCOUNTER 2019-05-10 13:55 | Outpatient (RCR) | payer OTHER ==
[~2019-05-10 13:55] MED LIST changes: +DIVA-76 PO; +MELA3TAB PO; +METO50TA15 PO; +OMEP20CA13 PO; +PRAZ2CAP2 PO; +PSYL368P4 PO; +SERT25TA5 PO; +SIMV40TA4 PO
[2019-05-10 14:39] LABS: BASOPHILS % (AUTO) 0 % (0-10); EOSINOPHILS % (AUTO) 12 % (0-10); HEMATOCRIT 44 % (40-54); HEMOGLOBIN 14.7 G/DL (13.3-17.7); LYMPHOCYTES # (AUTO) 1.5 X 10^3 (1.0-4.0); LYMPHOCYTES % (AUTO) 19 % (12-44); MEAN CORPUSCULAR HEMOGLOBIN 29 PG (25-34); MEAN CORPUSCULAR HGB CONC 33 G/DL (32-36); MEAN CORPUSCULAR VOLUME 86 FL (80-99); MEAN PLATELET VOLUME 9.9 FL (7.4-10.4); MONOCYTES # (AUTO) 1.2 X 10^3 (0.0-1.0); MONOCYTES % (AUTO) 15 % (0-12); NEUTROPHILS # (AUTO) 4.4 X 10^3 (1.8-7.8); NEUTROPHILS % (AUTO) 54 % (42-75); PLATELET COUNT 230 10^3/uL (130-400); RED CELL DISTRIBUTION WIDTH 14.9 % (10.0-14.5); WHITE BLOOD COUNT 8.2 10^3/uL (4.3-11.0)
[2019-05-10 14:57] LABS: ALANINE AMINOTRANSFERASE 13 U/L (0-55); ALBUMIN 3.3 GM/DL (3.2-4.5); ALKALINE PHOSPHATASE 71 U/L (40-136); BILIRUBIN,TOTAL 0.4 MG/DL (0.1-1.0); BUN/CREATININE RATIO 15; CALCIUM 8.6 MG/DL (8.5-10.1); CARBON DIOXIDE 27 MMOL/L (21-32); CHLORIDE 99 MMOL/L (98-107); CREATININE SERUM 0.67 MG/DL (0.60-1.30); GFR ESTIMATED > 60; GLUCOSE 95 MG/DL (70-105); POTASSIUM 4.6 MMOL/L (3.6-5.0); SODIUM 134 MMOL/L (135-145); TOTAL PROTEIN 6.5 GM/DL (6.4-8.2)
[2019-07-08] MEDS ORDERED: AMOX-358 PO (19:59)
[2019-07-08] MEDS ORDERED: HYDR-4226 PO (19:59)
== END 2019-08-08 | disposition home or self-care (01) ==
LOC: ONC 13:55
PROVIDERS: ATTEND Internal Medicine Hematology & Oncology
DX: C34.12 Malignant neoplasm of upper lobe, left bronchus or lung (principal); C34.11 Malignant neoplasm of upper lobe, right bronchus or lung; C09.8 Malignant neoplasm of overlapping sites of tonsil; I25.10 Atherosclerotic heart disease of native coronary artery without angina pectoris; I11.0 Hypertensive heart disease with heart failure; I50.32 Chronic diastolic (congestive) heart failure; J44.9 Chronic obstructive pulmonary disease, unspecified; E11.9 Type 2 diabetes mellitus without complications; F43.10 Post-traumatic stress disorder, unspecified; E53.8 Deficiency of other specified B group vitamins; Z85.818 Personal history of malignant neoplasm of other sites of lip, oral cavity, and pharynx; Z85.830 Personal history of malignant neoplasm of bone; Z92.21 Personal history of antineoplastic chemotherapy; Z92.3 Personal history of irradiation; Z79.899 Other long term (current) drug therapy; M43.8X6 Other specified deforming dorsopathies, lumbar region; I71.4 Abdominal aortic aneurysm, without rupture; I70.0 Atherosclerosis of aorta; Z85.89 Personal history of malignant neoplasm of other organs and systems; F17.210 Nicotine dependence, cigarettes, uncomplicated; Z72.0 Tobacco use; C79.51 Secondary malignant neoplasm of bone
CPT/HCPCS: 36415; 80053; 85025; 99213

== ENCOUNTER 2019-07-08 17:16 | Emergency (ER) | payer MEDICARE, OTHER ==
[~2019-07-08] VITALS: Ht 170 cm; Wt 73.6 kg
--- NOTE | 2019-07-08 17:55 | ED Lower Extremity ---
General Chief Complaint: Lower Extremity Stated Complaint: BILAT LEG PAIN Nursing Triage Note: PT REPORTS WAS SENT TO THIS ED BY DR HURD AFTER HAVING AN ULTRASOUND OF HIS LOWER EXTREMITIES. Nursing Sepsis Screen: No Definite Risk Source: patient Exam Limitations: no limitations History of Present Illness Date Seen by Provider: Jul 08, 2019 Time Seen by Provider: 17:53 Initial Comments To ER with reports of bilateral lower extremity redness and pain for the past month been progressively worse. An outpatient ultrasound today, Dr. Hurd read this and referred him to the emergency room. Onset: just prior to arrival Severity: moderate Pain/Injury Location: bilateral leg Method of Injury: unknown Modifying Factors: Worse With Movement Allergies and Home Medications Allergies Coded Allergies: No Known Drug Allergies (Unverified , 10/14/16) Home Medications Amoxicillin/Potassium Clav 1 Each Tablet, 1 EACH PO BID Prescribed by: HUBERT CASANOVA on 07/08/191958 Aspirin 81 Mg Tablet.dr, 81 MG PO DAILY, (Reported) Divalproex Sodium 500 Mg Tablet.dr, 2 TAB PO HS, (Reported) Hydrocodone/Acetaminophen 1 Each Tablet, 1 TAB PO Q4-6HR Prescribed by: HUBERT CASANOVA on 07/08/191958 Melatonin 3 Mg Tablet, 3 MG PO HS, (Reported) Metoprolol Tartrate 50 Mg Tablet, 50 MG PO BID, (Reported) Omeprazole 20 Mg Capsule.dr, 20 MG PO DAILY, (Reported) Prazosin HCl 2 Mg Capsule, 2 MG PO TID, (Reported) Psyllium Seed (with Sugar) 368 Gm Powder, 368 GM PO DAILY, (Reported) Sertraline HCl 25 Mg Tablet, 25 MG PO DAILY, (Reported) Simvastatin 40 Mg Tablet, 0.5 TAB PO HS, (Reported) Patient Home Medication List Home Medication List Reviewed: Yes Review of Systems Constitutional: see HPI EENTM: see HPI Respiratory: no symptoms reported Cardiovascular: no symptoms reported Genitourinary: no symptoms reported Musculoskeletal: see HPI Skin: no symptoms reported Psychiatric/Neurological: No Symptoms Reported Past Xpnznez-Pbberb-Gykdpw Hx Patient Social History Alcohol Use: Denies Use Recreational Drug Use: No Smoking Status: Current Everyday Smoker Type Used: Cigarettes Recent Foreign Travel: No Contact w/Someone Who Travel: No Recent Infectious Disease Expo: No Recent Hopitalizations: No Immunizations Up To Date PED Vaccines UTD: No Seasonal Allergies Seasonal Allergies: No Past Medical History Surgeries: Yes (47 OPERATIONS total, R leg amputation) Coronary Stent Respiratory: Yes (lung cancer) Cardiac: Yes (STENTS, CABG) Coronary Artery Disease, Heart Attack, High Cholesterol, Hypertension Neurological: Yes TIA Genitourinary: No Gastrointestinal: Yes (+fit test) Polyps Musculoskeletal: Yes (R leg amputation r/t chondrosarcoma) Arthritis Endocrine: Yes (diabetic prior to wt loss) Hypothyroidsim HEENT: Yes (cataracts removed, ) Macular Degeneration Cancer: Yes (THROAT) Lung, Skin Did You Recieve Any Treatments: Yes What Type of Treatment Did You: Chemotherapy, Radiation, Surgical Intervention Psychosocial: Yes PTSD Integumentary: No Blood Disorders: No Physical Exam Vital Signs Vital Signs - First Documented 07/08/19 17:20 Temp 36.6 Pulse 85 Resp 20 B/P (MAP) 144/87 (106) Pulse Ox 99 O2 Delivery Room Air Capillary Refill : Less Than 3 Seconds Height, Weight, BMI Height: 5'7.00" Weight: 150lbs. 0.0oz. [id number]; 25.00 BMI Method:Estimated General Appearance: WD/WN, no apparent distress HEENT: PERRL/EOMI, normal ENT inspection Respiratory: no respiratory distress, no accessory muscle use Hips: bilateral hip non-tender, bilateral hip normal inspection, bilateral hip normal range of motion Legs: bilateral leg non-tender, bilateral leg normal inspection, bilateral leg normal range of motion Knees: bilateral knee normal range of motion, bilateral knee other (each lower extremity from the knee distally is slightly swollen and erythematous. It is tender to touch. There is capillary refill albeit a little bit delayed about 3-4 seconds of the right great toe and normal capillary refill less than 3 seconds of the left great toe. Because of the swelling, unable to palpate a dorsalis pedis pulse on either foot but I am able to easily Doppler blood flow in the dorsalis pedis artery on each foot and the posterior tibial artery bilatearlly using the bedside ultrasound.) Ankles: bilateral ankle non-tender, bilateral ankle normal inspection, bilateral ankle normal range of motion Feet: bilateral foot non-tender, bilateral foot normal inspection, bilateral foot normal range of motion Neurologic/Psychiatric: alert, normal mood/affect, oriented x 3 Skin: normal color, warm/dry Progress/Results/Core Measures Results/Orders Lab Results Laboratory Tests Test 07/08/19 17:45 Range/Units White Blood Count 6.1 4.3-11.0 10^3/uL Red Blood Count 5.00 4.35-5.85 10^6/uL Hemoglobin 14.8 13.3-17.7 G/DL Hematocrit 43 40-54 % Mean Corpuscular Volume 86 80-99 FL Mean Corpuscular Hemoglobin 30 25-34 PG Mean Corpuscular Hemoglobin Concent 34 32-36 G/DL Red Cell Distribution Width 15.9 H 10.0-14.5 % Platelet Count 168 130-400 10^3/uL Mean Platelet Volume 9.9 7.4-10.4 FL Neutrophils (%) (Auto) 62 42-75 % Lymphocytes (%) (Auto) 14 12-44 % Monocytes (%) (Auto) 14 H 0-12 % Eosinophils (%) (Auto) 11 H 0-10 % Basophils (%) (Auto) 0 0-10 % Neutrophils # (Auto) 3.8 1.8-7.8 X 10^3 Lymphocytes # (Auto) 0.9 L 1.0-4.0 X 10^3 Monocytes # (Auto) 0.8 0.0-1.0 X 10^3 Eosinophils # (Auto) 0.6 H 0.0-0.3 10^3/uL Basophils # (Auto) 0.0 0.0-0.1 10^3/uL Erythrocyte Sedimentation Rate 1 0-30 MM/HR Sodium Level 133 L 135-145 MMOL/L Potassium Level 4.0 3.6-5.0 MMOL/L Chloride Level 98 98-107 MMOL/L Carbon Dioxide Level 27 21-32 MMOL/L Anion Gap 8 5-14 MMOL/L Blood Urea Nitrogen 8 7-18 MG/DL Creatinine 0.75 0.60-1.30 MG/DL Estimat Glomerular Filtration Rate > 60 BUN/Creatinine Ratio 11 Glucose Level 127 H 70-105 MG/DL Uric Acid 4.9 2.6-7.2 MG/DL Calcium Level 8.6 8.5-10.1 MG/DL Corrected Calcium 8.9 8.5-10.1 MG/DL Total Bilirubin 0.4 0.1-1.0 MG/DL Aspartate Amino Transf (AST/SGOT) 26 5-34 U/L Alanine Aminotransferase (ALT/SGPT) 14 0-55 U/L Alkaline Phosphatase 74 40-136 U/L Total Protein 6.6 6.4-8.2 GM/DL Albumin 3.6 3.2-4.5 GM/DL My Orders Orders - HUBERT CASANOVA APRN Cbc With Automated Diff (07/08/19 17:46) Comprehensive Metabolic Panel (07/08/19 17:46) Erythrocyte Sedimentation Rate (07/08/19 17:46) Uric Acid (07/08/19 17:46) Ed Iv/Invasive Line Start (07/08/19 17:46) Oxycodone/Apap 5/325mg Tablet (Percocet (07/08/19 18:00) Ceftriaxone For Iv Use (Rocephin For I (07/08/19 18:15) Cta Aorta W Karly Runoff W/Wo (07/08/19 18:31) Water (Sterile) For Injection (Sterile W (07/08/19 18:30) Iohexol Injection (Omnipaque 350 Mg/Ml 1 (07/08/19 18:45) Received Contrast (Hold Metformin- Contr (07/08/19 18:45) Sodium Chloride Flush (Catheter Flush Sy (07/08/19 18:45) Ns (Ivpb) (Sodium Chloride 0.9% Ivpb Bag (07/08/19 18:45) Rx-Hydrocodone/Apap 5-325 Mg (Rx-Vicodin (07/08/19 20:05) Iv Push Plate Hanger Ed (07/08/19 ) Medications Given in ED Vital Signs/I&O 07/08/19 07/08/19 17:20 20:09 Temp 36.6 36.6 Pulse 85 85 Resp 20 20 B/P (MAP) 144/87 (106) 144/87 (106) Pulse Ox 99 99 O2 Delivery Room Air Room Air Blood Pressure Mean: 106 POS Diagnostic Imaging Diagonstic Imaging: CT Comments NAME: DIAZ MICHAELS [facility] REC#: [id number] PT STATUS: REG ER : 1945 PHYSICIAN: HUBERT CASANOVA APRN ADMIT DATE: 07/08/19/ER Signed POSDate of Exam:07/08/19 CTA AORTA W KARLY RUNOFF W/WO EXAMINATION: CT angiography aorta and lower extremity with runoffs. TECHNIQUE: Multiple contiguous axial images were obtained through the abdomen , pelvis and lower extremities after administration of intravenous contrast. 3D MIP reconstructed CTA acquisition were then performed. All CT scans use one or more of the following dose optimizing techniques: automated exposure control, MA and/or KvP adjustment based on a patient size and exam type, or iterative reconstruction. HISTORY: Bilateral leg pain COMPARISON: None available. FINDINGS: Vascular findings: Abdominal aorta: There is a 6.9 x 6.6 cm infrarenal abdominal aortic aneurysm with a large amount of mural thrombus. Incidental note is made of a retroaortic left renal vein. Celiac artery: No stenosis. Superior mesenteric artery: No stenosis. Right renal artery: No stenosis. Left renal artery: No stenosis. Inferior mesenterica artery: No stenosis. Right common iliac artery: Aneurysmal measuring 2.6 cm. Right external iliac artery: Moderate stenosis Right common femoral artery: Severe stenosis Right superficial femoral artery: Multifocal severe stenosis due to calcified and noncalcified plaque. Distal vessel is likely occluded. Right deep femoral artery: Severely stenotic Right popliteal artery: Occluded (the popliteal fossa is largely obscured by streak artifact). Right posterior tibial artery: Occluded Right anterior tibial artery: Patent with severe stenosis at its origin, the site of reconstitution is obscured by streak artifact. Right peroneal artery: Patent, with severe stenosis at its origin. Right ankle and foot vessels: Two-vessel runoff seen to the ankle with the dorsalis pedis supplied by the anterior tibial artery and the plantar artery supplied by collaterals. Left common iliac artery: Aneurysmal measuring up to 17 mm. Left external iliac artery: Severely stenotic at its origin with mild stenosis throughout its course. Left common femoral artery: No stenosis. Left superficial femoral artery: Occluded in its proximal portion. Reconstitutes in the distal thigh via collaterals. Left deep femoral artery: Moderate stenosis at its origin. Left popliteal artery: Multifocal areas of moderate stenosis due to calcified and noncalcified plaque. Left posterior tibial artery: Patent but diminutive Left anterior tibial artery: Patent but diminutive Left peroneal artery: Patent but diminutive Left ankle and foot vessels: There is three-vessel runoff to the left ankle with the dorsalis pedis supplied by the anterior tibial artery and the plantar artery supplied by the posterior tibial artery. Other findings: Limited views of the lower thorax are unremarkable. The liver is normal without focal lesion. There is no biliary ductal dilation. Gallbladder is not seen. Pancreas is normal. Spleen is normal. Adrenal glands are normal. The kidneys are normal. There is no hydronephrosis. Urinary bladder is normal. There are no dilated loops of large or small bowel. No obstruction or inflammation. No free fluid or air. No abdominal or pelvic lymphadenopathy. There have been vertebroplasty of L3. There is a right total hip arthroplasty with a right femur prosthesis and a right total knee arthroplasty. IMPRESSION: 1. Large infrarenal abdominal aortic aneurysm measuring up to 6.9 cm and extending into both common iliac arteries. 2. Severe bilateral lower extremity vascular disease with occlusion of both superficial femoral arteries as detailed above. Dictated by: Dictated on workstation # [id number] Dict: 07/08/191918 Trans: 07/08/191941 [facility] [id number] Interpreted by: ANITA RODRIGUEZ MD Electronically signed by: ANITA RODRIGUEZ MD 07/08/191941 Departure Communication (Admissions) [id number] discussed with Dr. Hurd directly who read his outpatient ultrasound, he was concerned because the patient complained of pain at rest that this may be limb threatening ischemia, he wanted the patient evaluated here in the emergency room. This is not immediately limb threatening ischemia. He has capillary refill of both feet, redness, both feet are warm to the touch, though they are tender. This has the appearance of cellulitis. Dr. Hurd would like to check labs, if creatinine is okay then we would get a CT aortogram with bilateral runoff's, treat for cellulitis and follow up with him outpatient next week. 1953-I discussed the CT with Dr. Hurd, would recommend discussing with vascular surgery regarding the aortic aneurysm, peripheral vascular disease can be treated here he has blood flow in the dorsalis pedis arteries bilateral, capillary refill of each lower extremity. He recommends discussing with vascular surgery given the aneurysm size. This is actually increased from 5.7 x 5.[address] done here in October of this year. He currently measures 6.9 x 6.6 cm infrarenal abdominal aortic aneurysm with a large amount of mural thrombus. Spoke with Dr. wSift at [facility] in [place]. He can see the patient tomorrow at 9 AM. I'll treat patient empirically with some Keflex for the cellul itis and some hydrocodone for pain control. Infrarenal aneurysm since it is not acutely symptomatic can wait until tomorrow at 9 AM. Impression Primary Impression: Peripheral arterial disease Additional Impression: Aneurysm of infrarenal abdominal aorta Disposition: 01 HOME, SELF-CARE Condition: Stable Departure-Patient Inst. Decision time for Depature: 19:57 Referrals: NO,LOCAL PHYSICIAN (PCP/Family) Primary Care Physician Patient Instructions: Aortic Aneurysm Repair (DC), Aortic Aneurysm (DC) Add. Discharge Instructions: 1. Antibiotics as directed starting tomorrow 2. Pain medication as directed 3. Follow-up with Dr. Wolf, vascular surgeon from [facility] in [place] tomorrow at 9 AM. Address: [address] [place] [address] All discharge instructions reviewed with patient and/or family. Voiced understanding. Scripts Hydrocodone/Acetaminophen ([place] 5-325 Tablet) 1 Each Tablet 1 TAB PO Q4-6HR for Pain MDD 10 TABS for 7 Days, #20 TAB Prov: HUBERT CASANOVA APRN 07/08/19 Amoxicillin/Potassium Clav (Augmentin 875-125 Tablet) 1 Each Tablet 1 EACH PO BID, #14 TAB Prov: HUBERT CASANOVA APRN 07/08/19 Copy Copies To 1: Jyoti HURD MD, PETER J APRN Jul 08, 2019 17:55 POS
[2019-07-08 17:59] LABS: BASOPHILS % (AUTO) 0 % (0-10); EOSINOPHILS # (AUTO) 0.6 10^3/uL (0.0-0.3); EOSINOPHILS % (AUTO) 11 % (0-10); HEMATOCRIT 43 % (40-54); HEMOGLOBIN 14.8 G/DL (13.3-17.7); LYMPHOCYTES # (AUTO) 0.9 X 10^3 (1.0-4.0); LYMPHOCYTES % (AUTO) 14 % (12-44); MEAN CORPUSCULAR HEMOGLOBIN 30 PG (25-34); MEAN CORPUSCULAR HGB CONC 34 G/DL (32-36); MEAN CORPUSCULAR VOLUME 86 FL (80-99); MEAN PLATELET VOLUME 9.9 FL (7.4-10.4); MONOCYTES # (AUTO) 0.8 X 10^3 (0.0-1.0); MONOCYTES % (AUTO) 14 % (0-12); NEUTROPHILS # (AUTO) 3.8 X 10^3 (1.8-7.8); NEUTROPHILS % (AUTO) 62 % (42-75); PLATELET COUNT 168 10^3/uL (130-400); RED CELL DISTRIBUTION WIDTH 15.9 % (10.0-14.5); WHITE BLOOD COUNT 6.1 10^3/uL (4.3-11.0)
[2019-07-08] MEDS ORDERED: oxyCODONE/APAP 5/325MG (PERCOCET 5) TABLET PO ONE (18:00)
[2019-07-08] MEDS ORDERED: cefTRIAXone FOR IV USE 1,000 MG in WATER (STERILE) FOR INJECTION 10 ML IV ONE (18:15)
[2019-07-08 18:19] LABS: ALANINE AMINOTRANSFERASE 14 U/L (0-55); ALBUMIN 3.6 GM/DL (3.2-4.5); ALKALINE PHOSPHATASE 74 U/L (40-136); BILIRUBIN,TOTAL 0.4 MG/DL (0.1-1.0); BUN/CREATININE RATIO 11; CALCIUM 8.6 MG/DL (8.5-10.1); CARBON DIOXIDE 27 MMOL/L (21-32); CHLORIDE 98 MMOL/L (98-107); CREATININE SERUM 0.75 MG/DL (0.60-1.30); GFR ESTIMATED > 60; GLUCOSE 127 MG/DL (70-105); SODIUM 133 MMOL/L (135-145); TOTAL PROTEIN 6.6 GM/DL (6.4-8.2); URIC ACID 4.9 MG/DL (2.6-7.2)
[2019-07-08 18:24] LABS: ERYTHROCYTE SEDIMENTATION RATE 1 MM/HR (0-30)
[2019-07-08] MEDS ORDERED: WATER (STERILE) FOR INJECTION 10 ML ONE (18:30)
[2019-07-08] MEDS ORDERED: IOHEXOL 350 MG/ML 100 ML (OMNIPAQUE 350) VIAL IV ONE (18:45)
[2019-07-08] MEDS ORDERED: NS 100 ML (IVPB) BAG IV ONE (18:45)
[2019-07-08] MEDS ORDERED: CATHETER FLUSH 10 ML SYR IV PRN (18:45)
[2019-07-08] MEDS ORDERED: HOLD METFORMIN - RECEIVED CONTRAST 20 ML VIAL IV SCH (18:45)
--- NOTE | 2019-07-08 19:33 | Diagnostic Imaging Report ---
EXAMINATION: CT angiography aorta and lower extremity with runoffs. TECHNIQUE: Multiple contiguous axial images were obtained through the abdomen , pelvis and lower extremities after administration of intravenous contrast. 3D MIP reconstructed CTA acquisition were then performed. All CT scans use one or more of the following dose optimizing techniques: automated exposure control, MA and/or KvP adjustment based on a patient size and exam type, or iterative reconstruction. HISTORY: Bilateral leg pain COMPARISON: None available. FINDINGS: Vascular findings: Abdominal aorta: There is a 6.9 x 6.6 cm infrarenal abdominal aortic aneurysm with a large amount of mural thrombus. Incidental note is made of a retroaortic left renal vein. Celiac artery: No stenosis. Superior mesenteric artery: No stenosis. Right renal artery: No stenosis. Left renal artery: No stenosis. Inferior mesenterica artery: No stenosis. Right common iliac artery: Aneurysmal measuring 2.6 cm. Right external iliac artery: Moderate stenosis Right common femoral artery: Severe stenosis Right superficial femoral artery: Multifocal severe stenosis due to calcified and noncalcified plaque. Distal vessel is likely occluded. Right deep femoral artery: Severely stenotic Right popliteal artery: Occluded (the popliteal fossa is largely obscured by streak artifact). Right posterior tibial artery: Occluded Right anterior tibial artery: Patent with severe stenosis at its origin, the site of reconstitution is obscured by streak artifact. Right peroneal artery: Patent, with severe stenosis at its origin. Right ankle and foot vessels: Two-vessel runoff seen to the ankle with the dorsalis pedis supplied by the anterior tibial artery and the plantar artery supplied by collaterals. Left common iliac artery: Aneurysmal measuring up to 17 mm. Left external iliac artery: Severely stenotic at its origin with mild stenosis throughout its course. Left common femoral artery: No stenosis. Left superficial femoral artery: Occluded in its proximal portion. Reconstitutes in the distal thigh via collaterals. Left deep femoral artery: Moderate stenosis at its origin. Left popliteal artery: Multifocal areas of moderate stenosis due to calcified and noncalcified plaque. Left posterior tibial artery: Patent but diminutive Left anterior tibial artery: Patent but diminutive Left peroneal artery: Patent but diminutive Left ankle and foot vessels: There is three-vessel runoff to the left ankle with the dorsalis pedis supplied by the anterior tibial artery and the plantar artery supplied by the posterior tibial artery. Other findings: Limited views of the lower thorax are unremarkable. The liver is normal without focal lesion. There is no biliary ductal dilation. Gallbladder is not seen. Pancreas is normal. Spleen is normal. Adrenal glands are normal. The kidneys are normal. There is no hydronephrosis. Urinary bladder is normal. There are no dilated loops of large or small bowel. No obstruction or inflammation. No free fluid or air. No abdominal or pelvic lymphadenopathy. There have been vertebroplasty of L3. There is a right total hip arthroplasty with a right femur prosthesis and a right total knee arthroplasty. IMPRESSION: 1. Large infrarenal abdominal aortic aneurysm measuring up to 6.9 cm and extending into both common iliac arteries. 2. Severe bilateral lower extremity vascular disease with occlusion of both superficial femoral arteries as detailed above. Dictated by: Dictated on workstation # [id number]
[2019-07-08] MEDS ORDERED: AMOX-358 PO (19:59)
[2019-07-08] MEDS ORDERED: HYDR-4226 PO (19:59)
[2019-07-08] MEDS ORDERED: RX-HYDROCODONE/APAP 5/325 MG #4 TAB PK PO ONE (20:05)
[2019-07-08 20:09] VITALS: BP 144/87
== END 2019-07-08 20:09 | disposition home or self-care (01) ==
LOC: EDUNIT# 17:16 → ER 17:18
DX: E11.51 Type 2 diabetes mellitus with diabetic peripheral angiopathy without gangrene (principal); I70.203 Unspecified atherosclerosis of native arteries of extremities, bilateral legs; I71.4 Abdominal aortic aneurysm, without rupture; I10 Essential (primary) hypertension; E78.00 Pure hypercholesterolemia, unspecified; I25.10 Atherosclerotic heart disease of native coronary artery without angina pectoris; I25.2 Old myocardial infarction; E03.9 Hypothyroidism, unspecified; F43.10 Post-traumatic stress disorder, unspecified; F17.210 Nicotine dependence, cigarettes, uncomplicated; Z85.828 Personal history of other malignant neoplasm of skin; Z85.818 Personal history of malignant neoplasm of other sites of lip, oral cavity, and pharynx; Z85.118 Personal history of other malignant neoplasm of bronchus and lung; Z79.82 Long term (current) use of aspirin; Z95.5 Presence of coronary angioplasty implant and graft; Z86.73 Personal history of transient ischemic attack (TIA), and cerebral infarction without residual deficits; Z95.1 Presence of aortocoronary bypass graft
CPT/HCPCS: 36415; 75635; 80053; 84550; 85025; 85652; 96374

== ENCOUNTER 2019-07-26 12:32 | Emergency (ER) | payer MEDICARE, OTHER ==
[~2019-07-26] VITALS: Ht 170.2 cm; Wt 59.1 kg
[~2019-07-26 12:32] MED LIST changes: +AMOX-358 PO; +HYDR-4226 PO
[2019-07-26] MEDS ORDERED: NS IV 500 ML 500 ML IV ONE (12:51)
--- NOTE | 2019-07-26 12:57 | ED GI ---
General Chief Complaint: Abdominal/GI Problems Stated Complaint: WEAKNESS Source of Information: Patient, EMS Exam Limitations: No Limitations History of Present Illness Date Seen by Provider: Jul 26, 2019 Time Seen by Provider: 12:33 Initial Comments Patient presents to ER by EMS from home with chief complaint for the past for 5 days been expressing some constipation so he started using suppositories. He uses 5 and the first day and then delivered a large stool that he thought was going to tear him. He did not have any bleeding. He says since then he's been having alternating constipation and loose watery stool is always been able to pass. He is having some general abdominal discomfort just below his umbilicus. He has no dysuria. About 12 days ago he had a series of stents placed in his aortic abdominal aneurysm. [facility] and [facility] phillips as well as Dr. Hurd. He says if he can position himself appropriately use fairly comfortable. He does use about one tablet of hydrocodone daily as needed for pain. He has a history of multiple surgeries from his back and neck to stomach ulcer repair is related to malnutrition after an appendectomy that resulted in a large intra- abdominal abscess. 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 He denies any fever or nausea. He is not having any chest pain shortness of breath or cough. Allergies and Home Medications Allergies Coded Allergies: No Known Drug Allergies (Unverified , 10/14/16) Home Medications Amoxicillin/Potassium Clav 1 Each Tablet, 1 EACH PO BID Prescribed by: HUBERT CASANOVA on 07/08/191958 Aspirin 81 Mg Tablet., 81 MG PO DAILY, (Reported) Divalproex Sodium 500 Mg Tablet.dr, 2 TAB PO HS, (Reported) Hydrocodone/Acetaminophen 1 Each Tablet, 1 TAB PO Q4-6HR Prescribed by: HUBERT CASANOVA on 07/08/191958 Melatonin 3 Mg Tablet, 3 MG PO HS, (Reported) Metoprolol Tartrate 50 Mg Tablet, 50 MG PO BID, (Reported) Omeprazole 20 Mg Capsule.dr, 20 MG PO DAILY, (Reported) Prazosin HCl 2 Mg Capsule, 2 MG PO TID, (Reported) Psyllium Seed (with Sugar) 368 Gm Powder, 368 GM PO DAILY, (Reported) Sertraline HCl 25 Mg Tablet, 25 MG PO DAILY, (Reported) Simvastatin 40 Mg Tablet, 0.5 TAB PO HS, (Reported) Patient Home Medication List Home Medication List Reviewed: Yes Review of Systems Review of Systems Constitutional: No chills, No diaphoresis EENTM: No Blurred Vision, No Double Vision Respiratory: Denies Cough, Denies Shortness of Air Cardiovascular: Denies Chest Pain, Denies Edema Gastrointestinal: See HPI; Denies Abdomen Distended; Abdominal Pain, Constipated, Diarrhea; Denies Nausea Genitourinary: Denies Burning, Denies Discharge Musculoskeletal: No back pain, No gout Skin: No change in color, No pruritus, No rash Psychiatric/Neurological: Denies Headache, Denies Numbness All Other Systems Reviewed Negative Unless Noted: Yes Past Ysvpnyo-Vuvlgs-Wcnozr Hx Patient Social History Alcohol Use: Denies Use Recreational Drug Use: No Smoking Status: Current Everyday Smoker Type Used: Cigarettes (0.5 ppd) Recent Hopitalizations: No Immunizations Up To Date PED Vaccines UTD: No Seasonal Allergies Seasonal Allergies: No Past Medical History Surgeries: Yes (47 OPERATIONS total, R leg amputation) Coronary Stent Respiratory: Yes (lung cancer) Cardiac: Yes (STENTS, CABG) Coronary Artery Disease, Heart Attack, High Cholesterol, Hypertension Neurological: Yes TIA Genitourinary: No Gastrointestinal: Yes (+fit test) Polyps Musculoskeletal: Yes (R leg amputation r/t chondrosarcoma) Arthritis Endocrine: Yes (diabetic prior to wt loss) Hypothyroidsim HEENT: Yes (cataracts removed, ) Macular Degeneration Cancer: Yes (THROAT) Lung, Skin Did You Recieve Any Treatments: Yes What Type of Treatment Did You: Chemotherapy, Radiation, Surgical Intervention Psychosocial: Yes PTSD Integumentary: No Blood Disorders: No Physical Exam Vital Signs Vital Signs - First Documented 07/26/19 12:32 Pulse 81 Resp 20 B/P (MAP) 142/86 (104) Pulse Ox 96 O2 Delivery Room Air Capillary Refill : Height/Weight/BMI Height: 5'7.00" Weight: 150lbs. 0.0oz. [id number]; 25.00 BMI Method:Estimated General Appearance: no apparent distress, thin HEENT: PERRL/EOMI, normal ENT inspection, pharynx normal (oropharynx is mildly dry) Neck: full range of motion, normal inspection Respiratory: lungs clear, normal breath sounds, no respiratory distress, no accessory muscle use Cardiovascular: normal peripheral pulses, regular rate, rhythm, no edema, no murmur Peripheral Pulses: 2+ Radial Pulses (R), 2+ Radial Pulses (L) Gastrointestinal: normal bowel sounds, soft, tenderness (suprapubic and in his right inguinal him from previous repair) Extremities: normal range of motion, normal capillary refill Neurologic/Psychiatric: alert, normal mood/affect, oriented x 3 Skin: other (. Skin around the surgical repair is closed, clean, dry and intact. There are some mild erythema at the top portion about 3 cm of his wound is not indurated or significant. No fluctuance. Tender to palpation.) Progress/Results/Core Measures Results/Orders Lab Results Laboratory Tests Test 07/26/19 12:45 07/26/19 12:57 Range/Units White Blood Count 5.3 4.3-11.0 10^3/uL Red Blood Count 3.70 L 4.35-5.85 10^6/uL Hemoglobin 10.8 L 13.3-17.7 G/DL Hematocrit 34 L 40-54 % Mean Corpuscular Volume 93 80-99 FL Mean Corpuscular Hemoglobin 29 25-34 PG Mean Corpuscular Hemoglobin Concent 32 32-36 G/DL Red Cell Distribution Width 16.7 H 10.0-14.5 % Platelet Count 373 130-400 10^3/uL Mean Platelet Volume 9.6 7.4-10.4 FL Neutrophils (%) (Auto) 62 42-75 % Lymphocytes (%) (Auto) 12 12-44 % Monocytes (%) (Auto) 18 H 0-12 % Eosinophils (%) (Auto) 7 0-10 % Basophils (%) (Auto) 0 0-10 % Neutrophils # (Auto) 3.3 1.8-7.8 X 10^3 Lymphocytes # (Auto) 0.6 L 1.0-4.0 X 10^3 Monocytes # (Auto) 1.0 0.0-1.0 X 10^3 Eosinophils # (Auto) 0.4 H 0.0-0.3 10^3/uL Basophils # (Auto) 0.0 0.0-0.1 10^3/uL Neutrophils % (Manual) 67 % Lymphocytes % (Manual) 8 % Monocytes % (Manual) 17 % Eosinophils % (Manual) 8 % Basophils % (Manual) 0 % Anisocytosis SLIGHT Sodium Level 136 135-145 MMOL/L Potassium Level 3.8 3.6-5.0 MMOL/L Chloride Level 102 98-107 MMOL/L Carbon Dioxide Level 24 21-32 MMOL/L Anion Gap 10 5-14 MMOL/L Blood Urea Nitrogen 5 L 7-18 MG/DL Creatinine 0.67 0.60-1.30 MG/DL Estimat Glomerular Filtration Rate > 60 BUN/Creatinine Ratio 7 Glucose Level 96 70-105 MG/DL Calcium Level 8.2 L 8.5-10.1 MG/DL Corrected Calcium 9.0 8.5-10.1 MG/DL Total Bilirubin 0.5 0.1-1.0 MG/DL Aspartate Amino Transf (AST/SGOT) 24 5-34 U/L Alanine Aminotransferase (ALT/SGPT) 15 0-55 U/L Alkaline Phosphatase 72 40-136 U/L Total Protein 5.7 L 6.4-8.2 GM/DL Albumin 3.0 L 3.2-4.5 GM/DL Lipase < 4 L 8-78 U/L Urine Color YELLOW Urine Clarity CLEAR Urine pH 8.5 5-9 Urine Specific [place] 1.020 1.016-1.022 Urine Protein NEGATIVE NEGATIVE Urine Glucose (UA) NEGATIVE NEGATIVE Urine Ketones TRACE H NEGATIVE Urine Nitrite NEGATIVE NEGATIVE Urine Bilirubin NEGATIVE NEGATIVE Urine Urobilinogen 0.2 < = 1.0 MG/DL Urine Leukocyte Esterase NEGATIVE NEGATIVE Urine RBC (Auto) TRACE-I NEGATIVE Urine RBC 2-5 H /HPF Urine WBC NONE /HPF Urine Squamous Epithelial Cells RARE /HPF Urine Crystals PRESENT H /LPF Urine Amorphous Sediment RARE [place] PHOSPHATE H /LPF Urine Bacteria TRACE /HPF Urine Casts NONE /LPF Urine Mucus SMALL H /LPF Urine Culture Indicated NO My Orders Orders - SHONDA ABDI Ed Iv/Invasive Line Start (07/26/19 12:51) Ns Iv 500 Ml (Sodium Chloride 0.9%) (07/26/19 12:51) Cbc With Automated Diff (07/26/19 12:51) Comprehensive Metabolic Panel (07/26/19 12:51) Lipase (07/26/19 12:51) Ua Culture If Indicated (07/26/19 12:57) Ct Abdomen/Pelvis W (07/26/19 12:57) Iohexol Injection (Omnipaque 350 Mg/Ml 1 (07/26/19 13:00) Received Contrast (Hold Metformin- Contr (07/26/19 13:00) Ns (Ivpb) (Sodium Chloride 0.9% Ivpb Bag (07/26/19 13:00) Manual Differential (07/26/19 12:45) Medications Given in ED Current Medications Medications Dose Ordered Sig/Latrell Route Start Time Stop Time Status Last Admin Dose Admin Iohexol 100 ml ONCE ONCE IV 07/26/19 13:00 07/26/19 13:05 DC 07/26/19 14:11 79 ML Sodium Chloride 100 ml ONCE ONCE IV 07/26/19 13:00 07/26/19 13:05 DC 07/26/19 14:11 80 ML Sodium Chloride 500 ml @ 0 mls/hr Q0M ONCE IV 07/26/19 12:51 07/26/19 12:52 DC 07/26/19 13:10 500 MLS/HR Vital Signs/I&O 07/26/19 12:32 Pulse 81 Resp 20 B/P (MAP) 142/86 (104) Pulse Ox 96 O2 Delivery Room Air Progress Progress Note : Time: 12:56 Progress Note Plan on getting a CT scan with IV contrast if possible of his abdomen and pelvis. Suspect that this represents constipation related to his opiate usage and possible dehydration. We'll give him a half liter fluids to start. Less likely this is related to his recent AAA repair. Diagnostic Imaging Diagonstic Imaging: CT Plain Films/CT/US/NM/MRI: abdomen, pelvis Comments [facility]. [place], [place] NAME: DIAZ MICHAELS [facility] REC#: [id number] PT STATUS: REG ER : 1945 PHYSICIAN: SHONDA ABDI MD ADMIT DATE: 07/26/19/ER Draft Date of Exam:07/26/19 CT ABDOMEN/PELVIS W PROCEDURE: CT abdomen and pelvis with contrast. TECHNIQUE: Multiple contiguous axial images were obtained through the abdomen and pelvis after administration of intravenous contrast. Auto Exposure Controls were utilized during the CT exam to meet ALARA standards for radiation dose reduction. INDICATION: Abdominal aortic aneurysm surgery approximately two weeks earlier. Patient now complains of diarrhea and constipation. Correlation is made with CT abdomen and pelvis from 11/05/2018. FINDINGS: The lung bases are clear. The liver and gallbladder are unremarkable. There is no biliary ductal dilatation. The pancreas and spleen are unremarkable. No adrenal mass is detected. Kidneys are unremarkable. Since prior study, patient has had an aortic stent graft placed into the infrarenal abdominal aortic aneurysm. Both limbs of the stent graft appear to be patent. Excluded aneurysm sac dimensions are 6.2 cm AP x 6.8 cm transverse. This compares with pre procedure measurements of 5.8 cm AP x 6.4 cm transverse. No definite evidence of endoleak is seen, however. No periaortic fluid collection is seen to suggest leakage or rupture. Small and large bowel loops are normal caliber. There is no obstruction. There is no free fluid or fluid collection. The bladder is unremarkable. There is a large amount of streak artifact in the pelvis from right hip prosthesis. There are kyphoplasty changes in the lumbar spine. IMPRESSION: Infrarenal abdominal aortic aneurysm treated with an endograft. Excluded aneurysm sac dimensions are larger than pre procedure measurements from October 2018 although no findings to suggest endoleak are identified. No acute abnormality is detected. Dictated on workstation # [id number] Dict: 07/26/19 1427 Trans: 07/26/19 1449 [id number] Interpreted by: PERCY LUA MD Electronically signed by: Reviewed: Reviewed by Me Departure Impression Primary Impression: Obstipation Disposition: 01 HOME, SELF-CARE Condition: Stable Departure-Patient Inst. Decision time for Depature: 15:14 Referrals: NO,LOCAL PHYSICIAN (PCP/Family) Primary Care Physician Patient Instructions: Constipation, Adult (DC) Add. Discharge Instructions: There is nothing dangerous seen in your blood work or CT scan from today. Based on her story suspect that you're constipation was quite a bit more endorsing today and that your suppositories have done the job and cleaned you out. You do not need to continue taking laxatives or suppositories at this time as you are cleaned out. Your symptoms should improve over the next day or so. Make sure drinking plenty of fluids. Return to the ER if you begin to experience fevers especially above 102.5, intractable abdominal pain or other worrisome symptoms. All discharge instructions reviewed with patient and/or family. Voiced unders tanding. SHONDA ABDI Jul 26, 2019 12:57
[2019-07-26] MEDS ORDERED: HOLD METFORMIN - RECEIVED CONTRAST 20 ML VIAL IV SCH (13:00)
[2019-07-26] MEDS ORDERED: NS 100 ML (IVPB) BAG IV ONE (13:00)
[2019-07-26] MEDS ORDERED: IOHEXOL 350 MG/ML 100 ML (OMNIPAQUE 350) VIAL IV ONE (13:00)
[2019-07-26 13:11] LABS: BILIRUBIN,URINE NEGATIVE (NEGATIVE); CLARITY,URINE CLEAR; COLOR,URINE YELLOW; GLUCOSE, URINE (UA) NEGATIVE (NEGATIVE); KETONES,URINE TRACE (NEGATIVE); LEUKOCYTE ESTERASE ,URINE NEGATIVE (NEGATIVE); NITRITE,URINE NEGATIVE (NEGATIVE); PH,URINE 8.5 (5-9); PROTEIN,URINE NEGATIVE (NEGATIVE)
[2019-07-26 13:16] LABS: BASOPHILS % (AUTO) 0 % (0-10); EOSINOPHILS # (AUTO) 0.4 10^3/uL (0.0-0.3); EOSINOPHILS % (AUTO) 7 % (0-10); HEMATOCRIT 34 % (40-54); HEMOGLOBIN 10.8 G/DL (13.3-17.7); LYMPHOCYTES # (AUTO) 0.6 X 10^3 (1.0-4.0); LYMPHOCYTES % (AUTO) 12 % (12-44); MEAN CORPUSCULAR HEMOGLOBIN 29 PG (25-34); MEAN CORPUSCULAR HGB CONC 32 G/DL (32-36); MEAN CORPUSCULAR VOLUME 93 FL (80-99); MEAN PLATELET VOLUME 9.6 FL (7.4-10.4); MONOCYTES % (AUTO) 18 % (0-12); NEUTROPHILS # (AUTO) 3.3 X 10^3 (1.8-7.8); NEUTROPHILS % (AUTO) 62 % (42-75); PLATELET COUNT 373 10^3/uL (130-400); RED CELL DISTRIBUTION WIDTH 16.7 % (10.0-14.5); WHITE BLOOD COUNT 5.3 10^3/uL (4.3-11.0)
[2019-07-26 13:27] LABS: AMORPHOUS SEDIMENT,UR RARE AMOR PHOSPHATE /LPF; BACTERIA,URINE TRACE /HPF; SQUAMOUS EPITHELIAL CELL,UR RARE /HPF
[2019-07-26 13:30] LABS: ALANINE AMINOTRANSFERASE 15 U/L (0-55); ALKALINE PHOSPHATASE 72 U/L (40-136); BILIRUBIN,TOTAL 0.5 MG/DL (0.1-1.0); BUN/CREATININE RATIO 7; CALCIUM 8.2 MG/DL (8.5-10.1); CARBON DIOXIDE 24 MMOL/L (21-32); CHLORIDE 102 MMOL/L (98-107); CREATININE SERUM 0.67 MG/DL (0.60-1.30); GFR ESTIMATED > 60; GLUCOSE 96 MG/DL (70-105); LIPASE < 4 U/L (8-78); POTASSIUM 3.8 MMOL/L (3.6-5.0); SODIUM 136 MMOL/L (135-145); TOTAL PROTEIN 5.7 GM/DL (6.4-8.2)
[2019-07-26 14:29] LABS: BASOPHILS % (MANUAL) 0 %; EOSINOPHILS % (MANUAL) 8 %; LYMPHOCYTES % (MANUAL) 8 %; MONOCYTES % (MANUAL) 17 %; NEUTROPHILS % (MANUAL) 67 %
[2019-07-26 14:30] LABS: ANISOCYTOSIS SLIGHT
--- NOTE | 2019-07-26 14:50 | Diagnostic Imaging Report ---
PROCEDURE: CT abdomen and pelvis with contrast. TECHNIQUE: Multiple contiguous axial images were obtained through the abdomen and pelvis after administration of intravenous contrast. Auto Exposure Controls were utilized during the CT exam to meet ALARA standards for radiation dose reduction. INDICATION: Abdominal aortic aneurysm surgery approximately two weeks earlier. Patient now complains of diarrhea and constipation. Correlation is made with CT abdomen and pelvis from 11/05/2018. FINDINGS: The lung bases are clear. The liver and gallbladder are unremarkable. There is no biliary ductal dilatation. The pancreas and spleen are unremarkable. No adrenal mass is detected. Kidneys are unremarkable. Since prior study, patient has had an aortic stent graft placed into the infrarenal abdominal aortic aneurysm. Both limbs of the stent graft appear to be patent. Excluded aneurysm sac dimensions are 6.2 cm AP x 6.8 cm transverse. This compares with pre procedure measurements of 5.8 cm AP x 6.4 cm transverse. No definite evidence of endoleak is seen, however. No periaortic fluid collection is seen to suggest leakage or rupture. Small and large bowel loops are normal caliber. There is no obstruction. There is no free fluid or fluid collection. The bladder is unremarkable. There is a large amount of streak artifact in the pelvis from right hip prosthesis. There are kyphoplasty changes in the lumbar spine. IMPRESSION: Infrarenal abdominal aortic aneurysm treated with an endograft. Excluded aneurysm sac dimensions are larger than pre procedure measurements from October 2018 although no findings to suggest endoleak are identified. No acute abnormality is detected. Dictated by: Dictated on workstation # [id number]
[2019-07-26 16:40] VITALS: BP 118/76
== END 2019-07-26 16:40 | disposition home or self-care (01) ==
LOC: EDUNIT# 12:32 → ER 12:34
DX: K59.00 Constipation, unspecified (principal); I10 Essential (primary) hypertension; E11.9 Type 2 diabetes mellitus without complications; E78.00 Pure hypercholesterolemia, unspecified; I25.10 Atherosclerotic heart disease of native coronary artery without angina pectoris; E03.9 Hypothyroidism, unspecified; F43.10 Post-traumatic stress disorder, unspecified; F17.210 Nicotine dependence, cigarettes, uncomplicated; Z85.828 Personal history of other malignant neoplasm of skin; Z85.118 Personal history of other malignant neoplasm of bronchus and lung; Z86.73 Personal history of transient ischemic attack (TIA), and cerebral infarction without residual deficits; Z79.82 Long term (current) use of aspirin; Z95.5 Presence of coronary angioplasty implant and graft; Z95.1 Presence of aortocoronary bypass graft
CPT/HCPCS: 36415; 74177; 80053; 81000; 83690; 85007; 85025; 85027; 96360

== ENCOUNTER 2019-09-04 14:27 | Emergency (ER) | payer MEDICARE, OTHER ==
[~2019-09-04] VITALS: Ht 170 cm; Wt 65.7 kg
[~2019-09-04 14:27] MED LIST changes: -MELA3TAB PO; +MELA3TAB65 PO; +OMEP-280 PO; -OMEP20CA13 PO; +SIMV40TA25 PO; -SIMV40TA4 PO
[2019-09-04 15:49] LABS: BASOPHILS % (AUTO) 1 % (0-10); EOSINOPHILS # (AUTO) 0.4 10^3/uL (0.0-0.3); EOSINOPHILS % (AUTO) 6 % (0-10); HEMATOCRIT 36 % (40-54); HEMOGLOBIN 11.5 G/DL (13.3-17.7); LYMPHOCYTES # (AUTO) 0.8 X 10^3 (1.0-4.0); LYMPHOCYTES % (AUTO) 13 % (12-44); MEAN CORPUSCULAR HEMOGLOBIN 28 PG (25-34); MEAN CORPUSCULAR HGB CONC 32 G/DL (32-36); MEAN CORPUSCULAR VOLUME 86 FL (80-99); MEAN PLATELET VOLUME 10.5 FL (7.4-10.4); MONOCYTES # (AUTO) 1.1 X 10^3 (0.0-1.0); MONOCYTES % (AUTO) 19 % (0-12); NEUTROPHILS # (AUTO) 3.6 X 10^3 (1.8-7.8); NEUTROPHILS % (AUTO) 61 % (42-75); PLATELET COUNT 241 10^3/uL (130-400); RED CELL DISTRIBUTION WIDTH 16.3 % (10.0-14.5); WHITE BLOOD COUNT 5.9 10^3/uL (4.3-11.0)
[2019-09-04 16:02] LABS: INR 1.1 (0.8-1.4); PROTHROMBIN TIME PATIENT 14.5 SEC (12.2-14.7)
[2019-09-04 16:13] LABS: ALANINE AMINOTRANSFERASE 21 U/L (0-55); ALBUMIN 2.2 GM/DL (3.2-4.5); ALKALINE PHOSPHATASE 90 U/L (40-136); BILIRUBIN,TOTAL 0.2 MG/DL (0.1-1.0); BUN/CREATININE RATIO 26; CALCIUM 7.8 MG/DL (8.5-10.1); CARBON DIOXIDE 27 MMOL/L (21-32); CHLORIDE 103 MMOL/L (98-107); CREATINE KINASE 125 U/L (30-200); CREATININE SERUM 0.58 MG/DL (0.60-1.30); GFR ESTIMATED > 60; GLUCOSE 97 MG/DL (70-105); LIPASE < 4 U/L (8-78); MAGNESIUM 1.6 MG/DL (1.6-2.4); POTASSIUM 4.1 MMOL/L (3.6-5.0); SODIUM 137 MMOL/L (135-145); TOTAL PROTEIN 5.1 GM/DL (6.4-8.2)
[2019-09-04 16:14] LABS: ANISOCYTOSIS MODERATE; BAND NEUTROPHILS 0 %; BASOPHILS % (MANUAL) 0 %; EOSINOPHILS % (MANUAL) 7 %; HYPOCHROMASIA MODERATE; LYMPHOCYTES % (MANUAL) 10 %; MONOCYTES % (MANUAL) 14 %; NEUTROPHILS % (MANUAL) 69 %; POIKILOCYTOSIS MODERATE; SCHISTOCYTES SLIGHT; TARGET CELLS SLIGHT
[2019-09-04 16:33] LABS: CREATINE KINASE MB 3.1 NG/ML (<6.6); TSH (THYROID ANALYZER) 2.88 UIU/ML (0.35-4.94); VALPROIC ACID 34.4 UG/ML (50.0-100.0)
--- NOTE | 2019-09-04 17:36 | Diagnostic Imaging Report ---
INDICATION: Edema. EXAMINATION: Chest, 09/04/2019. FINDINGS: Pulmonary vasculature is prominent. Left hemidiaphragm is elevated. Adjacent atelectasis is seen. Remaining lungs are clear. No effusions. No pneumothorax. IMPRESSION: Chronic change, as above, with possible left base atelectasis as well as pulmonary vascular congestion. Dictated by: Dictated on workstation # [id number]
--- NOTE | 2019-09-04 17:42 | ED General ---
General Chief Complaint: Cardiac/General Problems Stated Complaint: SWELLING IN LEGS Nursing Triage Note: TO TRIAGE VIA WC. PT STATES HE IS IN REHAB AT [facility] AND SINCE FRI HAS BEEN HAVING A LARGE AMOUNT OF EDEMA AND FLUID OOZING FROM HIS LEGS. FAMILY AND PT NOT HAPPY WITH THE CARE ET STATES THEY ARE NOT CONTACTING A DR. PT WAS SHIPPED FROM HERE TO [place] RECENTLY FOR ANEURSYMS AND HAD X7 STENTS PLACED. STATES HE HAS A WOUND ON HIS RIGHT LOWER ABD THAT HAS TO BE PACKED. Nursing Sepsis Screen: No Definite Risk Source of Information: Patient (LIMITED HISTORIAN), Family History of Present Illness Date Seen by Provider: Sep 04, 2019 Time Seen by Provider: 15:28 Initial Comments PT ARRIVES VIA POV, IN WHEELCHAIR PT WAS ADMITTED TO [facility] IN [place] ON 08/24/19, TO THE CARE OF DR. DAS. PRIOR TO THAT, PT WAS ADMITTED TO [facility], AND HAD STENTS PLACED FOR AAA BY DR. KELLEY AT [facility], APPROXIMATELY 6 WEEKS AGO, THEN PT WAS ADMITTED HERE FOR REHAB ACCORDING TO FAMILY--HOWEVER, THERE IS NO RECORD OF PT BEING ADMITTED HERE AT THIS FACILITY. 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 WAS FOUND TO HAVE BILATERAL LOWER LEG CELLULITIS AT THAT TIME WELL. PT THEN FOLLOWED UP WITH DR. KELLEY IN THE OFFICE AND THEN HAD SURGERY AT [facility]. PT WAS ALSO SEEN HERE IN ER 07/26/19 FOR CONSTIPATION, AND HAD COME FROM HOME AT THAT TIME--AT THAT TIME, IT WAS REPORTED THAT HE HAD THE STENTS PLACED IN HIS ABDOMINAL AORTIC ANEURYSM 12 DAYS PRIOR. WAS SENT BACK HOME AT THAT TIME. FAMILY REPORTS THAT PT HAS HAD SWELLING TO BOTH OF HIS LOWER LEGS SINCE FRIDAY, WITH SOME OOZING OF SEROUS FLUID--NO WOUNDS/SORES TO LEGS. THIS IS NO DIFFERENT TODAY IN ANY WAY NO COMPLAINTS OF LEG PAIN NO CHEST PAIN NO SHORTNESS OF BREATH--FAMILY STATES THAT PT IS ALWAYS A LITTLE SHORT OF BREATH, BUT NO DIFFERENT THAN NORMAL. FAMILY REPORT THAT THEY HEAR A "RUMBLE" WHEN HE BREATHES SOMETIMES. PT CONTINUES TO SMOKE AT LEAST 1/2 PPD FAMILY ALSO STATES THAT PT HAS BEEN HAVING INTERMITTENT VOMITING AND DIARRHEA SINCE FRIDAY OR FRIDAY, NONE TODAY. NO ABDOMINAL PAIN NO FEVER VOIDING A NORMAL AMOUNT PT HAS BEEN EATING AND DRINKING, BUT FAMILY ALSO HAS ISSUES WITH THE [facility] REGARDING HIS FOOD, AND HIS CHRONIC ISSUES WITH CHEWING AND SWALLOWING DUE TO PRIOR SURGERY / TREATMENT FOR LARYNGEAL CANCER AND REMOVAL OF SALIVARY GLANDS. FAMILY BROUGHT HIM HERE BECAUSE THEY ARE NOT HAPPY WITH THE CARE THEY HAVE RECEIVED AT THE [facility], AND THEY REPORT THAT THEY HAVE NOT CONTACTED THE DR FOR THESE PROBLEMS. [facility] [place] [facility] [place] [facility]. DR. DAS IS HIS ASSIGNED DRSeven AT [facility]. HAS SEEN DR. IRELAND, [facility] Allergies and Home Medications Allergies Coded Allergies: No Known Drug Allergies (Unverified , 10/14/16) Home Medications Amoxicillin/Potassium Clav 1 Each Tablet, 1 EACH PO BID Prescribed by: HUBERT CASANOVA on 07/08/191958 Aspirin 81 Mg Tablet.dr, 81 MG PO DAILY, (Reported) Divalproex Sodium 500 Mg Tablet.dr, 2 TAB PO HS, (Reported) Furosemide 40 Mg Tablet, 40 MG PO DAILY Prescribed by: ALVARO HAAS on 09/04/191751 Hydrocodone/Acetaminophen 1 Each Tablet, 1 TAB PO Q4-6HR Prescribed by: HUBERT CASANOVA on 07/08/191958 Melatonin 3 Mg Tablet, 3 MG PO HS, (Reported) Metoprolol Tartrate 50 Mg Tablet, 50 MG PO BID, (Reported) Omeprazole 20 Mg Capsule.dr, 20 MG PO DAILY, (Reported) Potassium Chloride 20 Meq Tablet.er, 20 MEQ PO DAILY Prescribed by: ALVARO HAAS on 09/04/191751 Potassium Chloride 10 Meq Capsule.er, 10 MEQ PO DAILY Prescribed by: ALVARO HAAS on 09/04/191753 Prazosin HCl 2 Mg Capsule, 2 MG PO TID, (Reported) Psyllium Seed (with Sugar) 368 Gm Powder, 368 GM PO DAILY, (Reported) Sertraline HCl 25 Mg Tablet, 25 MG PO DAILY, (Reported) Simvastatin 40 Mg Tablet, 0.5 TAB PO HS, (Reported) Patient Home Medication List Home Medication List Reviewed: Yes Review of Systems Review of Systems Constitutional: no symptoms reported; No chills, No diaphoresis, No fever Respiratory: see HPI; No cough, No short of breath Cardiovascular: see HPI; No chest pain; edema Gastrointestinal: see HPI; No abdominal pain; diarrhea, vomiting Genitourinary: no symptoms reported Musculoskeletal: no symptoms reported Skin: see HPI Psychiatric/Neurological: No Symptoms Reported; Denies Numbness, Denies Paresthesia Hematologic/Lymphatic: No Symptoms Reported Immunological/Allergic: no symptoms reported Past Ohpbozq-Nmrgpx-Mnbyts Hx Past Med/Social Hx: Reviewed and Corrections made Patient Social History Alcohol Use: Denies Use Recreational Drug Use: No Smoking Status: Current Everyday Smoker (1/2 PPD) Type Used: Cigarettes (/2 PPD) Recent Foreign Travel: No Contact w/Someone Who Travel: No Recent Infectious Disease Expo: No Recent Hopitalizations: Yes Immunizations Up To Date PED Vaccines UTD: No Seasonal Allergies Seasonal Allergies: No Past Medical History Surgeries: Yes (47 OPERATIONS TOTAL, RIGHT LEG-MULT SURGERIES-REPLACED WITH TITANIUM) Abdominal, Appendectomy, Cardiac, CABG, Coronary Stent, Eye Surgery, Orthopedic, Vascular Surgery Respiratory: Yes (LUNG CANCER) COPD Cardiac: Yes (STENTS, CABG, AAA-ENDOVASCUAR REPAIR WITH STENT/GRAFT 06/2019) Aneurysm, Chronic Edema/Swelling, Coronary Artery Disease, Heart Attack, Heart Murmur, High Cholesterol, Hypertension, Peripheral Vascular Neurological: Yes (TREMORS; POLYNEUROPATHY; CONGNITIVE IMPAIRMENT) Neuropathy, TIA Genitourinary: No Gastrointestinal: Yes (+FIT TEST 12/2018-S/P COLONOSCOPY AND POLYPECTOMY X 5- TUBULAR ADENOMAS) Gastroesophageal Reflux, Chronic Constipation, Polyps Musculoskeletal: Yes (R LEG-OSTEO/CHONDRAL SARCOMA;BACK/NECK SURGERIES;GEN WEAKNESS/GAIT DISTURBA) Arthritis, Chronic Back Pain Endocrine: Yes (diabetic prior to wt loss) Hypothyroidsim, Diabetes, Non-Insulin dep HEENT: Yes (cataracts removed, LARYNGEAL /TONSILLAR CANCER-S/P SURGERY ) Cataract, Dysphagia, Macular Degeneration Hearing Impairment: Hard of Hearing Cancer: Yes (LARYNGEAL, OSTEO/CHONDRAL SARCOMA RIGHT LEG; SCC LUNG/THROAT/TONSILS) Bone, Lung, Skin, Oral Did You Recieve Any Treatments: Yes (PT UNABLE TO GIVE DETAILS OF TREATMENTS FOR HIS CANCERS-"5 DIFFERENT CANCERS" PER PT ) What Type of Treatment Did You: Chemotherapy, Radiation, Surgical Intervention Psychosocial: Yes Sleep Difficulties, PTSD Integumentary: No Blood Disorders: No Family Medical History PSH: -47 SURGERIES PER PT--UNABLE TO LIST ALL -MULTIPLE BACK AND NECK SURGERIES, INCLUDING KYPHOPLASTY -MULTIPLE SURGERIES TO RIGHT LEG DUE TO OSTEO/CHONDRAL SARCOMA--RIGHT FEMUR REPLACED WITH TITANIUM, RIGHT HIP REPLACED? RIGHT KNEE REPLACED? 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 -LUNG BIOPSIES -STOMACH ULCER REPAIR -APPENDECTOMY COMPLICATED BY INTRA-ABDOMINAL ABSCESS WITH ADDITIONAL SURGERIES--MULTIPLE ABDOMINAL SURGERIES STARTING AT AGE 13 AND INTO TEENS -MULTIPLE HERNIA REPAIRS -COLONOSCOPIES/POLYPECTOMIES--LAST ONE 01/12/19--WITH POLYPECTOMY X 5 -CATARACT SURGERY Physical Exam Vital Signs Vital Signs - First Documented 09/04/19 14:40 Temp 36.5 Pulse 82 Resp 16 B/P (MAP) 120/76 (91) Pulse Ox 94 O2 Delivery Room Air Capillary Refill : Less Than 3 Seconds Height, Weight, BMI Height: 5'7.00" Weight: 150lbs. 0.0oz. 68.288826ht; 22.00 BMI Method:Estimated General Appearance: No Apparent Distress, WD/WN, Thin, Other (PLEASANT, RESTING QUIETLY. DOES NOT APPEAR TO BE IN ANY DISCOMFORT OR DISTRESS. ) HEENT: Other (DENTULOUS) Neck: Full Range of Motion, Non Tender Respiratory: Normal Breath Sounds, No Accessory Muscle Use, No Respiratory D istress; No Crackles, No Decreased Breath Sounds, No Rales, No Rhonci, No Wheezing Cardiovascular: Regular Rate, Rhythm, No JVD, Normal Peripheral Pulses (PEDAL PULSES +1/4 BILATERALLY), Systolic Murmur (1/6 MURMUR) Gastrointestinal: Non Tender, Soft Back: No CVA Tenderness Extremity: Pedal Edema (1+ BILATERALLY, WITH EXTENSIVE CHRONIC VENOUS STASIS CHANGES BILATERALLY, SOME MILD "RUDDINESS" TO BILATERAL LOWER LEGS--NON TENDER. NO OPEN WOUNDS, NO WEEPING NOTED AT THIS TIME. BOTH FEET SLIGHTLY DUSKY AND SLIGHTLY COOL--FAMILY REPORTS IS NORMAL. MOTOR/SENSORY INTACT. 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 NO OBVIOUS SIGNS OF CELLULITIS. NON-TENDER. ) Progress/Results/Core Measures Suspected Sepsis Recent Fever Within 48 Hours: No Infection Criteria Present: None New/Unexplained Altered Menta: No Sepsis Screen: No Definite Risk SIRS Temperature: Pulse: 82 Respiratory Rate: 16 Laboratory Tests 09/04/19 15:36: White Blood Count 5.9 Blood Pressure 120 /76 Mean: 91 Laboratory Tests 09/04/19 15:36: Creatinine 0.58L, INR Comment 1.1, Platelet Count 241, Total Bilirubin 0.2 Results/Orders Lab Results Laboratory Tests Test 09/04/19 15:36 09/04/19 18:55 Range/Units White Blood Count 5.9 4.3-11.0 10^3/uL Red Blood Count 4.13 L 4.35-5.85 10^6/uL Hemoglobin 11.5 L 13.3-17.7 G/DL Hematocrit 36 L 40-54 % Mean Corpuscular Volume 86 80-99 FL Mean Corpuscular Hemoglobin 28 25-34 PG Mean Corpuscular Hemoglobin Concent 32 32-36 G/DL Red Cell Distribution Width 16.3 H 10.0-14.5 % Platelet Count 241 130-400 10^3/uL Mean Platelet Volume 10.5 H 7.4-10.4 FL Neutrophils (%) (Auto) 61 42-75 % Lymphocytes (%) (Auto) 13 12-44 % Monocytes (%) (Auto) 19 H 0-12 % Eosinophils (%) (Auto) 6 0-10 % Basophils (%) (Auto) 1 0-10 % Neutrophils # (Auto) 3.6 1.8-7.8 X 10^3 Lymphocytes # (Auto) 0.8 L 1.0-4.0 X 10^3 Monocytes # (Auto) 1.1 H 0.0-1.0 X 10^3 Eosinophils # (Auto) 0.4 H 0.0-0.3 10^3/uL Basophils # (Auto) 0.0 0.0-0.1 10^3/uL Neutrophils % (Manual) 69 % Lymphocytes % (Manual) 10 % Monocytes % (Manual) 14 % Eosinophils % (Manual) 7 % Basophils % (Manual) 0 % Band Neutrophils 0 % Hypochromasia MODERATE Poikilocytosis MODERATE Anisocytosis MODERATE Target Cells SLIGHT Schistocytes SLIGHT Prothrombin Time 14.5 12.2-14.7 SEC INR Comment 1.1 0.8-1.4 Activated Partial Thromboplast Time 34 24-35 SEC Sodium Level 137 135-145 MMOL/L Potassium Level 4.1 3.6-5.0 MMOL/L Chloride Level 103 98-107 MMOL/L Carbon Dioxide Level 27 21-32 MMOL/L Anion Gap 7 5-14 MMOL/L Blood Urea Nitrogen 15 7-18 MG/DL Creatinine 0.58 L 0.60-1.30 MG/DL Estimat Glomerular Filtration Rate > 60 BUN/Creatinine Ratio 26 Glucose Level 97 70-105 MG/DL Calcium Level 7.8 L 8.5-10.1 MG/DL Corrected Calcium 9.2 8.5-10.1 MG/DL Magnesium Level 1.6 1.6-2.4 MG/DL Total Bilirubin 0.2 0.1-1.0 MG/DL Aspartate Amino Transf (AST/SGOT) 32 5-34 U/L Alanine Aminotransferase (ALT/SGPT) 21 0-55 U/L Alkaline Phosphatase 90 40-136 U/L Total Creatine Kinase 125 30-200 U/L Creatine Kinase MB 3.1 <6.6 NG/ML Troponin I < 0.028 <0.028 NG/ML B-Type Natriuretic Peptide 98.9 <100.0 PG/ML Total Protein 5.1 L 6.4-8.2 GM/DL Albumin 2.2 L 3.2-4.5 GM/DL Lipase < 4 L 8-78 U/L TSH [place] Testing 2.88 0.35-4.94 UIU/ML Valproic Acid (Depakene) Level 34.4 L 50.0-100.0 UG/ML Urine Color YELLOW Urine Clarity CLEAR Urine pH 7.5 5-9 Urine Specific [place] 1.020 1.016-1.022 Urine Protein NEGATIVE NEGATIVE Urine Glucose (UA) NEGATIVE NEGATIVE Urine Ketones NEGATIVE NEGATIVE Urine Nitrite NEGATIVE NEGATIVE Urine Bilirubin NEGATIVE NEGATIVE Urine Urobilinogen 0.2 < = 1.0 MG/DL Urine Leukocyte Esterase NEGATIVE NEGATIVE Urine RBC (Auto) NEGATIVE NEGATIVE Urine RBC NONE /HPF Urine WBC NONE /HPF Urine Squamous Epithelial Cells RARE /HPF Urine Crystals NONE /LPF Urine Bacteria NEGATIVE /HPF Urine Casts NONE /LPF Urine Mucus SMALL H /LPF Urine Culture Indicated NO My Orders Orders - ALVARO HAAS DO Ed Iv/Invasive Line Start (09/04/19 15:35) Ekg Tracing (09/04/19 15:35) Monitor-Rhythm Ecg Trace Only (09/04/19 15:35) Chest 1 View, Ap/Pa Only (09/04/19 15:35) BNP (09/04/19 15:35) Cbc With Automated Diff (09/04/19 15:35) Comprehensive Metabolic Panel (09/04/19 15:35) Creatine Kinase (09/04/19 15:35) Creatine Kinase Mb (09/04/19 15:35) Lipase (09/04/19 15:35) Magnesium (09/04/19 15:35) Protime With Inr (09/04/19 15:35) Partial Thromboplastin Time (09/04/19 15:35) Thyroid Analyzer (09/04/19 15:35) Ua Culture If Indicated (09/04/19 15:35) Troponin I (09/04/19 15:35) Valproic Acid (09/04/19 15:38) Manual Differential (09/04/19 15:36) Furosemide Injection (Lasix Injection) (09/04/19 17:45) [place] Hose 09,21 (09/04/19 17:45) Potassium Chloride (Tablet) (K Dur Table (09/04/19 18:00) Medications Given in ED Vital Signs/I&O 09/04/19 18:55 Pulse 75 Resp 13 B/P (MAP) 129/88 Pulse Ox 92 O2 Delivery Room Air Capillary Refill : Less Than 3 Seconds Blood Pressure Mean: 91 Progress Note : Progress Note PT HAD NO COMPLAINTS OF ANY KIND DURING ENTIRE ER STAY VITALS STABLE PT RESTED QUIETLY FOR MOST OF ER STAY ECG Initial ECG Impression Date: Sep 04, 2019 Initial ECG Impression Time: 15:59 Initial ECG Rate: 71 Initial ECG Rhythm: Normal Sinus Initial ECG Comparisson: No Previous ECG Available Diagnostic Imaging Comments CXR--MINIMAL VASCULAR CONGESTION, OTHERWISE CHRONIC APPEARING CHANGES, PER RADIOLOGIST REPORT AT 1741 Departure Impression Primary Impression: Bilateral leg edema Additional Impression: MALNUTRITION WITH HYPOALBUMINEMIA AND HYPOPROTEINEMIA Disposition: XF [facility] Condition: Stable Departure-Patient Inst. Referrals: ANITA DAS MD NO,LOCAL PHYSICIAN (PCP) Primary Care Physician Patient Instructions: Dependent Edema (DC) Add. Discharge Instructions: WEAR [place] HOSE AT ALL TIMES ELEVATE LEGS MUCH POSSIBLE CONTINUE YOUR CURRENT MEDICATIONS PRESCRIBED FOLLOW UP WITH YOUR DR ON FRIDAY FOR FURTHER CARE All discharge instructions reviewed with patient and/or family. Voiced understanding. Scripts Potassium Chloride (Potassium Chloride) 10 Meq Capsule.er 10 MEQ PO DAILY, #3 CAP Prov: SAMINA,ALVARO K DO 09/04/19 Potassium Chloride (Potassium Chloride) 20 Meq Tablet.er 20 MEQ PO DAILY, #3 TAB Prov: SAMINA,ALVARO K DO 09/04/19 Furosemide (Lasix) 40 Mg Tablet 40 MG PO DAILY, #3 TAB Prov: SAMINA,ALVARO K DO 09/04/19 SAMINA,ALVARO K DO Sep 04, 2019 17:42
[2019-09-04] MEDS ORDERED: FUROSEMIDE 40 MG/4 ML INJ (LASIX) IVP ONE (17:45)
[2019-09-04] MEDS ORDERED: POTA-51 PO (17:52)
[2019-09-04] MEDS ORDERED: FURO-124 PO (17:52)
[2019-09-04] MEDS ORDERED: POTA10CA43 PO (17:54)
[2019-09-04] MEDS ORDERED: KCL 20 MEQ TAB (K-DUR) PO ONE (18:00)
[2019-09-04 18:55] VITALS: BP 129/88
[2019-09-04 19:22] LABS: BILIRUBIN,URINE NEGATIVE (NEGATIVE); CLARITY,URINE CLEAR; COLOR,URINE YELLOW; GLUCOSE, URINE (UA) NEGATIVE (NEGATIVE); KETONES,URINE NEGATIVE (NEGATIVE); LEUKOCYTE ESTERASE ,URINE NEGATIVE (NEGATIVE); NITRITE,URINE NEGATIVE (NEGATIVE); PH,URINE 7.5 (5-9); PROTEIN,URINE NEGATIVE (NEGATIVE)
[2019-09-04 19:29] LABS: BACTERIA,URINE NEGATIVE /HPF; SQUAMOUS EPITHELIAL CELL,UR RARE /HPF
== END 2019-09-04 18:55 ==
LOC: EDUNIT# 14:27 → ER 14:28
DX: R60.0 Localized edema (principal); E46 Unspecified protein-calorie malnutrition; E88.09 Other disorders of plasma-protein metabolism, not elsewhere classified; E77.8 Other disorders of glycoprotein metabolism; I10 Essential (primary) hypertension; I25.2 Old myocardial infarction; E78.00 Pure hypercholesterolemia, unspecified; I25.10 Atherosclerotic heart disease of native coronary artery without angina pectoris; K21.9 Gastro-esophageal reflux disease without esophagitis; F17.210 Nicotine dependence, cigarettes, uncomplicated; Z85.828 Personal history of other malignant neoplasm of skin; Z85.118 Personal history of other malignant neoplasm of bronchus and lung; Z85.830 Personal history of malignant neoplasm of bone; Z85.818 Personal history of malignant neoplasm of other sites of lip, oral cavity, and pharynx; Z79.82 Long term (current) use of aspirin; Z95.5 Presence of coronary angioplasty implant and graft; Z95.1 Presence of aortocoronary bypass graft; Z86.73 Personal history of transient ischemic attack (TIA), and cerebral infarction without residual deficits
CPT/HCPCS: 36415; 71045; 80053; 80164; 81000; 82550; 82553; 83690; 83735; 83880; 84443; 84484; 85007; 85027; 85610; 85730; 93005; 93041; 96374

== ENCOUNTER 2021-03-03 09:52 | Emergency (ER) | payer MEDICARE, OTHER ==
[~2021-03-03] VITALS: Ht 170 cm; Wt 67.7 kg
[~2021-03-03 09:52] MED LIST changes: +FURO-124 PO; +MELA3TAB39 PO; -MELA3TAB65 PO; -OMEP-280 PO; +OMEP20CA18 PO; +POTA-51 PO; +POTA10CA43 PO; +SERT-412 PO; -SERT25TA5 PO
[2021-03-03] MEDS ORDERED: NS IV 500 ML 500 ML IV ONE (10:45)
--- NOTE | 2021-03-03 10:55 | ED Lower Extremity ---
General Chief Complaint: Lower Extremity Stated Complaint: R LEG/FOOT CIRCULATION ISSUES Nursing Triage Note: AMB TO ROOM ACCOMPIED BY MALE C/O PAIN IN LOWER LEG FOR 3 WEEKS HAS PMH OF POOR CIRCULATION. FOOT AND ANKLE RED. WAS SEEN AT ID CL[facility]IC IN [place]. LAST FRIDAY AND FRIDAY AND WAS TOLD TO GO TO ER. CLINIC TRYING TO MAKE APPOINTMENT WITH IN [place] BUT HAS NOT DONE YET. Source: patient Exam Limitations: no limitations History of Present Illness Date Seen by Provider: Mar 03, 2021 Time Seen by Provider: 10:20 Initial Comments Here with complaint of pain to the right foot and specifically the right second through fifth toes. Notes the foot is red. He has vascular problems of both legs and has had multiple stents in the iliac region placed as well as AAA. Denies abdominal pain or other concerns related to that. He is not on aspirin daily. He does not like to take pain medicines. He goes to the [facility] and they are working on setting him up with vascular surgery in [place] but he has not heard back from them yet. Concerned about the foot and blood flow. Does have small neck on the tip of the first toe and at the base of the foot near the base of the first metatarsal. Also has area of irritation between the fourth and fifth toe. Foot is red as described but no swelling. He states that he uses positi oning for pain control as he does not like taking meds that make him feel drowsy. He does smoke and continues to smoke. Onset: other Severity: moderate Pain/Injury Location: right leg, right foot Method of Injury: unknown Modifying Factors: Improves With Immobilization, Improves With Rest, Improves With Other (Positioning) Allergies and Home Medications Allergies Coded Allergies: No Known Drug Allergies (Unverified , 10/14/16) Home Medications Amoxicillin/Potassium Clav 1 Each Tablet, 1 EACH PO BID Prescribed by: HUBERT CASANOVA on 07/08/191958 Aspirin 81 Mg Tablet., 81 MG PO DAILY, (Reported) Divalproex Sodium 500 Mg Tablet., 2 TAB PO HS, (Reported) Furosemide 40 Mg Tablet, 40 MG PO DAILY Prescribed by: ALVARO HAAS on 09/04/191751 Hydrocodone/Acetaminophen 1 Each Tablet, 1 TAB PO Q4-6HR Prescribed by: HUBERT CASANOVA on 07/08/191958 Melatonin 3 Mg Tablet, 3 MG PO HS, (Reported) Metoprolol Tartrate 50 Mg Tablet, 50 MG PO BID, (Reported) Omeprazole 20 Mg Capsule.dr, 20 MG PO DAILY, (Reported) Potassium Chloride 20 Meq Tablet.er, 20 MEQ PO DAILY Prescribed by: ALVARO HAAS on 09/04/191751 Potassium Chloride 10 Meq Capsule.er, 10 MEQ PO DAILY Prescribed by: ALVARO HAAS on 09/04/191753 Prazosin HCl 2 Mg Capsule, 2 MG PO TID, (Reported) Psyllium Seed (with Sugar) 368 Gm Powder, 368 GM PO DAILY, (Reported) Sertraline HCl 25 Mg Tablet, 25 MG PO DAILY, (Reported) Simvastatin 40 Mg Tablet, 0.5 TAB PO HS, (Reported) Patient Home Medication List Home Medication List Reviewed: Yes Review of Systems Constitutional: see HPI; No chills, No fever EENTM: no symptoms reported Respiratory: No cough, No short of breath Cardiovascular: No chest pain, No edema Gastrointestinal: No abdominal pain, No nausea, No vomiting Genitourinary: no symptoms reported Musculoskeletal: No joint pain; muscle pain Skin: change in color, lesions Psychiatric/Neurological: Paresthesia; Denies Weakness All Other Systems Reviewed Negative Unless Noted: Yes Past Lkztmfb-Jzyxaw-Cvevtx Hx Patient Social History Tobacco Use?: Yes Tobacco type used: Cigarettes Substance use?: No Alcohol Use?: No Pt feels they are or have been: No Immunizations Up To Date PED Vaccines UTD: No Influenza Vaccine Up-to-Date: No; Not Current First/Initial COVID19 Vaccinat: SEPTEMBER COVID19 Vaccine [employer]: [employer] Seasonal Allergies Seasonal Allergies: No Past Medical History Surgeries: Yes (47 OPERATIONS TOTAL, RIGHT LEG-MULT SURGERIES-REPLACED WITH TITANIUM) Abdominal, Appendectomy, Cardiac, CABG, Coronary Stent, Eye Surgery, Orthopedic, Vascular Surgery Respiratory: Yes (LUNG CANCER) COPD Cardiac: Yes (STENTS, CABG, AAA-ENDOVASCUAR REPAIR WITH STENT/GRAFT 06/2019) Aneurysm, Chronic Edema/Swelling, Coronary Artery Disease, Heart Attack, Heart Murmur, High Cholesterol, Hypertension, Peripheral Vascular Neurological: Yes (TREMORS; POLYNEUROPATHY; CONGNITIVE IMPAIRMENT) Neuropathy, TIA Genitourinary: No Gastrointestinal: Yes (+FIT TEST 12/2018-S/P COLONOSCOPY AND POLYPECTOMY X 5- TUBULAR ADENOMAS) Gastroesophageal Reflux, Chronic Constipation, Polyps Musculoskeletal: Yes (R LEG-OSTEO/CHONDRAL SARCOMA;BACK/NECK SURGERIES;GEN WEAKNESS/GAIT DISTURBA) Arthritis, Chronic Back Pain Endocrine: Yes (diabetic prior to wt loss) Hypothyroidsim, Diabetes, Non-Insulin dep HEENT: Yes (cataracts removed, LARYNGEAL /TONSILLAR CANCER-S/P SURGERY ) Cataract, Dysphagia, Macular Degeneration Hearing Impairment: Hard of Hearing Cancer: Yes (LARYNGEAL, OSTEO/CHONDRAL SARCOMA RIGHT LEG; SCC LUNG/THROAT/TONSILS) Bone, Lung, Skin, Oral Did You Recieve Any Treatments: Yes What Type of Treatment Did You: Chemotherapy, Radiation, Surgical Intervention Psychosocial: Yes Sleep Difficulties, PTSD Integumentary: No Blood Disorders: No Family Medical History Reviewed Nursing Family Hx PSH: -47 SURGERIES PER PT--UNABLE TO LIST ALL -MULTIPLE BACK AND NECK SURGERIES, INCLUDING KYPHOPLASTY -MULTIPLE SURGERIES TO RIGHT LEG DUE TO OSTEO/CHONDRAL SARCOMA--RIGHT FEMUR REPLACED WITH TITANIUM, RIGHT HIP REPLACED? RIGHT KNEE REPLACED? 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 -LUNG BIOPSIES -STOMACH ULCER REPAIR -APPENDECTOMY COMPLICATED BY INTRA-ABDOMINAL ABSCESS WITH ADDITIONAL SURGERIES--MULTIPLE ABDOMINAL SURGERIES STARTING AT AGE 13 AND INTO TEENS -MULTIPLE HERNIA REPAIRS -COLONOSCOPIES/POLYPECTOMIES--LAST ONE 01/12/19--WITH POLYPECTOMY X 5 -CATARACT SURGERY Physical Exam Vital Signs Vital Signs - First Documented 03/03/21 09:56 Temp 36.1 Pulse 74 Resp 18 B/P (MAP) 146/74 (98) Pulse Ox 97 O2 Delivery Room Air Capillary Refill : Less Than 3 Seconds Height, Weight, BMI Height: 5'7.00" Weight: 150lbs. 0.0oz. [id number]; 23.00 BMI Method:Estimated General Appearance: WD/WN, no apparent distress HEENT: PERRL/EOMI, pharynx normal Neck: full range of motion, supple Cardiovascular: regular rate, rhythm, no murmur Respiratory: lungs clear, normal breath sounds Gastrointestinal: non tender, soft Back: normal inspection, no CVA tenderness, no vertebral tenderness Hips: bilateral hip non-tender, bilateral hip normal inspection Legs: left leg non-tender, left leg normal inspection; bilateral leg normal range of motion; left leg no evidence of injury; right leg other (Erythema from the foot to the lower leg just above the area of the ankle. Does have small vannessa wound to the anterior mid tibia that does have some mild surrounding erythema without pustule or fluctuance.) Feet: left foot non-tender, left foot normal inspection; bilateral foot normal range of motion; right foot pain, right foot soft tissue tenderness, right foot other (Erythema noted to the foot. Small wound to the tip of the toe of the great toe. Small wound at the first MTP joint area on the sole of the foot.) Neurologic/Tendon: normal motor functions, normal tendon functions, sensory deficit (Tingling to the second through fifth toes) Neurologic/Psychiatric: alert, oriented x 3 Skin: other (Erythema noted as described above. Limb does not appear white or dusky.) Dorsalis pedis pulse weak but dopplerable on the left and weaker but dopplerable on the right. Progress/Results/Core Measures Results/Orders Lab Results Laboratory Tests Test 03/03/21 10:53 Range/Units White Blood Count 6.6 4.3-11.0 10^3/uL Red Blood Count 4.52 4.30-5.52 10^6/uL Hemoglobin 14.6 13.3-17.7 g/dL Hematocrit 43 40-54 % Mean Corpuscular Volume 94 80-99 fL Mean Corpuscular Hemoglobin 32 25-34 pg Mean Corpuscular Hemoglobin Concent 34 32-36 g/dL Red Cell Distribution Width 13.2 10.0-14.5 % Platelet Count 174 130-400 10^3/uL Mean Platelet Volume 10.4 9.0-12.2 fL Immature Granulocyte % (Auto) 0 % Neutrophils (%) (Auto) 64 42-75 % Lymphocytes (%) (Auto) 13 12-44 % Monocytes (%) (Auto) 15 H 0-12 % Eosinophils (%) (Auto) 8 0-10 % Basophils (%) (Auto) 0 0-10 % Neutrophils # (Auto) 4.2 1.8-7.8 10^3/uL Lymphocytes # (Auto) 0.8 L 1.0-4.0 10^3/uL Monocytes # (Auto) 1.0 0.0-1.0 10^3/uL Eosinophils # (Auto) 0.5 H 0.0-0.3 10^3/uL Basophils # (Auto) 0.0 0.0-0.1 10^3/uL Immature Granulocyte # (Auto) 0.0 0.0-0.1 10^3/uL Prothrombin Time 13.3 12.2-14.7 SEC INR Comment 1.0 0.8-1.4 Activated Partial Thromboplast Time 27 24-35 SEC Sodium Level 135 135-145 MMOL/L Potassium Level 4.4 3.6-5.0 MMOL/L Chloride Level 99 98-107 MMOL/L Carbon Dioxide Level 26 21-32 MMOL/L Anion Gap 10 5-14 MMOL/L Blood Urea Nitrogen 12 7-18 MG/DL Creatinine 0.67 0.60-1.30 MG/DL Estimat Glomerular Filtration Rate 116 BUN/Creatinine Ratio 18 Glucose Level 132 H 70-105 MG/DL Lactic Acid Level 1.03 0.50-2.00 MMOL/L Calcium Level 8.8 8.5-10.1 MG/DL Corrected Calcium 9.4 8.5-10.1 MG/DL Total Bilirubin 0.4 0.1-1.0 MG/DL Aspartate Amino Transf (AST/SGOT) 31 5-34 U/L Alanine Aminotransferase (ALT/SGPT) 37 0-55 U/L Alkaline Phosphatase 74 40-136 U/L C-Reactive Protein High Sensitivity 0.58 H 0.00-0.50 MG/DL Total Protein 6.2 L 6.4-8.2 GM/DL Albumin 3.3 3.2-4.5 GM/DL Procalcitonin 0.01 <0.10 NG/ML My Orders Orders - RUSLAN HANNA MD Cbc With Automated Diff (03/03/21 10:35) Comprehensive Metabolic Panel (03/03/21 10:35) Blood Culture (03/03/21 10:35) Sputum Culture (03/03/21 10:35) Protime With Inr (03/03/21 10:35) Partial Thromboplastin Time (03/03/21 10:35) Ed Iv/Invasive Line Start (03/03/21 10:35) Vital Signs Adult Sepsis Patie Q15M (03/03/21 10:35) O2 (03/03/21 10:35) Remove Rings In Anticipation O (03/03/21 10:35) Lactic Acid Analyzer (03/03/21 10:35) Ns Iv 500 Ml (Sodium Chloride 0.9%) (03/03/21 10:45) Hs C Reactive Protein (03/03/21 10:35) Procalcitonin (Pct) (03/03/21 10:35) Ceftriaxone (Rocephin) (03/03/21 12:18) Medications Given in ED Current Medications Medications Dose Ordered Sig/Latrell Route Start Time Stop Time Status Last Admin Dose Admin Sodium Chloride 500 ml @ 0 mls/hr Q0M ONCE IV 03/03/21 10:45 03/03/21 10:47 DC 03/03/21 11:05 500 MLS/HR Vital Signs/I&O 03/03/21 09:56 Temp 36.1 Pulse 74 Resp 18 B/P (MAP) 146/74 (98) Pulse Ox 97 O2 Delivery Room Air Blood Pressure Mean: 98 Progress Progress Note : Progress Note Seen and evaluated. Patient is limited does not have findings currently of significant ischemia. Capillary refill is 4 to 5 seconds which is slowed although patient has known vascular disease. Doppler pulse is faint but present on the right and a little better and present on the left foot. We will go ahead and check basic labs concerning infection as he has these small wounds and this may be more of a local cellulitis. I did discuss all of this with him and that we have no vascular surgeon currently. He does have referral out to [place] to Dr. Nielsen and has not [facility]. Monitor patient. 1230: I do have concerns about cellulitis. Cap refill is 3 to 4 seconds on the foot overall. He does have the wound to the great toe. We will initiate Rocephin 1 g IV now and outpatient cefdinir. He will follow-up with [facility] for [facility] to [facility]. No indication for admission at this point. Discharged home with return precautions. Patient verbalized understanding instructions and agreement with plan. Departure Impression Primary Impression: Cellulitis of right foot Additional Impression: Peripheral vascular disease Disposition: 01 HOME, SELF-CARE Condition: Stable Departure-Patient Inst. Decision time for Depature: 12:33 Referrals: NO,LOCAL PHYSICIAN (PCP/Family) Primary Care Physician Patient Instructions: Cellulitis (Skin Infection), Adult (DC), Peripheral Vascular (Arterial) Disease (DC) Add. Discharge Instructions: All discharge instructions reviewed with patient and/or family. Voiced understanding. Take medications as directed. [facility] and further temitope luation and for referral to vascular surgery. Return here for worsening, weakness, numbness, pale skin to the foot or lower leg area, fever or other concerns as needed. You may also follow-up with facility with vascular surgery. RUSLAN HANNA MD Mar 03, 2021 10:55
[2021-03-03 11:04] LABS: BASOPHILS % (AUTO) 0 % (0-10); EOSINOPHILS # (AUTO) 0.5 10^3/uL (0.0-0.3); EOSINOPHILS % (AUTO) 8 % (0-10); HEMATOCRIT 43 % (40-54); HEMOGLOBIN 14.6 g/dL (13.3-17.7); LYMPHOCYTES # (AUTO) 0.8 10^3/uL (1.0-4.0); LYMPHOCYTES % (AUTO) 13 % (12-44); MEAN CORPUSCULAR HEMOGLOBIN 32 pg (25-34); MEAN CORPUSCULAR HGB CONC 34 g/dL (32-36); MEAN CORPUSCULAR VOLUME 94 fL (80-99); MEAN PLATELET VOLUME 10.4 fL (9.0-12.2); MONOCYTES % (AUTO) 15 % (0-12); NEUTROPHILS # (AUTO) 4.2 10^3/uL (1.8-7.8); NEUTROPHILS % (AUTO) 64 % (42-75); PLATELET COUNT 174 10^3/uL (130-400); WHITE BLOOD COUNT 6.6 10^3/uL (4.3-11.0)
[2021-03-03 11:17] LABS: ALBUMIN 3.3 GM/DL (3.2-4.5)
[2021-03-03 11:18] LABS: POTASSIUM 4.4 MMOL/L (3.6-5.0)
[2021-03-03 11:19] LABS: CALCIUM 8.8 MG/DL (8.5-10.1); PROTHROMBIN TIME PATIENT 13.3 SEC (12.2-14.7)
[2021-03-03 11:20] LABS: TOTAL PROTEIN 6.2 GM/DL (6.4-8.2)
[2021-03-03 11:22] LABS: BILIRUBIN,TOTAL 0.4 MG/DL (0.1-1.0)
[2021-03-03 11:24] LABS: CREATININE SERUM 0.67 MG/DL (0.60-1.30)
[2021-03-03] MEDS ORDERED: cefTRIAXone 1,000 MG in WATER (STERILE) FOR INJECTION 10 ML IV STA (12:18)
[2021-03-03 13:00] VITALS: BP 162/89
[2021-03-03] MEDS ORDERED: CEFD300C3 PO (13:02)
== END 2021-03-03 13:05 | disposition home or self-care (01) ==
LOC: EDUNIT# 09:52 → ER 09:54
DX: L03.115 Cellulitis of right lower limb (principal); I73.9 Peripheral vascular disease, unspecified; J44.9 Chronic obstructive pulmonary disease, unspecified; I10 Essential (primary) hypertension; I25.2 Old myocardial infarction; E78.00 Pure hypercholesterolemia, unspecified; I25.10 Atherosclerotic heart disease of native coronary artery without angina pectoris; K21.9 Gastro-esophageal reflux disease without esophagitis; G89.29 Other chronic pain; M54.9 Dorsalgia, unspecified; E11.9 Type 2 diabetes mellitus without complications; Z86.73 Personal history of transient ischemic attack (TIA), and cerebral infarction without residual deficits; Z79.82 Long term (current) use of aspirin; Z79.899 Other long term (current) drug therapy; Z79.891 Long term (current) use of opiate analgesic
CPT/HCPCS: 36415; 80053; 83605; 84145; 85025; 85610; 85730; 86141; 87040; 96374

== ENCOUNTER 2021-03-28 13:11 | Outpatient (RCR) | payer MEDICARE, OTHER ==
[~2021-03-28 13:11] MED LIST changes: +CEFD300C3 PO
[2021-03-28 13:25] LABS: BASOPHILS % (AUTO) 1 % (0-10); EOSINOPHILS # (AUTO) 0.4 10^3/uL (0.0-0.3); EOSINOPHILS % (AUTO) 5 % (0-10); HEMATOCRIT 47 % (40-54); HEMOGLOBIN 15.6 g/dL (13.3-17.7); LYMPHOCYTES # (AUTO) 1.3 10^3/uL (1.0-4.0); LYMPHOCYTES % (AUTO) 15 % (12-44); MEAN CORPUSCULAR HEMOGLOBIN 32 pg (25-34); MEAN CORPUSCULAR HGB CONC 33 g/dL (32-36); MEAN CORPUSCULAR VOLUME 97 fL (80-99); MEAN PLATELET VOLUME 10.5 fL (9.0-12.2); MONOCYTES # (AUTO) 1.1 10^3/uL (0.0-1.0); MONOCYTES % (AUTO) 14 % (0-12); NEUTROPHILS # (AUTO) 5.5 10^3/uL (1.8-7.8); NEUTROPHILS % (AUTO) 66 % (42-75); PLATELET COUNT 179 10^3/uL (130-400); WHITE BLOOD COUNT 8.4 10^3/uL (4.3-11.0)
[2021-03-28 13:42] LABS: ALBUMIN 3.6 GM/DL (3.2-4.5); BILIRUBIN,TOTAL 0.5 MG/DL (0.1-1.0); CALCIUM 9.3 MG/DL (8.5-10.1); CREATININE SERUM 0.71 MG/DL (0.60-1.30); POTASSIUM 4.4 MMOL/L (3.6-5.0); TOTAL PROTEIN 6.6 GM/DL (6.4-8.2)
[2021-06-21] MEDS ORDERED: APIX5TAB PO (15:42)
[2021-06-22] MEDS ORDERED: CLOP75TA28 PO (12:57)
[2021-06-22] MEDS ORDERED: ASPI-1238 PO (12:57)
[2021-06-22] MEDS ORDERED: LEVO88TA54 PO (12:57)
[2021-06-22] MEDS ORDERED: ACHD5005 PO (12:57)
[2021-06-22] MEDS ORDERED: SIMV20TA26 PO (12:57)
[2021-06-22] MEDS ORDERED: GABA300C PO (12:57)
[2021-06-22] MEDS ORDERED: PRAZ1CAP2 PO (12:57)
== END 2021-06-26 | disposition home or self-care (01) ==
LOC: ONC 13:11
PROVIDERS: ATTEND Internal Medicine Hematology & Oncology
DX: C34.12 Malignant neoplasm of upper lobe, left bronchus or lung (principal); C34.11 Malignant neoplasm of upper lobe, right bronchus or lung; C76.0 Malignant neoplasm of head, face and neck; I25.10 Atherosclerotic heart disease of native coronary artery without angina pectoris; J44.9 Chronic obstructive pulmonary disease, unspecified; I11.0 Hypertensive heart disease with heart failure; I50.32 Chronic diastolic (congestive) heart failure; E03.9 Hypothyroidism, unspecified; M48.54XA Collapsed vertebra, not elsewhere classified, thoracic region, initial encounter for fracture; F17.210 Nicotine dependence, cigarettes, uncomplicated; Z92.3 Personal history of irradiation; Z92.21 Personal history of antineoplastic chemotherapy; Z85.830 Personal history of malignant neoplasm of bone; Z98.890 Other specified postprocedural states; Z95.5 Presence of coronary angioplasty implant and graft; Z98.1 Arthrodesis status; Z79.899 Other long term (current) drug therapy
CPT/HCPCS: 80053; 85025; G0463; 99213

== ENCOUNTER 2021-06-21 10:16 | Inpatient (IN) | payer OTHER, MEDICARE ==
[~2021-06-21] VITALS: Ht 170 cm; Wt 66.0 kg
[2021-06-21] MEDS ORDERED: fentaNYL INJ 100 MCG/2 ML AMP ONE ×2 (10:29→10:50)
[2021-06-21 10:39] LABS: BASOPHILS % (AUTO) 0 % (0-10); EOSINOPHILS % (AUTO) 0 % (0-10); HEMATOCRIT 34 % (40-54); LYMPHOCYTES # (AUTO) 1.2 10^3/uL (1.0-4.0); LYMPHOCYTES % (AUTO) 10 % (12-44); MEAN CORPUSCULAR HEMOGLOBIN 31 pg (25-34); MEAN CORPUSCULAR HGB CONC 32 g/dL (32-36); MEAN CORPUSCULAR VOLUME 97 fL (80-99); MEAN PLATELET VOLUME 9.8 fL (9.0-12.2); MONOCYTES # (AUTO) 1.9 10^3/uL (0.0-1.0); MONOCYTES % (AUTO) 16 % (0-12); NEUTROPHILS # (AUTO) 8.7 10^3/uL (1.8-7.8); NEUTROPHILS % (AUTO) 73 % (42-75); PLATELET COUNT 303 10^3/uL (130-400)
[2021-06-21 10:51] LABS: POTASSIUM 4.3 MMOL/L (3.6-5.0)
[2021-06-21] MEDS ORDERED: fentaNYL INJ 100 MCG/2 ML AMP IVP STA (10:51)
[2021-06-21 10:52] LABS: CALCIUM 8.9 MG/DL (8.5-10.1); FIBRIN DEGRADATION PRODUCTS 1.61 UG/ML (0.00-0.49); INR 1.3 (0.8-1.4); PROTHROMBIN TIME PATIENT 16.2 SEC (12.2-14.7)
[2021-06-21 10:53] LABS: TOTAL PROTEIN 6.2 GM/DL (6.4-8.2)
[2021-06-21 10:55] LABS: BILIRUBIN,TOTAL 0.6 MG/DL (0.1-1.0)
[2021-06-21 10:57] LABS: CREATININE SERUM 0.66 MG/DL (0.60-1.30)
[2021-06-21] MEDS ORDERED: NS IV 500 ML 500 ML IV ONE (11:00)
--- NOTE | 2021-06-21 11:03 | ED General ---
General Chief Complaint: Respiratory Problems Stated Complaint: POST OP VASCULAR SURGERY/LOW O2 LEVELS/LOW BP Nursing Triage Note: PT TO RM 7 WITH COMPLAINT OF SOA, DIFFICULTY USING LEGS. PT HAD LEFT ILIAC STENT PLACED LAST WEEK AT [facility] BY DR LIN. PER SON, PTS O2 WAS 61-67% AT HOME. STATES PT HAS HX OF CANCER, AND HAS CONCERNING SPOTS ON LUNGS THAT WERE SEEN ON PET SCAN. Source of Information: Patient Exam Limitations: Other History of Present Illness Date Seen by Provider: Jun 21, 2021 Time Seen by Provider: 10:21 Initial Comments Very complicated case. Here with report of left leg pain that has worsened since iliac stent placed last at [facility] by Dr. Nielsen. States that he got out of the hospital on Friday and was doing okay but got home. He was due to start Eliquis and clopidogrel. It does not appear that he has started either of them appropriately. He has only taken 1 dose of clopidogrel and seems to be only loading his box with morning dose of Eliquis. Patient is somewhat poor historian. His son is staying with him currently. He does have home health nursing that is coming by a few times a week but his first visit was yesterday on that. Reports shortness of air and low O2 sat. Son states it was in the 60s at home. On arrival he was 72% on room air. He does not wear oxygen. Denies chest pain. States he is unable to move his left leg hardly at all now and that is a marked departure from previous. The procedure that he had done on apparently involved vein grafting that was removed from the left leg and placed in the right leg into the arterial system. Apparently he had improvement of the right leg at that time and the left leg was okay. By late Friday, the left leg was becoming increasingly weak and painful. He states now just feels like he has concrete in his leg. He is unable to stand to transfer. He apparently had PET scan done last week which does show some concerning findings for multiple lung lesions although we do not have the report here. This is based on information from the son who was in the meeting with the doctor. Patient does have history of oral cancer and lung cancer previously. Timing/Duration: 6-7 Days, Getting Worse Severity: Moderate, Severe Associated Systoms: No Chest Pain, No Cough, No Diaphoresis, No Fever/Chills; Loss of Appetite; No Nausea/Vomiting; Shortness of Air, Weakness Allergies and Home Medications Allergies Coded Allergies: No Known Drug Allergies (Unverified , 10/14/16) Patient Home Medication List Home Medication List Reviewed: Yes Amoxicillin/Potassium Clav (Augmentin 875-125 Tablet) 1 Each Tablet, 1 EACH PO BID Prescribed by: HUBERT CASANOVA on 07/08/191958 Aspirin (Aspir 81) 81 Mg Tablet.dr, 81 MG PO DAILY, (Reported) Entered as Reported by: NASIMA MOSELEY on 10/17/16 0749 Cefdinir (Cefdinir) 300 Mg Capsule, 300 MG PO BID Prescribed by: PANCHITO HANNA on 03/03/21 1302 Divalproex Sodium (Divalproex Sodium) 500 Mg Tablet.dr, 2 TAB PO HS, (Reported) Entered as Reported by: ROE YEUNG on 01/12/19 0935 Furosemide (Lasix) 40 Mg Tablet, 40 MG PO DAILY Prescribed by: ALVARO HAAS on 09/04/191751 Hydrocodone/Acetaminophen (Hydrocodone/Acetaminophen 5 MG/325 MG TAB) 1 Each Tablet, 1 TAB PO Q4-6HR Prescribed by: HUBERT CASANOVA on 07/08/191958 Melatonin (Melatonin) 3 Mg Tablet, 3 MG PO HS, (Reported) Entered as Reported by: ROE YEUNG on 01/12/19 09 Metoprolol Tartrate (Metoprolol Tartrate) 50 Mg Tablet, 50 MG PO BID, (Reported) Entered as Reported by: ROE YEUNG on 01/12/19934 Omeprazole (Omeprazole) 20 Mg Capsule.dr, 20 MG PO DAILY, (Reported) Entered as Reported by: ROE YEUNG on 01/12/19934 Potassium Chloride (Potassium Chloride) 20 Meq Tablet.er, 20 MEQ PO DAILY Prescribed by: ALVARO HAAS on 09/04/191751 Potassium Chloride (Potassium Chloride) 10 Meq Capsule.er, 10 MEQ PO DAILY Prescribed by: ALVARO HAAS on 09/04/191753 Prazosin HCl (Prazosin HCl) 2 Mg Capsule, 2 MG PO TID, (Reported) Entered as Reported by: ROE YEUNG on 01/12/19 09 Psyllium Seed (with Sugar) (Natural Fiber Lax Powder) 368 Gm Powder, 368 GM PO DAILY, (Reported) Entered as Reported by: ROE YEUNG on 01/12/19934 Sertraline HCl (Sertraline HCl) 25 Mg Tablet, 25 MG PO DAILY, (Reported) Entered as Reported by: ROE YEUNG on 01/12/19934 Simvastatin (Simvastatin) 40 Mg Tablet, 0.5 TAB PO HS, (Reported) Entered as Reported by: ROE YEUNG on 01/12/19934 Review of Systems Review of Systems Constitutional: see HPI EENTM: no symptoms reported; No nose congestion Respiratory: No cough; short of breath Cardiovascular: No chest pain, No edema, No palpitations Gastrointestinal: No diarrhea, No nausea, No vomiting Genitourinary: No dysuria, No pain Musculoskeletal: No back pain; muscle pain, muscle weakness Skin: change in color; No lesions Psychiatric/Neurological: Numbness (Bilateral lower extremities) Hematologic/Lymphatic: See HPI All Other Systems Reviewed Negative Unless Noted: Yes Past Fazysjl-Rvnozj-Gokqqs Hx Patient Social History Tobacco Use?: Yes Tobacco type used: Cigarettes Use of E-Cig and/or Vaping dev: No Substance use?: No Alcohol Use?: No Pt feels they are or have been: No Immunizations Up To Date PED Vaccines UTD: No First/Initial COVID19 Vaccinat: September COVID19 Vaccination Magdi: September COVID19 Vaccination Date: SEPTEMBER Seasonal Allergies Seasonal Allergies: No Past Medical History Surgeries: Yes (47 OPERATIONS TOTAL, RIGHT LEG-MULT SURGERIES-REPLACED WITH TITANIUM) Abdominal, Appendectomy, Cardiac, CABG, Coronary Stent, Eye Surgery, Orthopedic, Vascular Surgery Respiratory: Yes (LUNG CANCER) COPD Cardiac: Yes (STENTS, CABG, AAA-ENDOVASCUAR REPAIR WITH STENT/GRAFT 06/2019) Aneurysm, Chronic Edema/Swelling, Coronary Artery Disease, Heart Attack, Heart Murmur, High Cholesterol, Hypertension, Peripheral Vascular Neurological: Yes (TREMORS; POLYNEUROPATHY; CONGNITIVE IMPAIRMENT) Neuropathy, TIA Genitourinary: No Gastrointestinal: Yes (+FIT TEST 12/2018-S/P COLONOSCOPY AND POLYPECTOMY X 5- TUBULAR ADENOMAS) Gastroesophageal Reflux, Chronic Constipation, Polyps Musculoskeletal: Yes (R LEG-OSTEO/CHONDRAL SARCOMA;BACK/NECK SURGERIES;GEN WEAKNESS/GAIT DISTURBA) Arthritis, Chronic Back Pain Endocrine: Yes (diabetic prior to wt loss) Hypothyroidsim, Diabetes, Non-Insulin dep HEENT: Yes (cataracts removed, LARYNGEAL /TONSILLAR CANCER-S/P SURGERY ) Cataract, Dysphagia, Macular Degeneration Hearing Impairment: Hard of Hearing Cancer: Yes (LARYNGEAL, OSTEO/CHONDRAL SARCOMA RIGHT LEG; SCC LUNG/THROAT/TONSILS) Bone, Lung, Skin, Oral Did You Recieve Any Treatments: Yes What Type of Treatment Did You: Chemotherapy, Radiation, Surgical Intervention Psychosocial: Yes Sleep Difficulties, PTSD Integumentary: No Blood Disorders: No Family Medical History Reviewed Nursing Family Hx PSH: -47 SURGERIES PER PT--UNABLE TO LIST ALL -MULTIPLE BACK AND NECK SURGERIES, INCLUDING KYPHOPLASTY -MULTIPLE SURGERIES TO RIGHT LEG DUE TO OSTEO/CHONDRAL SARCOMA--RIGHT FEMUR REPLACED WITH TITANIUM, RIGHT HIP REPLACED? RIGHT KNEE REPLACED? 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 -LUNG BIOPSIES -STOMACH ULCER REPAIR -APPENDECTOMY COMPLICATED BY INTRA-ABDOMINAL ABSCESS WITH ADDITIONAL SURGERIES--MULTIPLE ABDOMINAL SURGERIES STARTING AT AGE 13 AND INTO TEENS -MULTIPLE HERNIA REPAIRS -COLONOSCOPIES/POLYPECTOMIES--LAST ONE 01/12/19--WITH POLYPECTOMY X 5 -CATARACT SURGERY Physical Exam Vital Signs Vital Signs - First Documented 06/21/21 10:20 Temp 35.9 Pulse 115 Resp 22 B/P (MAP) 130/80 (97) Pulse Ox 93 O2 Delivery Room Air O2 Flow Rate 10.00 Capillary Refill : Greater Than 3 Seconds Height, Weight, BMI Height: 5'7.00" Weight: 150lbs. 0.0oz. 68.925275zc; 22.00 BMI Method:Estimated General Appearance: Chronically ill, Mild Distress HEENT: PERRL/EOMI, Other (Erythematous with dry mucous membranes.) Neck: Non Tender, Supple Respiratory: No Respiratory Distress, Wheezing Cardiovascular: No Murmur, Tachycardia Gastrointestinal: Non Tender, Soft Back: Normal Inspection, No CVA Tenderness Extremity: No Calf Tenderness, Slow Capillary Refill (Greater than 10 seconds bilaterally. Unable to find dorsalis pedis or posterior tibial pulses via Doppler on either foot. Both feet are cold to touch. Both feet are mottled.) Neurologic/Psychiatric: Alert, Oriented x3 Skin: Normal Color, Cool (Bilateral lower extremity); No Rash Progress/Results/Core Measures Suspected Sepsis SIRS Temperature: Pulse: 115 Respiratory Rate: 22 Laboratory Tests 06/21/21 10:25: White Blood Count 12.0H Blood Pressure 130 /80 Mean: 97 Laboratory Tests 06/21/21 10:25: Creatinine 0.66, INR Comment 1.3, Platelet Count 303, Total Bilirubin 0.6 Results/Orders Lab Results Laboratory Tests Test 06/21/21 10:25 06/21/21 10:42 Range/Units White Blood Count 12.0 H 4.3-11.0 10^3/uL Red Blood Count 3.50 L 4.30-5.52 10^6/uL Hemoglobin 11.0 L 13.3-17.7 g/dL Hematocrit 34 L 40-54 % Mean Corpuscular Volume 97 80-99 fL Mean Corpuscular Hemoglobin 31 25-34 pg Mean Corpuscular Hemoglobin Concent 32 32-36 g/dL Red Cell Distribution Width 13.4 10.0-14.5 % Platelet Count 303 130-400 10^3/uL Mean Platelet Volume 9.8 9.0-12.2 fL Immature Granulocyte % (Auto) 1 % Neutrophils (%) (Auto) 73 42-75 % Lymphocytes (%) (Auto) 10 L 12-44 % Monocytes (%) (Auto) 16 H 0-12 % Eosinophils (%) (Auto) 0 0-10 % Basophils (%) (Auto) 0 0-10 % Neutrophils # (Auto) 8.7 H 1.8-7.8 10^3/uL Lymphocytes # (Auto) 1.2 1.0-4.0 10^3/uL Monocytes # (Auto) 1.9 H 0.0-1.0 10^3/uL Eosinophils # (Auto) 0.0 0.0-0.3 10^3/uL Basophils # (Auto) 0.0 0.0-0.1 10^3/uL Immature Granulocyte # (Auto) 0.1 0.0-0.1 10^3/uL Prothrombin Time 16.2 H 12.2-14.7 SEC INR Comment 1.3 0.8-1.4 D-Dimer 1.61 H 0.00-0.49 UG/ML Sodium Level 129 L 135-145 MMOL/L Potassium Level 4.3 3.6-5.0 MMOL/L Chloride Level 89 L 98-107 MMOL/L Carbon Dioxide Level 29 21-32 MMOL/L Anion Gap 11 5-14 MMOL/L Blood Urea Nitrogen 16 7-18 MG/DL Creatinine 0.66 0.60-1.30 MG/DL Estimat Glomerular Filtration Rate 118 BUN/Creatinine Ratio 24 Glucose Level 151 H 70-105 MG/DL Calcium Level 8.9 8.5-10.1 MG/DL Corrected Calcium 9.7 8.5-10.1 MG/DL Total Bilirubin 0.6 0.1-1.0 MG/DL Aspartate Amino Transf (AST/SGOT) 97 H 5-34 U/L Alanine Aminotransferase (ALT/SGPT) 48 0-55 U/L Alkaline Phosphatase 55 40-136 U/L Total Protein 6.2 L 6.4-8.2 GM/DL Albumin 3.0 L 3.2-4.5 GM/DL My Orders Orders - PANCHITO HANNA MD Fentanyl Inj (Sublimaze Injection) (06/21/21 10:29) Cbc With Automated Diff (06/21/21 10:33) Comprehensive Metabolic Panel (06/21/21 10:33) Fibrin Degradation Products (06/21/21 10:33) Protime With Inr (06/21/21 10:33) Ed Iv/Invasive Line Start (06/21/21 10:51) O2 (06/21/21 10:51) Monitor-Rhythm Ecg Trace Only (06/21/21 10:51) Fentanyl Inj (Sublimaze Injection) (06/21/21 10:51) Ed Iv/Invasive Line Start (06/21/21 10:51) Ns Iv 500 Ml (Sodium Chloride 0.9%) (06/21/21 11:00) Us Karly Lower Ext [id number] (06/21/21 10:51) Fentanyl Inj (Sublimaze Injection) (06/21/21 10:50) Chest 1 View, Ap/Pa Only (06/21/21 10:56) Heparin Drip [id number] Unit/500ml (Heparin (06/21/21 11:45) Heparin (Bolus Per Protocol) (Heparin (B (06/21/21 11:45) Outside Films For Comparison (06/15/21 ) Hydromorphone Injection (Dilaudid Inject (06/21/21 12:30) Hydromorphone Injection (Dilaudid Inject (06/21/21 13:15) Medications Given in ED Current Medications Medications Dose Ordered Sig/Latrell Route Start Time Stop Time Status Last Admin Dose Admin Fentanyl Citrate 100 mcg STK-MED ONCE .ROUTE 06/21/21 10:29 06/21/21 10:31 DC 06/21/21 10:39 50 MCG Heparin Sodium (Porcine) HEPARIN FULL PROTOC... ONCE ONCE IV 06/21/21 11:45 06/21/21 11:46 DC 06/21/21 12:04 5,000 UNIT Heparin Sodium/ Dextrose 500 ml @ 0 mls/hr Q0M ONCE IV 06/21/21 11:45 06/21/21 11:46 DC 06/21/21 12:11 24 MLS/HR Hydromorphone HCl 0.5 mg ONCE ONCE IV 06/21/21 12:30 06/21/21 12:31 DC 06/21/21 12:38 0.5 MG Sodium Chloride 500 ml @ 0 mls/hr Q0M ONCE IV 06/21/21 11:00 06/21/21 11:01 DC 06/21/21 11:17 0 MLS/HR Vital Signs/I&O 06/21/21 06/21/21 10:20 10:20 Temp 35.9 Pulse 115 Resp 22 B/P (MAP) 130/80 (97) Pulse Ox 93 O2 Delivery Room Air OxyMask O2 Flow Rate 10.00 Capillary Refill : Greater Than 3 Seconds Blood Pressure Mean: 97 Progress Note : Progress Note Seen and evaluated. IV x2, labs, normal saline 500 mL bolus and O2 ordered. Bilateral lower extremity arterial ultrasound ordered due to concerns about arterial occlusion. We have gone through his medications and counted doses and found that he has not taking his clopidogrel correctly and it does not appear that he is taking his Eliquis correctly by dose count. He is only off by 2 on the Eliquis and by 4 on the clopidogrel. There is also concerns related to the lung findings. Given his history of cancer and recent surgery, he is at marked increased for vascular clotting. We will verify with ultrasound. May need emergent transfer and we will try [facility] in [facility] if needed. Chest x-ray ordered. 1121: Notified by ultrasound that there is no flow to the right leg and no flow to the distal left leg. Concern for blockage at the iliac bifurcation. 1126: Initiated call with [facility] in [place], [place]. 1145: Talked at length about the case with Dr. Nielsen at [facility] in [place], [place]. He is the vascular surgeon that performed the procedure last . He states that there were several issues with this gentleman. First and foremost, he has extremely bad vascular disease that is not amiable to surgery and his attempt on was a last chance effort to try to get some flow to the right leg. He did discuss amputation with the patient as well as palliative options and did not believe that the procedure would work but he wanted to give it a try. Patient does not want to have amputation. Amputation is also challenging due to the fact that he has titanium rods throughout the right femur which would prevent AKA without special tools which [place] does not have. He would need to go to the [place] or somewhere higher level for him. He does state that he did have conversation with the patient and family regarding palliative care and actually believes that there is likely the best option. He did have PET scan done and he reports that there was a lesion in the left femur as well as in the chest concerning for recurrence of bone/lung cancer. Patient was going to follow-up on that at some point. At this point, palliative care may be best case for the patient. 1202: I did speak with the son about palliative care and he is in agreement and we will talk with the patient more. He is currently completing his ultrasound which shows only 1 small collateral to the left leg but otherwise no significant flow and no flow below the knee. We will initiate heparin to see if there is any possibility for collateral flow into either leg which would benefit him palliatively at least. Patient did receive additional dose of fentanyl 75 mcg IV for pain which is helped. We will get Swan catheter placed as patient feels the need to urinate. Afterwards, I will have palliative care and hospice discussion with the patient and family. Monitor patient. 1323: I have had long discussion with the family regarding plan of care. After discussion regarding conversation with vascular surgeon and patient's wishes, we will go ahead and admit the patient for pain control and continuing heparin with the idea to convert back to oral anticoagulants. Previously on Eliquis and clopidogrel. I had long discussion related to palliative care and hospice options. He is from here locally and patient's son is from [place] and his daughter is from [place]. They will discuss amongst themselves as far as location to return to but would like to pursue hospice. Palliative care consult placed. We did discuss quality versus quantity and patient does not want to have amputations (which would be limited and greatly difficulty to titanium aye in the right femur) and wants to have pain control. We will pursue this option. Dilaudid 0.5 mg IV given and repeated x1. Patient does have oxygen requirements now which is new for him and his O2 sat is 88 to 93% on 3 L via nasal cannula and he is comfortable. Overall patient be admitted, inpatient status with palliative consult for hospice, location to be determined and care location to be determined. This was discussed with Dr. Webb at length who agrees with the plan. All questions answered with the family. Patient will be DO NOT RESUSCITATE. Diagnostic Imaging Diagonstic Imaging: Xray Plain Films/CT/US/NM/MRI: chest Comments [facility], [facility]. [place], [place] NAME: DIAZ MICHAELS [facility] REC#: [id number] PT STATUS: REG ER : 1945 PHYSICIAN: PANCHITO HANNA MD ADMIT DATE: 06/21/21/ER Signed Date of Exam:06/21/21 CHEST 1 VIEW, AP/PA ONLY EXAM: CHEST 1 VIEW, AP/PA ONLY INDICATION: Shortness of air. Hypoxia. COMPARISON: 09/04/2019. FINDINGS: Normal heart size and central pulmonary vascularity. Stable elevation of left hemidiaphragm with mild atelectasis in the left lung base. New atelectasis in the right lung base. No pleural effusion or pneumothorax. No acute osseous findings. IMPRESSION: 1. Mild atelectasis in the lung bases. 2. Stable elevation left hemidiaphragm. Dictated by: Dictated on workstation # [id number] Dict: 06/21/21 1230 Trans: 06/21/21 1316 [facility] [id number] Interpreted by: MARYBETH LEGER MD Electronically signed by: MARYBETH LEGER MD 06/21/216 Reviewed: Reviewed by Me Diagonstic Imaging: Ultrasound Plain Films/CT/US/NM/MRI: leg Comments [email or web address]. [place], [place] NAME: DIAZ MICHAELS [facility] REC#: [id number] PT STATUS: REG ER : 1945 PHYSICIAN: PANCHITO HANNA MD ADMIT DATE: 06/21/21/ER Signed Date of Exam:06/21/21 US KARLY LOWER EXT [id number] PROCEDURE: US Bilateral lower extremity arterial. TECHNIQUE: Multiple real-time grayscale images are obtained through both lower extremity arterial systems with color Doppler imaging and color Doppler spectral analysis. INDICATION: Bilateral pulseless extremities. COMPARISON: CTA aorta with bilateral runoff 07/08/2019. FINDINGS: There is no detectable flow within the bilateral common femoral arteries or more distant arteries in the lower extremities. There is only trace non-pulsatile flow seen in the distal left superficial femoral and popliteal arteries. There is also some nonpulsatile flow seen in the distal left calf. IMPRESSION: Findings consistent with a high-grade proximal stenosis or occlusion with virtually no detectable flow in the bilateral lower extremity arteries. There is only trace nonpulsatile flow seen in the distal left superficial femoral and popliteal arteries and trace non-pulsatile flow seen in the distal left calf, possibly posterior tibial artery. Findings discussed with Dr. Panchito Hanna at 12:28 PM on 06/21/2021. Dictated by: Dictated on workstation # [id number] Dict: 06/21/21 1218 Trans: 06/21/21 1317 [facility] [id number] Interpreted by: MARYBETH LEGER MD Electronically signed by: MARYBETH LEGER MD 06/21/217 Reviewed: Discussed w/Radiologist Critical Care Note Critical Care Start Time: 10:21 Stop Time: 13:23 Total Time (minutes) 60 Progress Times excludes any separately billable procedures. See progress note for details. 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 Referrals: AISLINN ROBLES DO (PCP/Family) Primary Care Physician PANCHITO HANNA MD Jun 21, 2021 11:03
[2021-06-21] MEDS ORDERED: HEParin DRIP 25000 UNIT/500ML 500 ML IV ONE (11:45)
[2021-06-21] MEDS ORDERED: HEParin 1000 UNIT/ML (10ML VIAL) FOR BOLUS IV ONE (11:45)
[2021-06-21] MEDS ORDERED: HYDROmorphone 2 MG/ML VIAL (DILAUDID) IV ONE ×3 (12:30→17:45)
--- NOTE | 2021-06-21 12:32 | Diagnostic Imaging Report ---
PROCEDURE: US Bilateral lower extremity arterial. TECHNIQUE: Multiple real-time grayscale images are obtained through both lower extremity arterial systems with color Doppler imaging and color Doppler spectral analysis. INDICATION: Bilateral pulseless extremities. COMPARISON: CTA aorta with bilateral runoff 07/08/2019. FINDINGS: There is no detectable flow within the bilateral common femoral arteries or more distant arteries in the lower extremities. There is only trace non-pulsatile flow seen in the distal left superficial femoral and popliteal arteries. There is also some nonpulsatile flow seen in the distal left calf. IMPRESSION: Findings consistent with a high-grade proximal stenosis or occlusion with virtually no detectable flow in the bilateral lower extremity arteries. There is only trace nonpulsatile flow seen in the distal left superficial femoral and popliteal arteries and trace non-pulsatile flow seen in the distal left calf, possibly posterior tibial artery. Findings discussed with Dr. Panchito Casanova at 12:28 PM on 06/21/2021. Dictated by: Dictated on workstation # [id number]
--- NOTE | 2021-06-21 12:33 | Diagnostic Imaging Report ---
EXAM: CHEST 1 VIEW, AP/PA ONLY INDICATION: Shortness of air. Hypoxia. COMPARISON: 09/04/2019. FINDINGS: Normal heart size and central pulmonary vascularity. Stable elevation of left hemidiaphragm with mild atelectasis in the left lung base. New atelectasis in the right lung base. No pleural effusion or pneumothorax. No acute osseous findings. IMPRESSION: 1. Mild atelectasis in the lung bases. 2. Stable elevation left hemidiaphragm. Dictated by: Dictated on workstation # [id number]
[2021-06-21] MEDS ORDERED: APIX5TAB PO (15:42)
[2021-06-21 15:57] VITALS: BP 165/72
[2021-06-21] MEDS ORDERED: HEParin DRIP 25000 UNIT/500ML 500 ML IV SCH (16:00)
[2021-06-21] MEDS: NS IV 1000 ML 1,000 ML IV SCH (16:03)
[2021-06-21] MEDS ORDERED: HYDROmorphone 2 MG/ML VIAL (DILAUDID) IV PRN ×2 (16:30→17:30)
[2021-06-21] MEDS ORDERED: HYDROmorphone 2 MG/ML VIAL (DILAUDID) IVP ONE (17:30)
[2021-06-21] MEDS ORDERED: HYDROmorphone 2 MG/ML VIAL (DILAUDID) ONE (19:15)
[2021-06-21] MEDS: HYDROmorphone 2 MG/ML VIAL (DILAUDID) IV PRN (19:18)
[2021-06-21 19:36] VITALS: BP 107/51
[2021-06-21] MEDS: APIXABAN 5 MG (ELIQUIS) TABLET PO SCH (21:35)
[2021-06-21 23:47] VITALS: BP 128/60
[2021-06-22] MEDS: HYDROmorphone 2 MG/ML VIAL (DILAUDID) IV PRN ×5 (01:10→10:39)
[2021-06-22 03:23] VITALS: BP 143/64
[2021-06-22] MEDS: NS IV 1000 ML 1,000 ML IV SCH (03:29)
[2021-06-22 08:00] VITALS: BP 138/62
[2021-06-22] MEDS: APIXABAN 5 MG (ELIQUIS) TABLET PO SCH ×2 (08:45→20:39)
[2021-06-22] MEDS ORDERED: SALIVA STIMULANT MOUTH SPRAY (BIOTENE) 1.5 OZ MM PRN (10:45)
[2021-06-22] MEDS ORDERED: NS IV 1000 ML 1,000 ML IV SCH (10:45)
[2021-06-22] MEDS ORDERED: NALOXONE 0.4 MG/ML 1 ML (NARCAN) VIAL IV PRN (10:45)
[2021-06-22] MEDS ORDERED: ONDANSETRON 4 MG/2 ML (SDV) Z0FRAN IVP PRN (10:45)
[2021-06-22] MEDS ORDERED: BISACODYL 10 MG SUPP (DULCOLAX) PR PRN (10:45)
[2021-06-22] MEDS ORDERED: PROMETHAZINE INJ 25 MG/ML (PHENERGAN) AMP IVP PRN (10:45)
[2021-06-22] MEDS ORDERED: GLYCOPYRROLATE 0.2 MG/ML (ROBINUL) 2 ML VIAL IV PRN (10:45)
[2021-06-22] MEDS ORDERED: ONDANSETRON 4 MG/2 ML (SDV) Z0FRAN IV PRN (10:45)
[2021-06-22] MEDS ORDERED: ACETAMINOPHEN 650 MG SUPP (TYLENOL) PR PRN (10:45)
[2021-06-22] MEDS ORDERED: diphenhydrAMINE 50 MG/ML INJ (BENADRYL) IV PRN (10:45)
[2021-06-22] MEDS ORDERED: METOCLOPRAMIDE INJ 10 MG/2 ML (REGLAN) IV PRN (10:45)
[2021-06-22] MEDS ORDERED: ARTIFICAL TEARS 0.4 ML UNIT DOSE (REFRESH PLUS) OU PRN (10:45)
[2021-06-22] MEDS ORDERED: RT-ALBUTEROL/IPRATROPIUM 3 ML (DUONEB) VIAL INH PRN (10:45)
--- NOTE | 2021-06-22 11:20 | History & Physical-Hospitalist ---
History of Present Illness HPI/Chief Complaint Solitario Peck is a 76 year old male who presented with intractable pain in his bilateral legs. He has a history of PAD and has followed with Dr. Wolf. His disease is not amenable to any interventions and the only option left would be amputations which he is adamantly opposed to. He would like to be made comfortable. He is upset that his pain has not been well controlled thus far. His adult children are at the bedside and in agreement with his decision and plan. Source: patient, family Exam Limitations: no limitations Date Seen 06/22/21 Time Seen by a Provider: 10:30 Attending Physician Pb Orozco MD PCP Ridge Alves DO Referring Physician Date of Admission Jun 21, 2021 at 13:23 Home Medications & Allergies Home Medications Reviewed patient Home Medication Reconciliation performed by pharmacy medication reconciliations satellite technician and/or nursing. Patients Allergies have been reviewed. Allergies Allergies Coded Allergies No Known Drug Allergies (Unverified10/14/16) Past [id number] Hx Patient Social History Tobacco Use?: Yes Tobacco type used: Cigarettes Smoking Status: Current Everyday Smoker Use of E-Cig and/or Vaping dev: No Substance use?: No Alcohol Use?: No Pt feels they are or have been: No Immunizations Up To Date First/Initial COVID19 Vaccinat: SEPTEMBER 2019 Second COVID19 Vaccination Magdi: SEPTEMBER 2019 PED Vaccines UTD: No Seasonal Allergies Seasonal Allergies: No Current Status Advance Directives: Yes Advance Directive Location: Home Communicates: Verbally Primary Language: Turkish Preferred Spoken Language: Turkish Is interpretation needed?: No Sensory deficits: Vision impairment, Hearing impairment Implanted or Applied Medical D: Orthopedic hardware, Stents Past Medical History Surgeries: Abdominal, Appendectomy, Cardiac, CABG, Coronary Stent, Eye Surgery, Orthopedic, Vascular Surgery COPD Aneurysm, Chronic Edema/Swelling, Coronary Artery Disease, Heart Attack, Heart Murmur, High Cholesterol, Hypertension, Peripheral Vascular Neuropathy, TIA Gastroesophageal Reflux, Chronic Constipation, Polyps Arthritis, Chronic Back Pain Hypothyroidsim, Diabetes, Non-Insulin dep Cataract, Dysphagia, Macular Degeneration Hearing Impairment: Hard of Hearing Bone, Lung, Skin, Oral Did You Recieve Any Treatments: Yes What Type of Treatment Did You: Chemotherapy, Radiation, Surgical Intervention Sleep Difficulties, PTSD Blood Disorders: No Family Medical History Reviewed Nursing Family Hx No Pertinent Family Hx PSH: -47 SURGERIES PER PT--UNABLE TO LIST ALL -MULTIPLE BACK AND NECK SURGERIES, INCLUDING KYPHOPLASTY -MULTIPLE SURGERIES TO RIGHT LEG DUE TO OSTEO/CHONDRAL SARCOMA--RIGHT FEMUR REPLACED WITH TITANIUM, RIGHT HIP REPLACED? RIGHT KNEE REPLACED? 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 -LUNG BIOPSIES -STOMACH ULCER REPAIR -APPENDECTOMY COMPLICATED BY INTRA-ABDOMINAL ABSCESS WITH ADDITIONAL SURGERIES--MULTIPLE ABDOMINAL SURGERIES STARTING AT AGE 13 AND INTO TEENS -MULTIPLE HERNIA REPAIRS -COLONOSCOPIES/POLYPECTOMIES--LAST ONE 01/12/19--WITH POLYPECTOMY X 5 -CATARACT SURGERY Review of Systems Constitutional: no symptoms reported EENTM: no symptoms reported Respiratory: no symptoms reported Cardiovascular: no symptoms reported Gastrointestinal: no symptoms reported Genitourinary: no symptoms reported Musculoskeletal: muscle pain Skin: no symptoms reported Psychiatric/Neurological: No Symptoms Reported Physical Exam Physical Exam Vital Signs Vital Signs - First Documented 06/21/21 10:20 Temp 35.9 Pulse 115 Resp 22 B/P (MAP) 130/80 (97) Pulse Ox 93 O2 Delivery Room Air O2 Flow Rate 10.00 Capillary Refill : Greater Than 3 Seconds Height, Weight, BMI Height: 5'7.00" Weight: 150lbs. 0.0oz. [id number]; 22.83 BMI Method:Estimated General Appearance: Chronically ill, Mild Distress (uncomfortable) HEENT: PERRL/EOMI, Pharynx Normal Neck: Normal Inspection, Supple Respiratory: Lungs Clear, Normal Breath Sounds, No Respiratory Distress Cardiovascular: Regular Rate, Rhythm, No Edema, No Murmur; No Normal Peripheral Pulses Gastrointestinal: Normal Bowel Sounds, Non Tender, Soft Extremity: Non Tender, No Pedal Edema Neurologic/Psychiatric: Alert, Oriented x3, Other (agitated) Skin: Cool, Pallor Results Results/Procedures Labs Laboratory Tests 06/21/21 10:25 Patient resulted labs reviewed. Imaging: Reviewed Imaging Report Assessment/Plan Admission Diagnosis Intractable pain due to acute limb ischemia Admission Status: Inpatient Order (span 2 midnights) Reason for Inpatient Admission: Pain control Limb ischemia Assessment and Plan Intractable pain Ischemia of both lower extremities Peripheral vascular disease Goals of care discussion No further treatment options available Refused amputations Wants to pursue comfort measures and/or hospice Begin Dilaudid CRITICAL CARE TRANSPORT NURSE Comfort care order set placed Palliative care consulted Working toward [facility] hospice discharge Metastatic lung cancer to the bone Previously received treatment Recent PET/CT reportedly showed lung lesions and bone lesion HTN HLD Afib Depression Critical Care Critically Ill Patient Diagnosis/Problems Diagnosis/Problems (1) Intractable pain Status: Acute (2) Ischemia of both lower extremities Status: Acute (3) Peripheral vascular disease Status: Acute (4) Lung cancer metastatic to bone Status: Acute PB OROZCO MD Jun 22, 2021 11:20
[2021-06-22] MEDS: HYDROmorphone PCA 20 MG/100 ML NS IV PRN (11:27)
[2021-06-22 11:50] VITALS: BP 117/61
[2021-06-22] MEDS ORDERED: SCOPOLAMINE 1.5 MG (TRANSDERM-SCOP) PATCH TD NR (12:15)
[2021-06-22] MEDS ORDERED: ASPI-1238 PO (12:57)
[2021-06-22] MEDS ORDERED: ACHD5005 PO (12:57)
[2021-06-22] MEDS ORDERED: PRAZ1CAP2 PO (12:57)
[2021-06-22] MEDS ORDERED: SIMV20TA26 PO (12:57)
[2021-06-22] MEDS ORDERED: CLOP75TA28 PO (12:57)
[2021-06-22] MEDS ORDERED: LEVO88TA54 PO (12:57)
[2021-06-22] MEDS ORDERED: GABA300C PO (12:57)
[2021-06-23] MEDS: NS IV 1000 ML 1,000 ML IV SCH (00:11)
[2021-06-23] MEDS: LORazepam INJ 2 MG/ML (ATIVAN) VIAL IVP PRN ×2 (00:27→16:53)
[2021-06-23] MEDS: HYDROmorphone PCA 20 MG/100 ML NS IV PRN (08:55)
[2021-06-23] MEDS: SENNA W/DOCUSATE (SENOKOT S) TABLET PO SCH (08:57)
[2021-06-23] MEDS: APIXABAN 5 MG (ELIQUIS) TABLET PO SCH ×2 (08:57→20:53)
--- NOTE | 2021-06-23 11:27 | Progress Note - Hospitalist ---
Subjective HPI/CC On Admission Date Seen by Provider: Jun 23, 2021 Time Seen by Provider: 10:40 Solitario Peck is a 76 year old male who presented with intractable pain in his bilateral legs. He has a history of PAD and has followed with Dr. Wolf. His disease is not amenable to any interventions and the only option left would be amputations which he is adamantly opposed to. He would like to be made comfortable. He is upset that his pain has not been well controlled thus far. His adult children are at the bedside and in agreement with his decision and plan. Subjective/Events-last exam He is doing better today. His pain is well controlled. He is complaining of right heel pain. He denies nausea. He denies breathing trouble. His family is at the bedside. Objective Exam Vital Signs Vital Signs Date Time Temp Pulse Resp B/P (MAP) Pulse Ox O2 Delivery O2 Flow Rate FiO2 06/23/21 08:00 Nasal Cannula 3.00 06/23/21 07:00 20 06/22/21 11:50 36.3 91 117/61 (79) 97 Capillary Refill : Greater Than 3 Seconds General Appearance: No Apparent Distress, Chronically ill Respiratory: Lungs Clear, Normal Breath Sounds, No Respiratory Distress Cardiovascular: Regular Rate, Rhythm, No Edema, No Murmur Gastrointestinal: Normal Bowel Sounds, Non Tender, Soft Extremity: No Pedal Edema, Slow Capillary Refill Neurologic/Psychiatric: Alert, Disoriented Skin: Cool, Erythema (bilateral feet) Results/Procedures Lab Patient resulted labs reviewed. Assessment/Plan Assessment and Plan Assess & Plan/Chief Complaint Intractable pain Ischemia of both lower extremities Peripheral vascular disease Delirium Comfort measures only status Continue comfort measures Begin Fentanyl patch Continue Dilaudid REAL ESTATE RENTAL AGENT, stop continuous infusion Palliative care following Working toward [facility] hospice discharge Metastatic lung cancer to the bone Previously received treatment Recent PET/CT reportedly showed lung lesions and bone lesion HTN HLD Afib Depression Diagnosis/Problems Diagnosis/Problems (1) Intractable pain Status: Acute (2) Ischemia of both lower extremities Status: Acute (3) Peripheral vascular disease Status: Acute (4) Lung cancer metastatic to bone Status: Acute (5) Comfort measures only status Status: Acute (6) Delirium Status: Acute PB OROZCO MD Jun 23, 2021 11:27
[2021-06-23] MEDS: fentaNYL PATCH 100 MCG (DURAGESIC) TD SCH (11:35)
[2021-06-23] MEDS ORDERED: HYDROmorphone 2 MG/ML VIAL (DILAUDID) IV ONE (16:45)
[2021-06-24] MEDS: NS IV 1000 ML 1,000 ML IV SCH (05:32)
[2021-06-24] MEDS: SENNA W/DOCUSATE (SENOKOT S) TABLET PO SCH (08:12)
[2021-06-24] MEDS: APIXABAN 5 MG (ELIQUIS) TABLET PO SCH (08:12)
[2021-06-24] MEDS: LORazepam INJ 2 MG/ML (ATIVAN) VIAL IVP PRN ×3 (10:36→16:50)
[2021-06-24] MEDS: HYDROmorphone PCA 20 MG/100 ML NS IV PRN (11:21)
--- NOTE | 2021-06-24 11:29 | Progress Note - Hospitalist ---
Subjective HPI/CC On Admission Date Seen by Provider: Jun 24, 2021 Time Seen by Provider: 10:30 Solitario Peck is a 76 year old male who presented with intractable pain in his bilateral legs. He has a history of PAD and has followed with Dr. Wolf. His disease is not amenable to any interventions and the only option left would be amputations which he is adamantly opposed to. He would like to be made comfortable. He is upset that his pain has not been well controlled thus far. His adult children are at the bedside and in agreement with his decision and plan. Subjective/Events-last exam He is confused. He is indicating that he wants to expedite his . He appears anxious. He does not appear to be in pain except when moving in bed. Objective Exam Vital Signs Vital Signs Date Time Temp Pulse Resp B/P (MAP) Pulse Ox O2 Delivery O2 Flow Rate FiO2 06/24/21 08:55 Nasal Cannula 1.50 06/24/21 07:00 20 06/23/21 11:34 94 06/22/21 11:50 36.3 91 117/61 (79) Capillary Refill : Greater Than 3 Seconds General Appearance: No Apparent Distress, Anxious, Chronically ill Respiratory: Lungs Clear, Normal Breath Sounds, No Respiratory Distress Cardiovascular: Regular Rate, Rhythm, No Murmur Gastrointestinal: Normal Bowel Sounds, Non Tender, Soft Extremity: No Pedal Edema, Slow Capillary Refill Neurologic/Psychiatric: Alert, Disoriented Skin: Ecchymosis, Other (venous stasis dermatitis) Results/Procedures Lab Patient resulted labs reviewed. Assessment/Plan Assessment and Plan Assess & Plan/Chief Complaint Intractable pain Ischemia of both lower extremities Peripheral vascular disease Delirium Comfort measures only status Continue comfort measures Continue Fentanyl patch Continue Dilaudid BLANKET WINDER HELPER Palliative care following Metastatic lung cancer to the bone Previously received treatment Recent PET/CT reportedly showed lung lesions and bone lesion HTN HLD Afib Depression Diagnosis/Problems Diagnosis/Problems (1) Intractable pain Status: Acute (2) Ischemia of both lower extremities Status: Acute (3) Peripheral vascular disease Status: Acute (4) Lung cancer metastatic to bone Status: Acute (5) Comfort measures only status Status: Acute (6) Delirium Status: Acute PB OROZCO MD Jun 24, 2021 11:29
[2021-06-24] MEDS ORDERED: LORazepam INJ 2 MG/ML (ATIVAN) VIAL IVP ONE (18:30)
[2021-06-25] MEDS: APIXABAN 5 MG (ELIQUIS) TABLET PO SCH ×3 (03:55→21:37)
[2021-06-25] MEDS: SENNA W/DOCUSATE (SENOKOT S) TABLET PO SCH (07:47)
[2021-06-25] MEDS: NS IV 1000 ML 1,000 ML IV SCH (07:55)
[2021-06-25] MEDS: LORazepam INJ 2 MG/ML (ATIVAN) VIAL IVP PRN (07:55)
[2021-06-25] MEDS: HYDROmorphone PCA 20 MG/100 ML NS IV PRN (09:17)
[2021-06-25] MEDS ORDERED: fentaNYL PATCH 25 MCG (DURAGESIC) TOP SCH (12:00)
[2021-06-25] MEDS ORDERED: SCOPOLAMINE PATCH REMOVAL TP SCH (12:15)
[2021-06-25] MEDS: LORazepam INJ 2 MG/ML (ATIVAN) VIAL IV SCH ×2 (12:18→18:19)
[2021-06-25] MEDS: fentaNYL PATCH 100 MCG (DURAGESIC) TD SCH (12:26)
--- NOTE | 2021-06-25 13:46 | Progress Note - Hospitalist ---
Subjective HPI/CC On Admission Date Seen by Provider: Jun 25, 2021 Time Seen by Provider: 11:35 Solitario Peck is a 76 year old male who presented with intractable pain in his bilateral legs. He has a history of PAD and has followed with Dr. Wolf. His disease is not amenable to any interventions and the only option left would be amputations which he is adamantly opposed to. He would like to be made comfortable. He is upset that his pain has not been well controlled thus far. His adult children are at the bedside and in agreement with his decision and plan. Subjective/Events-last exam He is sleeping. He responds to minimal physical stimulation. He appears comfortable at this time. Objective Exam Vital Signs Vital Signs Date Time Temp Pulse Resp B/P (MAP) Pulse Ox O2 Delivery O2 Flow Rate FiO2 06/25/21 09:07 Room Air 06/24/21 21:00 20 06/24/21 08:55 1.50 06/23/21 11:34 94 06/22/21 11:50 36.3 91 117/61 (79) Capillary Refill : Greater Than 3 Seconds General Appearance: No Apparent Distress, Chronically ill Respiratory: Lungs Clear, No Respiratory Distress Cardiovascular: Regular Rate, Rhythm, No Edema Gastrointestinal: Normal Bowel Sounds, Soft Extremity: Non Tender, No Pedal Edema Neurologic/Psychiatric: Other (lethargic, minimally responsive) Skin: Cool, Other (venous stasis dermatitis) Results/Procedures Lab Patient resulted labs reviewed. Assessment/Plan Assessment and Plan Assess & Plan/Chief Complaint Intractable pain Ischemia of both lower extremities Peripheral vascular disease Delirium Comfort measures only status Continue comfort measures Increase Fentanyl patch Stop Dilaudid SALES CONTRACT ADMINISTRATOR Add IV Fentanyl as needed Schedule Ativan, plus as needed Palliative care following May need [facility] hospice admission for pain control Metastatic lung cancer to the bone Previously received treatment Recent PET/CT reportedly showed lung lesions and bone lesion HTN HLD Afib Depression Diagnosis/Problems Diagnosis/Problems (1) Intractable pain Status: Acute (2) Ischemia of both lower extremities Status: Acute (3) Peripheral vascular disease Status: Acute (4) Lung cancer metastatic to bone Status: Acute (5) Comfort measures only status Status: Acute (6) Delirium Status: Acute PB OROZCO MD Jun 25, 2021 13:46
[2021-06-25] MEDS: fentaNYL INJ 100 MCG/2 ML AMP IV PRN (18:18)
[2021-06-26] MEDS: LORazepam INJ 2 MG/ML (ATIVAN) VIAL IV SCH ×2 (00:07→05:09)
[2021-06-26] MEDS: fentaNYL INJ 100 MCG/2 ML AMP IV PRN ×3 (05:49→09:33)
[2021-06-26] MEDS: APIXABAN 5 MG (ELIQUIS) TABLET PO SCH (08:16)
[2021-06-26] MEDS: SENNA W/DOCUSATE (SENOKOT S) TABLET PO SCH (08:16)
[2021-06-26] MEDS: LORazepam INJ 2 MG/ML (ATIVAN) VIAL IVP PRN (08:35)
[2021-06-26] MEDS: fentaNYL PATCH 100 MCG (DURAGESIC) TD SCH (10:26)
[2021-06-26] MEDS ORDERED: PATCH REMOVAL TP SCH (12:00)
--- NOTE | 2021-06-26 13:46 | Discharge Summary ---
Discharge Summary Hospital Course Problems/Dx: (1) Intractable pain Status: Acute (2) Ischemia of both lower extremities Status: Acute (3) Peripheral vascular disease Status: Acute (4) Lung cancer metastatic to bone Status: Acute (5) Comfort measures only status Status: Acute (6) Delirium Status: Acute Hospital Course Date of Admission: Jun 21, 2021 at 13:23 Admission Diagnosis : PAD with bilateral lower limb ischemia Family Physician/Provider: Ridge Alves DO Date of Discharge: 06/26/21 Discharge Diagnosis: PAD with bilateral lower limb ischemia, metastatic lung cancer to the bone Hospital Course: Solitario Peck is a 76 year old male with PMH PAD, metastatic lung cancer, who presented with bilateral lower extremity pain. He has PAD not amenable to intervention according to his surgeon, Dr. Wolf. The only treatment option at this point would be bilateral lower extremity amputation. He does not want to undergo amputation under any circumstances. He also has metastatic lung cancer to the bone. He has been having intractable pain. He was treated with a Dilaudid BARREL RIBS SOLDERER and was transitioned to Fentanyl patches and IV Fentanyl pushes as needed. He elected to pursue hospice and is being discharged to [facility] with [facility]. Labs and Pending Lab Test: Home Meds Active Reported Hydrocodone-Acetamin 5-325 mg (Hydrocodone/Acetaminophen) 1 Each Tablet 1-2 Tab PO Q6H PRN Levothyroxine Sodium 88 Mcg Tablet 88 Mcg PO DAILY Neurontin (Gabapentin) 300 Mg Capsule 600 Mg PO HS TAKES 2 (300MG) CAPS Clopidogrel (Clopidogrel Bisulfate) 75 Mg Tablet 75 Mg PO DAILY Simvastatin 20 Mg Tablet 10 Mg PO HS TAKES OF A 20MG TAB Prazosin HCl 1 Mg Capsule 2 Mg PO HS TAKES 2 (1MG) CAPS Aspirin EC (Aspirin) 81 Mg Tablet. 81 Mg PO DAILY Eliquis (Apixaban) 5 Mg Tablet 5 Mg PO BID Omeprazole 20 Mg Capsule. 20 Mg PO DAILY Metoprolol Tartrate 50 Mg Tablet 25 Mg PO BID TAKES OF A 50MG TAB Melatonin 3 Mg Tablet 3-6 Mg PO HS PRN Assessment/Pt Instructions Discharged to [facility] Hospice Discharge Planning: <30 minutes discharge planning Discharge Instructions Discharge Diet: No Restrictions Activity as Tolerated: Yes Discharge Physical Examination Vital Signs Vital Signs Date Time Temp Pulse Resp B/P (MAP) Pulse Ox O2 Delivery O2 Flow Rate FiO2 11/30/21 08:00 94 Room Air 06/25/21 07:00 20 06/24/21 08:55 1.50 06/22/21 11:50 36.3 91 117/61 (79) General Appearance: No Apparent Distress, Chronically ill, Thin Respiratory: Lungs Clear, Normal Breath Sounds, No Respiratory Distress Cardiovascular: Regular Rate, Rhythm, Systolic Murmur Gastrointestinal: Normal Bowel Sounds, Soft Extremity: Non Tender, No Pedal Edema Skin: Cool, Ecchymosis, Erythema, Other (lower extremity wounds, stasis dermatitis) Neurologic/Psychiatric: Other (lethargic, uncooperative) Allergies: Coded Allergies: No Known Drug Allergies (Unverified , 10/14/16) Discharge Summary Date of Admission Jun 21, 2021 at 13:23 Date of Discharge Jun 26, 2021 at 12:13 Discharge Date: Jun 26, 2021 Discharge Time: 12:13 Admission Diagnosis Intractable pain due to acute limb ischemia Comfort Measures/ End of Life Care: Comfort Measures, Hospice (Hospital) Advance Care discuss with: patient, family member (s) Plan: initiate discussion, clarifying prognosis, identified end-of-life goals, developed treatment plan Time spent on discussion (min): 45 Discharge Diagnosis Intractable pain Ischemia of both lower extremities Peripheral vascular disease Metastatic lung cancer to the bone (1) Intractable pain Status: Acute (2) Ischemia of both lower extremities Status: Acute (3) Peripheral vascular disease Status: Acute (4) Lung cancer metastatic to bone Status: Acute (5) Comfort measures only status Status: Acute (6) Delirium Status: Acute PB OROZCO MD Jun 26, 2021 13:45
[2021-06-28] MEDS ORDERED: PATCH REMOVAL TP SCH (12:00)
== END 2021-06-26 12:13 | disposition hospice, inpatient (51) | DRG 300 ==
LOC: EDUNIT# 10:16 → ER 10:18 → 4TH 13:23
PROVIDERS: ADMIT Internal Medicine; ATTEND Internal Medicine
DX: E11.51 Type 2 diabetes mellitus with diabetic peripheral angiopathy without gangrene (principal); C34.90 Malignant neoplasm of unspecified part of unspecified bronchus or lung; C79.51 Secondary malignant neoplasm of bone; J44.9 Chronic obstructive pulmonary disease, unspecified; I25.10 Atherosclerotic heart disease of native coronary artery without angina pectoris; I77.1 Stricture of artery; E78.00 Pure hypercholesterolemia, unspecified; I10 Essential (primary) hypertension; E11.40 Type 2 diabetes mellitus with diabetic neuropathy, unspecified; K21.9 Gastro-esophageal reflux disease without esophagitis; M19.90 Unspecified osteoarthritis, unspecified site; G89.29 Other chronic pain; M54.9 Dorsalgia, unspecified; F43.10 Post-traumatic stress disorder, unspecified; E03.9 Hypothyroidism, unspecified; H35.30 Unspecified macular degeneration; F17.210 Nicotine dependence, cigarettes, uncomplicated; I48.91 Unspecified atrial fibrillation; F32.A Depression, unspecified; R41.0 Disorientation, unspecified; Z20.822 Contact with and (suspected) exposure to COVID-19; I25.2 Old myocardial infarction; Z86.73 Personal history of transient ischemic attack (TIA), and cerebral infarction without residual deficits; Z92.21 Personal history of antineoplastic chemotherapy; Z92.3 Personal history of irradiation; Z79.82 Long term (current) use of aspirin; Z79.899 Other long term (current) drug therapy; Z95.1 Presence of aortocoronary bypass graft; Z95.5 Presence of coronary angioplasty implant and graft; Z85.828 Personal history of other malignant neoplasm of skin; Z51.5 Encounter for palliative care
CPT/HCPCS: 36415; 71045; 80053; 85025; 85379; 85610; 85730; 87636; 93041; 93925; 94760

== ENCOUNTER 2021-06-26 09:08 | Inpatient (IN) | payer OTHER, MEDICARE ==
[~2021-06-26] VITALS: Ht 170 cm; Wt 66.0 kg
[~2021-06-26 09:08] MED LIST changes: +ACHD5005 PO; +APIX5TAB PO; +ASPI-1238 PO; +CLOP75TA28 PO; +GABA300C PO; +LEVO88TA54 PO; +PRAZ1CAP2 PO; +SIMV20TA26 PO
[2021-06-26] MEDS ORDERED: ARTIFICAL TEARS 0.4 ML UNIT DOSE (REFRESH PLUS) OU PRN (12:15)
[2021-06-26] MEDS ORDERED: fentaNYL PATCH 100 MCG (DURAGESIC) TD SCH (12:15)
[2021-06-26] MEDS ORDERED: SALIVA STIMULANT MOUTH SPRAY (BIOTENE) 1.5 OZ MM PRN (12:15)
[2021-06-26] MEDS ORDERED: RT-ALBUTEROL/IPRATROPIUM 3 ML (DUONEB) VIAL INH PRN (12:15)
[2021-06-26] MEDS ORDERED: NALOXONE 0.4 MG/ML 1 ML (NARCAN) VIAL IV PRN (12:15)
[2021-06-26] MEDS ORDERED: ONDANSETRON 4 MG/2 ML (SDV) Z0FRAN IVP PRN (12:15)
[2021-06-26] MEDS ORDERED: METOCLOPRAMIDE INJ 10 MG/2 ML (REGLAN) IV PRN (12:15)
[2021-06-26] MEDS ORDERED: ACETAMINOPHEN 650 MG SUPP (TYLENOL) PR PRN (12:15)
[2021-06-26] MEDS ORDERED: PATCH REMOVAL TP SCH (12:15)
[2021-06-26] MEDS ORDERED: BISACODYL 10 MG SUPP (DULCOLAX) PR PRN (12:15)
[2021-06-26] MEDS ORDERED: PROMETHAZINE INJ 25 MG/ML (PHENERGAN) AMP IVP PRN (12:15)
[2021-06-26] MEDS ORDERED: fentaNYL PATCH 25 MCG (DURAGESIC) TOP SCH (12:15)
[2021-06-26] MEDS ORDERED: GLYCOPYRROLATE 0.2 MG/ML (ROBINUL) 2 ML VIAL IV PRN (12:15)
[2021-06-26] MEDS ORDERED: diphenhydrAMINE 50 MG/ML INJ (BENADRYL) IV PRN (12:15)
[2021-06-26] MEDS: fentaNYL INJ 100 MCG/2 ML AMP IV PRN ×4 (14:43→19:37)
[2021-06-26] MEDS: LORazepam INJ 2 MG/ML (ATIVAN) VIAL IV SCH ×3 (14:46→20:33)
[2021-06-26] MEDS ORDERED: LORazepam INJ 2 MG/ML (ATIVAN) VIAL IV SCH (18:00)
[2021-06-26] MEDS: APIXABAN 5 MG (ELIQUIS) TABLET PO SCH (20:35)
[2021-06-27] MEDS: LORazepam INJ 2 MG/ML (ATIVAN) VIAL IV SCH ×6 (00:50→20:24)
[2021-06-27] MEDS: APIXABAN 5 MG (ELIQUIS) TABLET PO SCH ×2 (07:58→21:40)
[2021-06-27] MEDS: SENNA W/DOCUSATE (SENOKOT S) TABLET PO SCH (07:58)
[2021-06-27] MEDS: fentaNYL INJ 100 MCG/2 ML AMP IV PRN (08:53)
[2021-06-27] MEDS ORDERED: fentaNYL INJ 100 MCG/2 ML AMP IVP ONE (11:00)
[2021-06-27] MEDS ORDERED: NS IV 1000 ML 1,000 ML ONE (11:11)
[2021-06-27] MEDS: HYDROmorphone PCA 20 MG/100 ML NS IV PRN (11:32)
--- NOTE | 2021-06-27 13:42 | Progress Note - Hospitalist ---
Subjective HPI/CC On Admission Date Seen by Provider: Jun 27, 2021 Time Seen by Provider: 10:40 Subjective/Events-last exam He is in pain this morning. He did not receive pain meds all night other than his Fentanyl patch. His family is at the bedside. Objective Exam Vital Signs Vital Signs Date Time Temp Pulse Resp B/P (MAP) Pulse Ox O2 Delivery O2 Flow Rate FiO2 06/27/21 08:00 Room Air Capillary Refill : General Appearance: WD/WN, Chronically ill, Mild Distress (uncomfortable) Respiratory: Lungs Clear, Normal Breath Sounds, No Respiratory Distress Cardiovascular: Regular Rate, Rhythm, No Murmur Gastrointestinal: Soft; No Distended Extremity: Non Tender, No Pedal Edema Neurologic/Psychiatric: Alert, Disoriented Skin: Erythema, Other (stasis changes, heel ulcers) Results/Procedures Lab Patient resulted labs reviewed. Assessment/Plan Assessment and Plan Assess & Plan/Chief Complaint Intractable pain Ischemia of both lower extremities Peripheral vascular disease Delirium Comfort measures only status Disease not amenable to intervention Does not want to pursue amputations Continue comfort measures Continue Fentanyl patch Resume Dilaudid FOREST MANAGER Schedule Ativan, plus as needed Palliative care following [facility] assisting Metastatic lung cancer to the bone Previously received treatment Recent PET/CT reportedly showed lung lesions and bone lesion HTN HLD Afib Depression Diagnosis/Problems Diagnosis/Problems (1) Intractable pain Status: Acute (2) Ischemia of both lower extremities Status: Acute (3) Peripheral vascular disease Status: Acute (4) Lung cancer metastatic to bone Status: Acute (5) Delirium Status: Acute PB OROZCO MD Jun 27, 2021 13:42
[2021-06-28] MEDS: LORazepam INJ 2 MG/ML (ATIVAN) VIAL IV SCH ×6 (00:31→20:20)
[2021-06-28] MEDS ORDERED: NS IV 1000 ML 1,000 ML ONE (02:07)
[2021-06-28] MEDS ORDERED: NS IV 1000 ML 1,000 ML IV SCH (02:15)
[2021-06-28] MEDS: HYDROmorphone PCA 20 MG/100 ML NS IV PRN (08:41)
[2021-06-28] MEDS: APIXABAN 5 MG (ELIQUIS) TABLET PO SCH ×2 (09:00→21:50)
[2021-06-28] MEDS: SENNA W/DOCUSATE (SENOKOT S) TABLET PO SCH (09:00)
[2021-06-28] MEDS ORDERED: fentaNYL PATCH 25 MCG (DURAGESIC) TOP SCH (12:00)
[2021-06-28] MEDS ORDERED: FENTANYL 25 MCG PATCH REMOVAL TP SCH (12:00)
--- NOTE | 2021-06-28 16:31 | Progress Note - Hospitalist ---
Subjective HPI/CC On Admission Date Seen by Provider: Jun 28, 2021 Time Seen by Provider: 12:10 Subjective/Events-last exam He appears comfortable. He is sleeping. There is no family at the bedside at this time. Objective Exam Vital Signs Vital Signs Date Time Temp Pulse Resp B/P (MAP) Pulse Ox O2 Delivery O2 Flow Rate FiO2 06/28/21 10:21 Room Air Capillary Refill : General Appearance: No Apparent Distress, Chronically ill, Thin Respiratory: No Respiratory Distress Cardiovascular: Regular Rate, Rhythm, No Edema Gastrointestinal: Normal Bowel Sounds, Soft Extremity: Non Tender, No Pedal Edema, Other (stasis dermatitis) Neurologic/Psychiatric: Other (sleeping, appears comfortable) Skin: Warm/Dry, Other (bilateral lower extremity wounds) Results/Procedures Lab Patient resulted labs reviewed. Assessment/Plan Assessment and Plan Assess & Plan/Chief Complaint Intractable pain Ischemia of both lower extremities Peripheral vascular disease Delirium Comfort measures only status Continue comfort measures Continue Fentanyl patch Dilaudid SLURRY TANK TENDER Scheduled Ativan, plus as needed Palliative care following [facility] assisting Metastatic lung cancer to the bone Previously received treatment Recent PET/CT reportedly showed lung lesions and bone lesion HTN HLD Afib Depression Diagnosis/Problems Diagnosis/Problems (1) Intractable pain Status: Acute (2) Ischemia of both lower extremities Status: Acute (3) Peripheral vascular disease Status: Acute (4) Lung cancer metastatic to bone Status: Acute (5) Delirium Status: Acute PB OROZCO MD Jun 28, 2021 16:30
[2021-06-29] MEDS ORDERED: fentaNYL PATCH 100 MCG (DURAGESIC) TD SCH (12:00)
[2021-06-29] MEDS ORDERED: [UNRECOGNIZED DRUG - REMARK] TP SCH (12:00)
--- NOTE | 2021-06-29 21:48 | Discharge Summary ---
Discharge Summary Hospital Course Problems/Dx: (1) Intractable pain Status: Acute (2) Ischemia of both lower extremities Status: Acute (3) Peripheral vascular disease Status: Acute (4) Lung cancer metastatic to bone Status: Acute (5) Delirium Status: Acute Hospital Course Date of Admission: Jun 26, 2021 at 12:19 Admission Diagnosis : Intractable pain secondary to bilateral lower limb ischemia due to peripheral vascular disease Family Physician/Provider: Ridge Alves DO Date of Discharge: 06/28/21 Discharge Diagnosis: Intractable pain secondary to bilateral lower limb ischemia due to peripheral vascular disease, metastatic lung cancer to the bone Hospital Course: Solitario Peck was a 76 year old male with severe peripheral vascular disease and metastatic lung cancer to the bone who was admitted with intractable pain secondary to bilateral lower limb ischemia due to peripheral vascular disease. He had followed with Dr. Wolf, vascular surgery, and no further interventions were available to treat his severe peripheral vascular disease. The only treatment option available was bilateral lower extremity amputation which the patient adamantly refused. He elected to pursue comfort measures only. He was admitted to [facility] with [facility]. He was treated with Fentanyl patches, Dilaudid CRIMINAL INVESTIGATOR, and IV Fentanyl. His pain was controlled and he was made comfortable. He subsequently on 06/28/2021 at 2253. Labs and Pending Lab Test: Home Meds Active Reported Hydrocodone-Acetamin 5-325 mg (Hydrocodone/Acetaminophen) 1 Each Tablet 1-2 Tab PO Q6H PRN Levothyroxine Sodium 88 Mcg Tablet 88 Mcg PO DAILY Neurontin (Gabapentin) 300 Mg Capsule 600 Mg PO HS TAKES 2 (300MG) CAPS Clopidogrel (Clopidogrel Bisulfate) 75 Mg Tablet 75 Mg PO DAILY Simvastatin 20 Mg Tablet 10 Mg PO HS TAKES OF A 20MG TAB Prazosin HCl 1 Mg Capsule 2 Mg PO HS TAKES 2 (1MG) CAPS Aspirin EC (Aspirin) 81 Mg Tablet.dr 81 Mg PO DAILY Eliquis (Apixaban) 5 Mg Tablet 5 Mg PO BID Omeprazole 20 Mg Capsule.dr 20 Mg PO DAILY Metoprolol Tartrate 50 Mg Tablet 25 Mg PO BID TAKES OF A 50MG TAB Melatonin 3 Mg Tablet 3-6 Mg PO HS PRN Assessment/Pt Instructions Patient Discharge Physical Examination Vital Signs Vital Signs Date Time Temp Pulse Resp B/P (MAP) Pulse Ox O2 Delivery O2 Flow Rate FiO2 12/2/21 20:00 Room Air Allergies: Coded Allergies: No Known Drug Allergies (Unverified , 10/14/16) Discharge Summary Date of Admission Jun 26, 2021 at 12:19 Date of Discharge Jun 28, 2021 at 22:53 Discharge Date: Jun 28, 2021 Discharge Time: 22:53 Admission Diagnosis Intractable pain secondary to bilateral lower extremity ischemia due to severe peripheral vascular disease Comfort Measures/ End of Life Care: Comfort Measures, Hospice (Hospital) Advance Care discuss with: patient, family member (s) Plan: initiate discussion, clarifying prognosis, identified end-of-life goals, developed treatment plan Time spent on discussion (min): 30 Cardiopulmonary Arrest: Cardiorespiratory Arrest Date of : Jun 28, 2021 Time of : 22:53 Discharge Diagnosis Intractable pain Ischemia of both lower extremities Peripheral vascular disease Delirium Comfort measures only status Continue comfort measures Continue Fentanyl patch Dilaudid CRIMINAL INVESTIGATOR Scheduled Ativan, plus as needed Palliative care following [facility] assisting Metastatic lung cancer to the bone Previously received treatment Recent PET/CT reportedly showed lung lesions and bone lesion HTN HLD Afib Depression (1) Intractable pain Status: Acute (2) Ischemia of both lower extremities Status: Acute (3) Peripheral vascular disease Status: Acute (4) Lung cancer metastatic to bone Status: Acute (5) Delirium Status: Acute PB OROZCO MD Jun 29, 2021 21:45
== END 2021-06-28 22:53 | disposition expired | DRG 951 ==
LOC: 4TH 12:19
PROVIDERS: ADMIT Internal Medicine; ATTEND Internal Medicine
DX: Z51.5 Encounter for palliative care (principal); C34.90 Malignant neoplasm of unspecified part of unspecified bronchus or lung; C79.51 Secondary malignant neoplasm of bone; Z66 Do not resuscitate; R41.0 Disorientation, unspecified; I70.223 Atherosclerosis of native arteries of extremities with rest pain, bilateral legs; I46.9 Cardiac arrest, cause unspecified; I10 Essential (primary) hypertension; I48.91 Unspecified atrial fibrillation; F32.A Depression, unspecified; Z20.822 Contact with and (suspected) exposure to COVID-19; Z95.1 Presence of aortocoronary bypass graft; Z95.5 Presence of coronary angioplasty implant and graft; J44.9 Chronic obstructive pulmonary disease, unspecified; I25.10 Atherosclerotic heart disease of native coronary artery without angina pectoris; I25.2 Old myocardial infarction; E78.00 Pure hypercholesterolemia, unspecified; Z86.73 Personal history of transient ischemic attack (TIA), and cerebral infarction without residual deficits; E11.40 Type 2 diabetes mellitus with diabetic neuropathy, unspecified; K21.9 Gastro-esophageal reflux disease without esophagitis; M19.90 Unspecified osteoarthritis, unspecified site; G89.29 Other chronic pain; M54.9 Dorsalgia, unspecified; E03.9 Hypothyroidism, unspecified; H35.30 Unspecified macular degeneration; Z92.21 Personal history of antineoplastic chemotherapy; Z92.3 Personal history of irradiation; F43.10 Post-traumatic stress disorder, unspecified